=== PATIENT | female | born 1985 | race Caucasian/White ===

== ENCOUNTER 2024-07-15 09:08 | Outpatient (OUT) | payer OTHER, SELFPAY ==
[2024-07-15 09:41] LABS: Basophils Percent Auto 0.4 % (0.2-2.0); Eosinophils Absolute Auto 0.4 10^3/uL (0.0-0.7); Eosinophils Percent Auto 4.5 % (0.9-7.0); Hemoglobin 13.3 g/dL (12.0-16.0); Immature Granulocytes Abs Auto 0.02 10^3/uL (0.00-0.03); Immature Granulocytes Pct Auto 0.2 % (0.0-0.5); Lymphocytes Absolute Auto 2.2 10^3/uL (1.2-3.8); Lymphocytes Percent Auto 24.1 % (20.5-60.0); Mean Corpuscular HGB Conc 33.3 g/dL (29.9-35.2); Mean Corpuscular Volume 90.3 fL (81.0-99.0); Mean Platelet Volume 9.6 fL (9.5-13.5); Monocytes Absolute Auto 0.9 10^3/uL (0.3-0.8); Monocytes Percent Auto 9.8 % (1.7-12.0); Neutrophils Absolute Auto 5.5 10^3/uL (1.4-6.5); Platelet Count 329 10^3/uL (150-450); Red Blood Count 4.43 10^6/uL (4.20-5.40); Red Cell Distribution Width 12.1 % (11.0-15.0)
--- NOTE | 2024-07-15 09:44 | MR_ITS ---
The [address] [address] Patient Name: MARIOLA FERREIRA MRN: [id number] date: 1985 Sex: F Assigned Patient Location: MRI Current Patient Location: MRI Accession/Order Number: [id number] Exam Date: 07/15/2024 09:58 Report Date: 07/15/2024 10:53 At the request of: DISHA CASTILLO Procedure: MR head/brain wo con MR head/brain wo con, 07/15/2024 9:58 AM EDT INDICATION: MULTIPLE FALLS R29.6 COMPARISON: Prior CT of the head dated 10/26/2022 TECHNIQUE: Multiplanar, multisequential MRI images of brain were obtained without injection of contrast. FINDINGS: The cerebral sulci as well as ventricular system are appropriate for age. There is no restricted diffusion. There is no intracranial mass, mass effect, midline shift, intra or extra-axial fluid collection or large hemorrhage. Normal flow-void in the intracranial vessels is noted. Mild mucosal thickening within the maxillary sinuses is noted. The visualized portions of orbits, mastoid air cells as well as remainder of paranasal sinuses are unremarkable. MR/MR head/brain wo con IMPRESSION: No acute intracranial process is noted. No definite radiological finding to explain patient's symptoms. Electronically authenticated by: ROSA BURDEN Date: 07/15/2024 10:53
[2024-07-15 10:21] LABS: Anion Gap 9.8; BUN Creatinine Ratio 13.2; Calcium 8.7 mg/dL (8.5-10.1); Carbon Dioxide 28.2 mmol/L (21.0-32.0); Chloride 104 mmol/L (98-107); Estimated GFR (African America >60 (>=60); Estimated GFR (Non-African Ame >60 (>=60); Glucose 90 mg/dL (74-106); Sodium 138 mmol/L (136-145); Thyroid Stimulating Hormone 1.164 uIU/mL (0.358-3.740)
== END 2024-07-15 09:09 | disposition home or self-care (01) ==
LOC: MRI 09:13
PROVIDERS: PCP Family Medicine; Visit Provider Family Medicine
DX: R29.6 Repeated falls (principal); N92.0 Excessive and frequent menstruation with regular cycle; R42 Dizziness and giddiness; R53.83 Other fatigue
CPT/HCPCS: 36415; 70551; 80048; 82728; 84443; 85025

== ENCOUNTER 2025-02-24 09:02 | Outpatient (OUT) | payer OTHER, SELFPAY ==
--- NOTE | 2025-02-24 09:15 | ECG_ITS ---
The [facility] Test Date: 2025-02-24 Pat Name: MARIOLA FERREIRA Department: Room: - Gender: Female [employer]: : 1985 Requested By: DISHA CASTILLO Order Number: [id number] Reading MD: NARAYAN OVIEDO M.D. Measurements Intervals [place] Rate: 72 P: 34 MD: 138 QRS: 21 QRSD: 91 T: 42 QT: 380 QTc: 416 Interpretive Statements SINUS RHYTHM LOW QRS VOLTAGE IN PRECORDIAL LEADS [QRS DEFLECTION < 1.0 mV IN CHEST LEADS] Abnormal ECG No previous ECG available for comparison Electronically Signed On 02-24-2025 17:57:03 EDT by NARAYAN OVIEDO M.D.
--- NOTE | 2025-02-24 09:41 | US_ITS ---
[place] [address] Patient Name: MARIOLA FERREIRA MRN: [id number] date: 1985 Sex: F Assigned Patient Location: CARD Current Patient Location: CARD Accession/Order Number: [id number] Exam Date: 02/24/2025 12:04 Report Date: 02/24/2025 12:05 At the request of: DISHA CASTILLO MD Procedure: US right upper quadrant LIMITED ABDOMINAL ULTRASOUND: CLINICAL HISTORY: Right Upper Quadrant Abdominal Pain COMPARISON: None TECHNIQUE: Grayscale and color Doppler images of the right upper quadrant organs were obtained. FINDINGS: Pancreas: Visualized portions appear unremarkable. Liver: Unremarkable. Gallbladder: Unremarkable. CBD: 2.5 mm RT KIDNEY: No Hydronephrosis US/US right upper quadrant IMPRESSION: NO ACUTE PROCESS. . Impression dictated by: Leonard Orona Jr., D.O. 02/24/2025 12:05 PM Dictation Location: [place] [address] Electronically authenticated by: [id number] Y Date: 02/24/2025 12:05
== END 2025-02-24 09:03 | disposition home or self-care (01) ==
LOC: CARD 09:02
PROVIDERS: PCP Family Medicine; Visit Provider Family Medicine
DX: R10.11 Right upper quadrant pain (principal); R07.9 Chest pain, unspecified
CPT/HCPCS: 76705; 93005

== ENCOUNTER 2025-07-24 21:17 | Emergency (ER) | payer OTHER, SELFPAY ==
[2025-07-24] VITALS (10 sets, daily range): BP systolic 107–147; BP diastolic 62–86; PULSE 69–79; TEMP 37.1; O2SAT 96–100; BMI 33.8
--- NOTE | 2025-07-24 21:35 | CT_ITS ---
The [address] [address] Patient Name: MARIOLA FERREIRA MRN: [id number] date: 1985 Sex: F Assigned Patient Location: ER Current Patient Location: ED.MAIN Accession/Order Number: [id number] Exam Date: 07/24/2025 21:43 Report Date: 07/24/2025 22:00 At the request of: PING CLEARY MD Procedure: CT head/brain wo con Unenhanced head CT TECHNIQUE: Contiguous axial imaging of the head. The CT exam was performed using one or more the following dose reduction techniques: Automated exposure control, adjustment of the MA and/or Kv according to patient size, or use of the iterative reconstruction technique. COMPARISON: MRI the brain 07/15/2024 HISTORY: Nausea. Dizziness VENTRICLES: Within normal limits ATROPHY: None BRAIN PARENCHYMA: Adequate sweeney-white matter differentiation identified. HEMORRHAGE: None HERNIATION: No mass effect or herniation INFARCTION: No recent vascular distribution infarction is seen. EXTRA-AXIAL FLUID COLLECTIONS None MIDBRAIN: Unremarkable SHELLY: Unremarkable MEDULLA: Unremarkable SINUSES: Unremarkable ORBITS: Grossly unremarkable MASTOIDS: Unremarkable BONY STRUCTURES Intact ADDITIONAL FINDINGS: CT/CT head/brain wo con IMPRESSION: No acute findings. Impression dictated by: Guillermo Ruiz M.D. 07/24/2025 10:00 PM Dictation Location: [place] [address] Electronically authenticated by: [id number] Y Date: 07/24/2025 22:00
--- NOTE | 2025-07-24 21:35 | ED_ITS ---
HPI HPI - General Adult General Chief complaint: Dizziness Stated complaint: DIZZINESS, NAUSEA Time Seen by Provider: 07/24/25 21:19 Source: patient Mode of arrival: walk-in Limitations: no limitations History of Present Illness HPI narrative: 39-year-old female presented for an abrupt onset episode of vertigo and lightheadedness. This happened while she was standing in her kitchen talking to her friend. She felt like she was spinning. She has been slowly weaning off Pristiq over period of many months and has no concern that the medicine is the cause of this symptom. She had an episode like this several months ago but it was not as bad and she did not seek medical care at that time. Related Data Home Medications ?Medication ?Instructions ?Recorded ?Confirmed albuterol sulfate 90 mcg/actuation 2 inh inhalation Q6 H PRN shortness 07/24/25 07/24/25 aerosol inhaler of breath or wheezing cetirizine 10 mg tablet (24Hour 10 mg PO DAILY 5 07/24/25 Allergy) clonazepam 0.5 mg tablet 0.5 mg PO QDAY PRN anxiety 1 07/24/25 desvenlafaxine succinate 25 mg 25 mg PO .COMPLEX 07/2407/24/25 tablet,extended release 24 hr (Pristiq) fluoxetine 20 mg capsule 20 mg PO QDAY 07/24/2507/24 Previous Rx's ?Medication ?Instructions ?Recorded meclizine 25 mg tablet 25 mg PO TID PRN dizziness # 20 tabs 07/24/25 Allergies Allergy/AdvReac Type Severity Reaction Status Date / Time Sulfa (Sulfonamide Allergy Rash Verified 07/24/25 21:24 Antibiotics) levofloxacin (From Levaquin) AdvReac Muscle Pain Verified 07/24/25 21:24 Review of Systems ROS Narrative A ten point review of systems is negative except as noted above. PFSH PFSH Social History Little interest or pleasure in doing things: not at all Feeling down, depressed, or hopeless: not at all Exam Narrative Exam Narrative: Nurses note and vital signs reviewed and patient is not hypoxic. General:The patient appears in no apparent distress.Patient is resting comfortably on cart. Skin:Warm, dry, no pallor noted.There is no rash noted. Head:Normocephalic, atraumatic Eye: Normal conjunctiva, no drainage, EOMI. PERRL Ears, Nose, Mouth, and Throat: oral mucosa is moist. Nares patent. Cardiovascular:Regular Rate and Rhythm Respiratory:Patient is in no distress, no accessory muscle use, lungs are clear to auscultation, no wheezing, rales or rhonchi Back:non-tender GI: Soft and nontender Musculoskeletal: The patient has no evidence of calf tenderness, no pitting ed erasmo, symmetrical pulses noted bilaterally Neurological:A&O x4, normal speech; upper lower extremity strength 5 out of 5 and symmetric. Psychiatric:Cooperative Constitutional Vital Signs, click to edit/add: Last Vital Signs Temp 98.7 F 07/24/25 21:30 Pulse 79 07/24/25 22:30 Resp 25 H 07/24/25 22:30 BP 147/86 H 07/24/25 21:30 Pulse Ox 96 07/24/25 22:30 O2 Del Method Room Air 07/24/25 21:30 Course Vital Signs Vital signs: Vital Signs Pulse Oximetry 98 07/24/25 21:22 Temperature 98.7 F 07/24/25 21:30 Pulse Rate 79 07/24/25 22:30 Respiratory Rate 25 H 07/24/25 22:30 Blood Pressure 147/86 H 07/24/25 21:30 Pulse Oximetry 96 07/24/25 22:30 Oxygen Delivery Method Room Air 07/24/25 21:30 Medical Decision Making [facility] Narrative Medical decision making narrative: Her workup including CT brain is negative. She was given Antivert and seems to be feeling improved. She is discharged home with a prescription for Antivert and follow-up with her doctor if needed. Treatment diagnosis and follow-up were discussed with the patient. Differential Diagnosis Differential Diagnosis: Vertigo, dehydration, anemia, cardiac dysrhythmia Lab Data Lab results reviewed: Yes I reviewed the patient's lab results Labs: Lab Results 07/24/25 Range/Units 21:40 WBC 10.1 (4.0-11.0) 10^3/uL RBC 4.25 (4.20-5.40) 10^6/uL Hgb 13.2 (12.0-16.0) g/dL Hct 37.4 (36.0-48.0) % MCV 88.0 (81.0-99.0) fL MCH 31.1 (26.7-34.0) pg MCHC 35.3 H (29.9-35.2) g/dL RDW 12.0 (11.0-15.0) % Plt Count 245 (150-450) 10^3/uL MPV 9.7 (9.5-13.5) fL Neut % (Auto) 62.1 (43.0-75.0) % Lymph % (Auto) 24.7 (20.5-60.0) % [place] % (Auto) 9.4 (1.7-12.0) % Eos % (Auto) 3.2 (0.9-7.0) % Baso % (Auto) 0.3 (0.2-2.0) % Neut # (Auto) 6.3 (1.4-6.5) 10^3/uL Lymph # (Auto) 2.5 (1.2-3.8) 10^3/uL [place] # (Auto) 1.0 H (0.3-0.8) 10^3/uL Eos # (Auto) 0.3 (0.0-0.7) 10^3/uL Baso # (Auto) 0.0 (0.0-0.1) 10^3/uL Abs Immat Gran (auto) 0.03 (0.00-0.03) 10^3/uL Imm/Tot Granulo (auto) 0.3 (0.0-0.5) % Sodium 137 (136-145) mmol/L Potassium 3.3 L (3.5-5.1) mmol/L Chloride 102 (98-107) mmol/L Carbon Dioxide 23.3 (21.0-32.0) mmol/L Anion Gap 15.0 BUN 14.0 (7.0-18.0) mg/dL Creatinine 0.98 (0.55-1.02) mg/dL Est GFR ( Amer) >60 (>=60 mL/min/1.73m^2) Est GFR (Non-Af Amer) >60 (>=60 mL/min/1.73m^2) BUN/Creatinine Ratio 14.3 Glucose 108 H (74-106) mg/dL Calcium 8.6 (8.5-10.1) mg/dL Serum HCG, Qual Negative (NEGATIVE) Imaging Data CT scan - head: Radiologist's impression: ITS Impressions Head CT 07/24/25 21:35 IMPRESSION: No acute findings. Impression dictated by: Guillermo Ruiz M.D. 07/24/2025 10:00 PM Dictation Location: [place] [address] Electronically authenticated by: [id number] Y Date: 07/24/2025 22:00 ECG Data Attestation: I personally reviewed and interpreted this ECG as follows: (EKG on my interpretation shows sinus rhythm with rate of 61 and no acute change) Discharge Plan Discharge Chief Complaint: Dizziness Clinical Impression: Vertigo Patient Disposition: Home, Self-Care Time of Disposition Decision: 22:48 Condition: Good Mode of Transportation: Private Vehicle Prescriptions / Home Meds: New meclizine 25 mg tablet 25 mg PO TID PRN (Reason: dizziness) Qty: 20 0RF No Action albuterol sulfate 90 mcg/actuation HFA aerosol inhaler 2 inh INHALATION Q6H PRN (Reason: shortness of breath or wheezing) clonazepam 0.5 mg tablet 0.5 mg PO QDAY PRN (Reason: anxiety) cetirizine [24Hour Allergy] 10 mg tablet 10 mg PO DAILY fluoxetine 20 mg capsule 20 mg PO QDAY desvenlafaxine succinate [Pristiq] 25 mg tablet extended release 24 hr 25 mg PO .COMPLEX Rx Instructions: 25 mg orally every 3 days; Print Language: Iraqi Referrals: Teresa Lagos MD [Primary Care Provider, Family Practice] - 1 week
--- NOTE | 2025-07-24 21:35 | ECG_ITS ---
The [facility] Test Date: 2025-07-24 Pat Name: MARIOLA FERREIRA Department: Room: - Gender: Female [employer]: : 1985 Requested By: [id number] Order Number: [id number] Reading MD: NARAYAN OVIEDO M.D. Measurements Intervals [place] Rate: 61 P: 38 NV: 140 QRS: 20 QRSD: 92 T: 12 QT: 428 QTc: 432 Interpretive Statements 1100 Sinus rhythm 8102 Low QRS voltage in chest leads Abnormal ECG Compared to ECG 02/24/2025 09:18:25 No significant changes Electronically Signed On 07-25-2025 18:39:18 EDT by NARAYAN OVIEDO M.D.
[2025-07-24 21:50] LABS: Hematocrit 37.4 % (36.0-48.0); Hemoglobin 13.2 g/dL (12.0-16.0); Immature Granulocytes Abs Auto 0.03 10^3/uL (0.00-0.03); Immature Granulocytes Pct Auto 0.3 % (0.0-0.5); Lymphocytes Absolute Auto 2.5 10^3/uL (1.2-3.8); Mean Corpuscular HGB Conc 35.3 g/dL (29.9-35.2); Mean Corpuscular Hemoglobin 31.1 pg (26.7-34.0); Mean Corpuscular Volume 88.0 fL (81.0-99.0); Platelet Count 245 10^3/uL (150-450); Red Blood Count 4.25 10^6/uL (4.20-5.40); White Blood Count 10.1 10^3/uL (4.0-11.0)
--- OUTSIDE RECORDS SUMMARY | 2025-07-24 21:56 | XMS_ITS | Clinical Summary ---
Author Organization [facility] 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 1 Bottle 3 5 Active albuterol sulfate HFA (VENTOLIN HFA) 108 (90 Base) MCG/ACT inhaler Inhale 2 puffs into the lungs every 4 hours as needed for Wheezing or Shortness of Breath 1 Inhaler 1 9 Active fluticasone-kyrie meterol (ADVAIR HFA) 115-21 MCG/ACT inhaler Acti ve desvenlafaxine succinate (PRISTIQ) 100 MG TB24 extended release tablet Take 1 tablet by mouth daily 3 Active clonazePAM (KLONOPIN) 0.5 MG tablet take 1 tablet by mouth once daily if needed for anxiety 3 Active cyclobenzaprine (FLEXERIL) 5 MG tablet 1 Active Fremanezumab-vf rm 225 MG/1.5ML SOSY Inject into the skin Active dicyclomine (BENTYL) 10 MG capsule Take 1 capsule by mouth 3 times daily as needed (abdominal pain) 15 capsule 5 Active lisdexamfetamin e (VYVANSE) 10 MG capsule TAKE 1 CAPSULE BY MOUTH EVERY MORNING WITH FOOD 5 Active metroNIDAZOLE (METROGEL) 0.75 % gel APPLY TO FACE EVERY DAY AT BEDTIME 5 Active Active Problems Problem Noted Date Diagnosed Date Anxiety Asthma Overview (02/08/2019): allergy induced Allergic rhinitis Immunizations Immunization Administration Dates Next Due DTP 07/04/1986,04/04/1986,01/31/1986 DTaP vaccine 06/14/1991,07/17/1989 Hepatitis A 07/28/2014,06/17/2014 Hepatitis A Vaccine 05/23/2015 Hepatitis B vaccine 05/23/2015 Hib vaccine 02/05/1988 MMR, PRIORIX, M-M-R II, (age 12m+), SC, 0.5mL 05/23/2015,06/17/2014,06/12/1987 Pneumococcal, PPSV23, PNEUMO VAX 23, (age 2y+), SC/IM, 0.5mL 07/15/2019 Polio OPV 06/14/1991, 7,04/04/1986,1985 TDaP, ADACEL (age 10y-64y), BOOSTRIX (age 10y+), IM, 0.5mL 01/21/2014,01/22/2013 Family History Medical History Relation Name Comments Arthritis Father chronic back is sues Arthritis Maternal Grandmother High Blood Pressure Maternal Grandmother Depression Mother Other Mother interstitial cy stitis Arthritis Paternal Grandfather Cancer Paternal Grandfather melanom a High Blood Pressure Paternal Grandfather Diabetes Paternal Grandmother High Blood Pressure Paternal Grandmother Other Sister POTS Relation Name Status Comments Father Alive Maternal Grandfather Alive Maternal Grandmother Alive Mother Alive Paternal Grandfather Alive Paternal Grandmother Alive Sister Alive Social History Tobacco Use Types Packs/Day Years Used Date Smoking Tobacco: Never Smokeless Tobacco: Never Tobacco Cessation:Counseling Given: Yes Alcohol Use Standard Drinks/Week Comments Yes 0 (1 standard drink = 0.6 oz pur e alcohol) rarely AUDIT-C Answer Date Recorded Q1: How often do you have a drink containing alc ohol? Monthly or less 03/01/2025 Q2: How many drinks containi ng alcohol do you have on a typical day when you are drinking? 1 or 2 03/01/2025 Q3: How often do you have si x or more drinks on one occasion? Less than monthly 03/01/2025 Overall Financial Resource Strain (CARDIA) Answe r Date Recorded How hard is it for you to pa y for the very basics like food, housing, medical care, and heating? Somewhat hard 01/14/2024 PHQ-2 Answer Date Recorded PHQ-9 Total Score 2 01/14/2024 Hunger Vital Sign Answer Date Recorded Within the past 12 months, y ou worried that your food would run out before you got the money to buy more. Never true 01/14/20 Within the past 12 months, t he food you bought just didn't last and you didn't have money to get more. Never true 01/14/2024 PRAPARE - Transportation Answer Date Re corded Lack of Transportation (Medical) Not on file 01/14/2024 In the past 12 months, has l ack of transportation kept you from meetings, work, or from getting things needed for daily living? No 01/14/2024 Housing Stability Vital Sign Answer Andrews e Recorded Unable to Pay for Housing in the Last Year Not o n file 01/14/2024 Number of Places Lived in the Last Year Not on f ile 01/14/2024 In the last 12 months, was t here a time when you did not have a steady place to sleep or slept in a jail (including now)? No 01/14/2024 Food Insecurity Answer Date Recorded Within the past 12 months, y ou worried that your food would run out before you got the money to buy more. 1 01/14/2024 Within the past 12 months, t he food you bought just didn't last and you didn't have money to get more. 1 01/14/2024 Interpersonal Safety Domain Source: IP Abuse Scr eening Answer Date Recorded Physical abuse Denies 03/01/2025 Verbal abuse Denies 03/01/2025 Emotional abuse Denies 03/01/2025 Financial abuse Denies 03/01/2025 Sexual abuse Denies 03/01/2025 Comments No Sex and Gender Information Value Date Recorded Sex Assigned at Not on file Legal Sex Female 1:24 PM EST Gender Identity Not on file Sexual Orientation Not on file Last Filed Vital Signs Vital Sign Reading Time Taken Comments Blood Pressure 100/70 03/03/2025 11:33 AM EDT Pulse 86 03/03/2025 11:33 AM EDT Temperature 36.8 C (98.2 F) 03/03/2025 11:33 AM EDT Respiratory Rate 16 03/01/2025 2:57 PM EDT Oxygen Saturation 97% 03/03/2025 11: 33 AM EDT Inhaled Oxygen Concentration - - Weight 88.8 kg (195 lb 12.8 oz) 025 11:33 AM EDT Height 165.1 cm (5' 5 ) 10/13/2024 2:11 PM EST Body Mass Index 32.58 10/13/2024 2:11 PM EST Plan of Treatment Health Maintenance Due Date Last Done Comments HIV screen 2000 Hepatitis C screen 2003 Pap smear 2006 Cervical cancer screen 2015 HPV (without or with Pap) 2015 Pneumococcal 0-49 years Vaccine (2 of 2 - PCV) 07/15/2020 07/15/2019 Depression Screen 01/13/2025 01/14/2024 Flu vaccine (#1) 05/23/2025 COVID-19 Vaccine ( - season) 2025 DTaP/Tdap/Td vaccine (9 - Td or Tdap) 11/16/2032 11/16/2022, 01/21/2014, 01/22/2013, Additional history exists Hib vaccine Completed 02/05/1988 Polio vaccine Completed 06/14/1991, 06/24, 04/04/1986, Additional history exists Hepatitis A vaccine Completed 05/23/2015, 07/28/2014, 07/28/2014, Additional history exists Hepatitis B vaccine Completed 05/23/2015, 07/28/2014, 06/17/2014 HPV vaccine (No Doses Required) Completed Meningococcal (ACWY) vaccine Aged Out No longer eligible based on patient's age to complete this topic Meningococcal B vaccine Aged Out No l onger eligible based on patient's age to complete this topic Varicella vaccine Discontinued Insurance Octane Lending Octane Lending Octane Lending Care Teams Landscape Architecture Professor Relationship Specialty Start Date End Date Kayy Ayala DO [address] [place] [address], [place] [id number] PCP - General 10/10/15
--- OUTSIDE RECORDS SUMMARY | 2025-07-24 21:57 | XMS_ITS | CCD ---
Author Organization [facility] CliniSyoh Care Team Providers Care Cost Estimator Name Role Phone Jacy Younger Unavailable EKATERINA BINGHAM Primary Care Physician Ana Ayala Primary Care Provider [phone] Ana Ayala DO Primary Care Provider Ekaterina Bingham DO. Primary Care Provider JULITO KOEHLER Attending Unavailab EKATERINA Colon Primary Care Unavailable Ekaterina Bingham DO Primary Care Provider [phone] Jacy Younger CNP Primary Care Provide r Carisa MOLINA, Jacy Woodall Primary Care Provide r Disha Castillo Unavailable Ana Ayala DO Primary Care Provider ANNA, DR DISHA Avilez Admitting Unavailable ANNA, DR DISHA Avilez Attending Unavailable ANNA, DR DISHA Avilez Primary Care Unavailable ANNA, DR DISHA Avilez Primary Care Unavailable DAVIS ., DR TRACY Admitting Unavailable DAVIS Aguilar, DR TRACY Attending Unavailable DAKOTAH, DR WARNER Carney Consulting Unavailable YEE ., VICKI AMBROSIO Consulting Unavailabl e ANNA, DR DISHA Avilez Admitting Unavailable ANNA, DR DISHA Avilez Attending Unavailable ANNA, DR DISHA Avilez Primary Care Unavailable ANNA, DR DISHA Avilez Admitting Unavailable ANNA, DR DISHA Avilez Attending Unavailable ANNA, DR DISHA Avilez Primary Care Unavailable EDIE, DR CLEVELAND Gan Consulting Unavailable ANNA, DR DISHA Avilez Consulting Unavailable ANNA, DR DISHA Avilez Primary Care Unavailable ANNA, DR DISHA Avilez Admitting Unavailable ANNA, DR DISHA Avilez Attending Unavailable EDIE, DR CLEVELAND Gan Consulting Unavailable CASTILLO, DR DISHA Avilez Consulting Unavailable CASTILLO, DR DISHA Avilez Admitting Unavailable CASTILLO, DR DISHA Avilez Attending Unavailable CASTILLO, DR DISHA Avilez Primary Care Unavailable WEST, DR CLEVELAND Gan Consulting Unavailable CASTILLO, DR DISHA Avilez Consulting Unavailable CASTILLO, DR DISHA Avilez Admitting Unavailable CASTILLO, DR DISHA Avilez Attending Unavailable CASTILLO, DR DISHA Avilez Primary Care Unavailable CASTILLO, DR DISHA Avilez Consulting Unavailable Magalis Hutton Unavailable Disha Castillo MD Primary Care Provider [phone] Attending Unavailable LYNNE NOGUEIRA Attending Unavailable LYNNE NOGUEIRA Attending Unavailable Disha Castillo MD Primary Care Provider Disha Castillo MD Attending Provider Disha Castillo Attending Unavailable Anna, Disha Avilez Primary Care Unavailable Disha Castillo Admitting Unavailable Ana Ayala DO Primary Care Provider [phone] MT BAEZ Attending Unavailable ANA AYALA Primary Care Unavailable Disha Castillo MD Primary Care Provider Disha Castillo MD Attending Provider Griselda Mcrae APRN Attending Provider [phone] Disha Castillo MD Primary Care Provider Magalis Hutton APRN Attending Provider Unavailable Unavailable Unavailable Allergies Allergy Classification Reported Allergen(s) Allergy Type Date of Onset Reaction(s) Facility Cat Hair Extract (2 sources) Cat Hair Extract Drug Allergy 016 [facility] Quinolones (antibiotic) (9 sources) levoFLOXacin; Translations: [LEVOFLOXACIN] Drug Allergy Other (See Comments) [facility] Sulfamethoxazole / Trimethoprim (6 sources) Sulfamethoxazole / Trimethoprim Drug Allergy [facility] Sulfonamides (antibiotic) (4 sources) Sulfonamides (Antibiotic); Translations: [SULFA (SULFONAMIDE ANTIBIOTICS)] Drug Allergy 014 Rash [facility] (20 sources) levoFLOXacin Drug Allergy 018 [facility] (11 sources) Sulfonamides (Antibiotic) Propensity to adverse reactions to drug Rash [facility] (6 sources) Cat Hair Extract Drug Allergy [place] (3 sources) levoFLOXacin Drug Allergy Other (See Comments) [place] (1 source) Sulfonamides (Antibiotic) Propensity to adverse reactions to drug Rash [place] (14 sources) Sulfamethoxazole / Trimethoprim Drug Allergy [facility] (7 sources) levoFLOXacin Drug Allergy Unknown [facility] Other (7 sources) Sulfonamides (Antibiotic) Propensity to adverse reactions Unknown LIVELENZ Other (10 sources) Sulfonamides (Antibiotic) Propensity to adverse reactions to drug Rash [facility] (1 source) Sulfonamides (Antibiotic) Drug allergy (disorder) [facility] (3 sources) Sulf-10 Drug allergy Unknown LIVELENZ Other (3 sources) Allergies Reconciled Propensity to adverse reactions Unknown [facility]EL[facility] Other (8 sources) Cat Hair Extract Propensity to adverse reactions [facility] (1 source) levoFLOXacin Drug Allergy 024 [facility] (1 source) Sulfonamides (Antibiotic) Drug allergy (disorder) 024 [facility] Medications Current Medications Medication Drug Class(es) Dates Sig (Normalized) Sig (Original) albuterol 0.833 mg/ml / ipratropium bromide 0.167 mg/ml inhalation solution (12 sources) Anticholinergic, beta2-Adrenergic Agonist Start: 07-02-2021 ipratropium-albute roL (Duo-Neb) 0.5-2.5 mg/3 mL nebulizer solution 3 mL Start: 12-23-2020 End: 12-23-2021 ipratropium-albuteroL (Duo-N eb) 0.5-2.5 mg/3 mL nebulizer solution Indications: Moderate persistent asthma, unspecified whether complicated Take 3 mL by nebulization 4 (four) times a day if needed for wheezing or shortness of breath. 360 mL 4 12/23/2020 12/23/2021 Active alpha-tocopherol acetate 30 unt / ascorbic acid 100 mg / beta carotene 1000 unt / calcium carbonate 200 mg / calcium pantothenate 7 mg / cholecalciferol 400 unt / docusate sodium 25 mg / ferrous fumarate 29 mg / folic acid 1 mg / niacinamide 15 mg / pyridoxine hydrochloride 20 mg / riboflavin 3 mg / thiamine 3 mg / vitamin b12 0.012 mg / zinc oxide 20 mg oral tablet (8 sources) Vitamin B12, Vitamin D, Vitamin C Start: 06-29-2022 Vit-DSS-Fe Fum-FA ( 19) 29-1 MG tablet 1 (one) time each day at the same time 06/29/2022 Active amoxicillin 875 mg / clavulanate 125 mg oral tablet (3 sources) Penicillin-class Antibacterial Start: 02-21-2023 take 1 tablet by mouth every twelve hours Amoxicillin-Pot Clavulanate 875-125 MG 1 tablet Orally every 12 hrs for 10 day(s) February, Active Start: 01-23-2023 End: 02-02-2023 take 1 tablet by mouth twice daily amoxicillin-clavulanate (AUGMENTIN) 875-125 MG per tablet Indications: Acute non-recurrent maxillary sinusitis , RUQ pain Take 1 tablet by mouth 2 times daily for 10 days 20 tablet 0 01/23/2023 02/02/2023 Active Start: 03-15-2021 End: 03-22-2021 take 1 tablet by mouth twice daily amoxicillin-pot clavulanate (Augmentin) 875-125 mg tablet Indications: Acute non-recurrent pansinusitis Take 1 tablet by mouth 2 (two) times a day for 7 days. 14 tablet 0 03/15/2021 03/22/2021 Active benzonatate 200 mg oral capsule (3 sources) Non-narcotic Antitussive Start: 03-08-2023 take 1 capsule by mouth every eight hours Benzonatate 200 MG 1 capsule Orally Three times a day for 10 day(s) February, Active Start: 12-14-2022 take 1 capsule by [facility] every eight hours Benzonatate 200 MG 1 capsule Orally Three times a day for 10 days Nov, Active brexpiprazole 0.5 mg oral tablet (4 sources) Atypical Antipsychotic Start: 06-08-2023 End: 12-04-2023 take 1 tablet by mouth at bedtime Rexulti 0.5 MG tablet Take 1 tablet by mouth at bedtime 0 06/08/2023 12/04/2023 Discontinued (Therapy completed) Start: 11-18-2022 take 1 tablet by korina th once daily at bedtime REXULTI 0.5 MG TABS tablet Take 1 tablet by mouth nightly at bedtime. 0 11/18/2022 Active brompheniramine maleate 0.4 mg/ml / dextromethorphan hydrobromide 2 mg/ml / pseudoephedrine hydrochloride 6 mg/ml oral solution (2 sources) alpha-Adrenergic Agonist, Uncompetitive H-zbfgpl-P-aspartate Receptor Antagonist, Sigma-1 Agonist Start: 02-17-2023 take 10 mL by mouth every six hours Rnthurqtd-Xyhyvmbt-OG 30-2-10 MG/5ML 10 mL Orally every 6 hours for 5 days Jan, Active busPIRone hydrochloride 10 mg oral tablet (2 sources) Start: 02-11-2020 End: 02-05-2021 take 1 tablet by mouth three times daily busPIRone (BUSPAR) 10 MG tablet Take 1 tablet by mouth 3 times daily 90 tablet 11 02/11/2020 02/05/2021 Active Start: 12-26-2019 End: 12-23-2020 take 1 tablet by mouth every twelve hours busPIRone (Buspar) 10 mg tablet Take 1 tablet by mouth every 12 (twelve) hours. 0 12/26/2019 12/23/2020 Discontinued cefuroxime 250 mg oral tablet (2 sources) Cephalosporin Antibacterial Start: 07-02-2021 End: 07-09-2021 take 1 tablet by mouth twice daily cefuroxime (Ceftin) 250 mg tablet Take 1 tablet (250 mg total) by mouth 2 (two) times a day for 7 days. 14 tablet 0 07/02/2021 07/09/2021 Active cetirizine hydrochloride 10 mg oral tablet (20 sources) Histamine-1 Receptor Antagonist Start: 06-13-2019 take 1 tablet by mouth once daily Cetirizine (Zyrtec) 10 mg tablet Active 1 TAB PO Daily April 15, 2024 12:00am FreeTextSi tablet Orally Once a day; Note: Source Status: Taking; Provider: Anna Moore ( ) Complies with drug therapy clonazePAM 0.5 mg oral tablet (20 sources) Benzodiazepine Start: 10-19-2020 take 1 tablet by mouth once daily at bedtime Clonazepam 0.5 mg tablet Active 1 TAB PO Daily at bedtime April 15, 2024 12:00am FreeTextSi tablet at bedtime Orally Once a day; Note: Source Status: Taking; Provider: Anna Moore ( ) Complies with drug therapy 24 hr desvenlafaxine succinate 25 mg extended release oral tablet (20 sources) Serotonin and Norepinephrine Reuptake Inhibitor Start: 02-21-2025 take 1 tablet by mouth once daily Desvenlafaxine Succinate 25 mg tablet extended release 24 hr Active 25 MG PO Daily February 21, 2025 12:00am Complies with drug therapy Start: 10-31-2022 End: 02-21-2025 take 1 tablet by mouth once daily Desvenlafaxine Succinate 100 mg tablet extended release 24 hr Discontinued 50 MG PO Daily June 13, 2024 9:51am February 21, 2025 9:49am FreeTextSi tablet Orally Once a day; Note: Source Status: Taking; Provider: Anna Moore ( ) Start: 10-31-2022 take 1 tablet by korina th once daily desvenlafaxine succinate (PRISTIQ) 100 MG TB24 extended release tablet Take 1 tablet by mouth daily 0 10/31/2022 Active Start: 08-02-2021 desvenlafaxine (Pristiq) 100 mg 24 hr tablet Start: 12-14-2020 take 1 tablet by korina th once daily desvenlafaxine (Pristiq) 50 mg 24 hr tablet Take 1 tablet by mouth every night. 0 12/14/2020 Active Start: 12-03-2020 End: 12-23-2020 take 1 tablet by mouth once daily desvenlafaxine (Pristiq) 25 mg 24 hr tablet Take 1 tablet by mouth every night. 0 12/03/2020 12/23/2020 Discontinued dexamethasone 1 mg/ml / neomycin 3.5 mg/ml / polymyxin b [id number] unt/ml ophthalmic suspension (1 source) Aminoglycoside Antibacterial, Polymyxin-class Antibacterial, Corticosteroid Start: 07-07-2025 take 1 drop(s) into the eye(s) every eight hours Neomycin-Polymyxin B-Dexameth (Maxitrol) 3.5mg/mL-10,000 unit/mL-0.1 % drops,suspension Active 1 DROPS OPHTHALMIC Q8H 5 5 July 07, 2025 12:00am Complies with drug therapy dextromethorphan hydrobromide 1.5 mg/ml / pyrilamine maleate 1.5 mg/ml oral solution (5 sources) Uncompetitive V-fyoata-V-aspartat e Receptor Antagonist, Sigma-1 Agonist Start: 12-14-2022 End: 12-04-2023 take 5 mL by mouth three times daily Fortuna DM 7.5-7.5 MG/5ML liquid TAKE 5 MLS BY MOUTH THREE TIMES A DAY IF NEEDED FOR 7 DAYS 0 12/14/2022 12/04/2023 Discontinued (Ineffective) diazePAM 2 mg oral tablet (4 sources) Benzodiazepine Start: 10-03-2020 diazePAM (Valium) 2 mg tablet Take 1 tablet by mouth if needed. 0 10/03/2020 Active dicyclomine hydrochloride 10 mg oral capsule (2 sources) Anticholinergic Start: 03-01-2025 End: 03-01-2025 take 1 capsule by mouth three times daily as needed for pain dicyclomine (BENTYL) 10 MG capsule Take 1 capsule by mouth 3 times daily as needed (abdominal pain) 15 capsule 03/01/2025 Active docosahexaenoic acid 120 mg / eicosapentaenoic acid 180 mg oral capsule (8 sources) take 1 capsule by mouth in the morning omega-3 1000 MG capsule capsule Take 1,000 mg by mouth in the morning. Active Ethinyl Estradiol / Ferrous fumarate / Norethindrone (4 sources) Estrogen Start: 04-21-2021 Juany Fe 11/11, 28, 1 mg-20 mcg (21)/75 mg (7) tablet Fish Oils (3 sources) take 1 capsule by mouth once daily omega-3 (Fish Oil) 1000 mg capsule Take 1,000 mg by mouth 1 (one) time each day. 0 Active FLUoxetine 20 mg oral capsule (1 source) Serotonin Reuptake Inhibitor Start: 07-07-2025 take 1 capsule by mouth once daily Fluoxetine 20 mg capsule Active 20 MG PO Daily July 07, 2025 12:00am Complies with drug therapy fluticasone propionate 0.05 mg/actuat metered dose nasal spray (20 sources) Corticosteroid Start: 04-15-2024 take 1 spray(s) nasal route once daily Fluticasone Propionate (Flonase Allergy Relief) 50 mcg/actuation spray,suspension Active 1 SPRAY INTRANASAL Daily April 15, 2024 12:00am FreeTextSi spray in each nostril Nasally Once a day; Note: Source Status: Taking; Provider: Anna Moore ( ) Complies with drug therapy Start: 06-13-2019 End: 07-02-2021 take 2 spray(s) nasal route once daily fluticasone (Flonase Allergy Relief) 50 mcg/actuation nasal spray Administer 2 sprays into each nostril 1 (one) time each day. 0 06/13/2019 07/02/2021 Discontinued (Stop Taking at Discharge) Start: 01-06-2015 fluticasone (F LONASE) 50 MCG/ACT nasal spray 2 sprays by Nasal route daily. 1 Bottle 3 01/06/2015 Active take 2 spray(s) nasa l route in the morning fluticasone (Flonase Sensimist) 27.5 MCG/SPRAY nasal spray Administer 2 sprays into each nostril in the morning. Active take 1 spray(s) nasa l route once daily Flonase Allergy Relief 50 MCG/ACT 1 spray in each nostril Nasally Once a day Active take 1 spray(s) nasa l route once daily Flonase Allergy Relief 50 MCG/ACT 1 spray in each nostril Nasally Once a day Active 1.5 ml fremanezumab-vfrm 150 mg/ml prefilled syringe (5 sources) End: 12-04-2023 Fremanezumab-vfrm 225 MG/1.5ML SOSY Inject into the skin Active 12 hr guaiFENesin 600 mg extended release oral tablet (7 sources) Start: 04-14-2021 End: 04-14-2022 take 2 tablets by mouth twice daily guaiFENesin (Mucinex) 600 mg 12 hr tablet Indications: Moderate persistent chronic asthma without complication , Upper respiratory tract infection, unspecified type Take 2 tablets (1,200 mg total) by mouth 2 (two) times a day. Do not crush, chew, or split. 120 tablet 11 04/14/2021 04/14/2022 Active Levonorgest-Eth Estrad 91-Day (SEASONIQUE PO) (2 sources) Levonorgest-Eth Estrad 91-Day (SEASONIQUE PO) Take by mouth. 0 Active lisdexamfetamine dimesylate 10 mg oral capsule (9 sources) Central Nervous System Stimulant Start: 02-21-2025 take 1 capsule by mouth once daily as needed Lisdexamfetamine 10 mg capsule Active 10 MG PO Daily as needed February 21, 2025 12:00am Complies with drug therapy End: 08-20-2024 lisdexamfetamine (Vyvanse) 3 0 MG capsule Not Available Oral for 30 Days 08/20/2024 Discontinued (Therapy completed) methylPREDNISolone 4 mg oral tablet (3 sources) Corticosteroid Start: 07-21-2023 methylPREDNISo lone 4 MG as directed Orally for 6 days Jun, Active Start: 02-17-2023 methylPREDNISo lone 4 MG as directed Orally for daily dose take half with breakfast, half with dinner for 6 days Jan, Active metroNIDAZOLE 7.5 mg/ml topical cream (6 sources) Nitroimidazole Antimicrobial Start: 06-13-2024 Metronidazole 0.75 % cream Active 1 APPLIC TOPICAL Daily 45 June 13, 2024 12:00am Complies with drug therapy montelukast 10 mg oral tablet (2 sources) Leukotriene Receptor Antagonist Start: 08-20-2017 take 1 tablet by mouth once daily montelukast (SINGULAIR) 10 MG tablet Indications: Uncomplicated asthma, unspecified asthma severity, unspecified whether persistent Take 1 tablet by mouth nightly 30 tablet 0 08/20/2017 Active Multiple Vitamin (Multi-Vitamin) tablet (8 sources) take 1 tablet by mouth in the morning Multiple Vitamin (Multi-Vitamin) tablet Take 1 tablet by mouth in the morning. Active take 1 tablet by mouth in the mo rning Multiple Vitamin (Multi-Vitamin) tablet Take 1 tablet by mouth in the morning. 0 Active multivitamin tablet (3 sources) take 1 tablet by mouth once daily multivitamin tablet Take 1 tablet by mouth 1 (one) time each day. 0 Active nitrofurantoin, macrocrystals 25 mg / nitrofurantoin, monohydrate 75 mg oral capsule (1 source) Nitrofuran Antibacterial Start: End: take 1 capsule by mouth twice daily nitrofurantoin, macrocrystal-monohydra te, (MACROBID) 100 MG capsule Take 1 (one) capsule (100 mg total) by mouth 2 (two) times a day for 7 days . 14 capsule 0 02/14/2021 02/21/2021 Active oxyCODONE hydrochloride 5 mg oral tablet (2 sources) Opioid Agonist Start: End: take 1 tablet by mouth every six hours for pain oxyCODONE (Roxicodone) 5 mg immediate release tablet Indications: Postoperative pain Take 1 tablet (5 mg total) by mouth every 6 (six) hours if needed for severe pain for up to 5 days. 15 tablet 0 07/02/2021 07/07/2021 Active phenazopyridine hydrochloride 200 mg delayed release oral tablet (1 source) Start: End: take 1 tablet by mouth three times daily as needed for pain phenazopyridine (PYRIDIUM) 200 MG tablet Take 1 tablet by mouth 3 times daily as needed for Pain 6 tablet 0 02/07/2021 02/09/2021 Active Probiotic Product (PROBIOTIC ADVANCED PO) (2 sources) Probiotic Produc t (PROBIOTIC ADVANCED PO) Take by mouth 2 times daily 0 Active Completed/Discontinued Medications Medication Drug Class(es) Dates Sig (Normalized) Sig (Original) 100 ml acetaminophen 10 mg/ml injection (1 source) Start: 07-02-2021 End: 07-02-2021 acetaminophen (Ofirmev) injection 1,000 mg [id number] 200 actuat albuterol 0.09 mg/actuat metered dose inhaler (20 sources) beta2-Adrenergic Agonist Start: 06-04-2024 End: 07-04-2024 take 1 puff(s) by inhalation every four hours as needed Albuterol Sulfate Discontinued 1 PUFF INHALATION Every 4 hours 6.7 June 04, 2024 9:48am July 04, 2024 8:04am FreeTextSi puff as needed Inhalation every 4 hrs; Note: Source Status: Taking; Refills: 1; Provider: Anna Avilez Start: 06-04-2024 take 1 puff(s) by in halation every four hours as needed Albuterol Sulfate Active 1 PUFF INHALATION Every 4 hours 6.7 June 04, 2024 9:48am FreeTextSi puff as needed Inhalation every 4 hrs; Note: Source Status: Taking; Refills: 1; Provider: Anna Avilez Start: 04-15-2024 End: 02-21-2025 take 1 puff(s) by inhalation every four hours as needed Albuterol Sulfate 90 mcg/actuation HFA aerosol inhaler Discontinued 1 PUFF INHALATION Every 4 hours 6.7 July 04, 2024 8:04am February 21, 2025 10:11am FreeTextSi puff as needed Inhalation every 4 hrs; Note: Source Status: Taking; Refills: 1; Provider: Anna Avilez Start: 07-21-2023 take 1 puff(s) by in halation every four hours albuterol HFA 90 mcg/act inhaler inhale 1 puff every 4 hours if needed 07/21/2023 Active Start: 01-13-2021 take 2 puff(s) by in halation every four hours albuterol (Ventolin HFA) 90 mcg/actuation inhaler Inhale 2 puffs every 4 (four) hours if needed for shortness of breath. 54 g 3 01/13/2021 Active Start: 02-08-2019 End: 01-13-2021 take 2 puff(s) by inhalation every four hours as needed for wheezing albuterol sulfate HFA (VENTOLIN HFA) 108 (90 Base) MCG/ACT inhaler Inhale 2 puffs into the lungs every 4 hours as needed for Wheezing or Shortness of Breath 1 Inhaler 1 02/08/2019 Active Start: 02-08-2019 take 2 puff(s) by in halation every four hours as needed for wheezing albuterol sulfate HFA (VENTOLIN HFA) 108 (90 Base) MCG/ACT inhaler Inhale 2 puffs into the lungs every 4 hours as needed for Wheezing or Shortness of Breath 1 Inhaler 1 02/08/2019 Active take 1 puff(s) by in halation every four hours as needed Albuterol Sulfate HFA 108 (90 Base) MCG/ACT 1 puff as needed Inhalation every 4 hrs for 30 days Active take 1 puff(s) by in halation every four hours as needed Albuterol Sulfate HFA 108 (90 Base) MCG/ACT 1 puff as needed Inhalation every 4 hrs for 30 days Active take 1 puff(s) by in halation every four hours as needed Albuterol Sulfate HFA 108 (90 Base) MCG/ACT 1 puff as needed Inhalation every 4 hrs Active Albuterol Sulfate 90 mcg/actuation HFA aerosol inhaler (2 sources) Start: 06-04-2024 End: 07-04-2024 take 1 puff(s) by inhalation every four hours as needed Albuterol Sulfate 90 mcg/actuation HFA aerosol inhaler Discontinued 1 PUFF INHALATION Every 4 hours 6.7 June 04, 2024 9:48am July 04, 2024 8:04am FreeTextSi puff as needed Inhalation every 4 hrs; Note: Source Status: Taking; Refills: 1; Provider: Anna Avilez azelastine hydrochloride 0.137 mg/actuat metered dose nasal spray (9 sources) Histamine-1 Receptor Antagonist Start: 06-26-2020 End: 07-02-2021 azelastine (Astelin) 137 mcg (0.1 %) nasal spray 1-2 SPRAYS IN EACH NASAL PASSAGE TWO TIMES PER DAY 0 06/26/2020 07/02/2021 Discontinued (Stop Taking at Discharge) azithromycin 250 mg oral tablet (3 sources) Macrolide Antimicrobial Start: 04-28-2025 End: 07-07-2025 Azithromycin 250 mg tablet Discontinued 0 PO daily 6 April 28, 2025 12:00am July 07, 2025 9:09am Take 2 on day 1 and then take 1 for the next 4 days (days 2-5) Start: 03-08-2023 Azithromycin 2 50 MG as directed Orally 2 tabs po today, then 1 tab daily x 4 more days for 5 February, Active Budesonide / formoterol (8 sources) Corticosteroid, beta2-Adrenergic Agonist Start: 01-13-2021 End: 07-02-2021 take 2 puff(s) by mouth twice daily budesonide-formoteroL (Symbicort) 80-4.5 mcg/actuation inhaler Inhale 2 puffs 2 (two) times a day. Rinse mouth with water after use to reduce aftertaste and incidence of candidiasis. Do not swallow. 1 Inhaler 11 01/13/2021 07/02/2021 Discontinued (Discontinued by another clinician) Start: 01-13-2021 take 2 puff(s) by [facility] twice daily budesonide-formoteroL (Symbicort) 80-4.5 mcg/actuation inhaler Inhale 2 puffs 2 (two) times a day. Rinse mouth with water after use to reduce aftertaste and incidence of candidiasis. Do not swallow. 1 Inhaler 11 01/13/2021 Active calcium chloride 0.0014 meq/ml / potassium chloride 0.004 meq/ml / sodium chloride 0.103 meq/ml / sodium lactate 0.028 meq/ml injectable solution (1 source) Start: 07-02-2021 End: 07-02-2021 lactated Ringer's infusion cyclobenzaprine hydrochloride 5 mg oral tablet (20 sources) Muscle Relaxant Start: 07-30-2021 End: 07-09-2024 take 1 tablet by mouth once daily at bedtime as needed Cyclobenzaprine 5 mg tablet Discontinued 5 MG PO Daily April 15, 2024 12:00am June 13, 2024 10:18am FreeTextSi tablet at bedtime as needed Orally Once a day prn; Note: Source Status: Refill; Refills: 1; Qty: 30 Tablet; Provider: Anna Avilez Start: 02-07-2021 End: 02-17-2021 take 1 tablet by mouth three times daily as needed for muscle spasms cyclobenzaprine (FLEXERIL) 5 MG tablet Take 1 tablet by mouth 3 times daily as needed for Muscle spasms 30 tablet 0 02/07/2021 02/17/2021 Active Start: 12-26-2019 cyclobenzaprin e (Flexeril) 10 mg tablet As needed 0 12/26/2019 Active 1 ml dexamethasone phosphate 4 mg/ml injection (2 sources) Corticosteroid Start: 03-30-2021 End: 03-30-2021 dexamethasone (Decadron) 4 mg/mL oral liquid 10 mg Start: 03-30-2021 End: 03-30-2021 dexamethasone (Decadron) 4 m g/mL oral liquid 10 mg Ethinyl Estradiol / Levonorgestrel (14 sources) Progestin, Estrogen, Progestin-containing Intrauterine Device Start: 06-13-2019 End: 07-02-2021 take 1 tablet by mouth once daily levonorgestreL-ethinyl estrad (Jolessa) 0.15 mg-30 mcg (91) tablet Take 1 tablet by mouth 1 (one) time each day at the same time. 0 06/13/2019 07/02/2021 Discontinued (Discontinued by another clinician) Start: 06-13-2019 take 1 tablet by korina th once daily levonorgestreL-ethinyl estrad (Jolessa) 0.15 mg-30 mcg (91) tablet Take 1 tablet by mouth 1 (one) time each day at the same time. 0 06/13/2019 Active End: 12-04-2023 L norgest/e.estradiol-e.estr ad (Ashlyna) 0.15-0.03 &0.01 MG tablet tablet Not Available Oral for 91 Days 0 12/04/2023 Discontinued (Therapy completed) L norgest/e.estr adiol-e.estrad (Ashlyna) 0.15-0.03 &0.01 MG tablet tablet Not Available Oral for 91 Days 0 Active take 1 tablet by korina th every twenty-four hours Ashlyna 0.15-0.03 &0.01 MG 1 tablet Orally Once a day Active Fluticasone Propion-Salmeterol (20 sources) Corticosteroid, beta2-Adrenergic Agonist Start: 02-21-2025 End: 07-07-2025 take 1 puff(s) by inhalation twice daily Fluticasone Propion-Salmeterol (Advair Hfa) 45-21 mcg/actuation HFA aerosol inhaler Discontinued 2 PUFF INHALATION Twice daily February 21, 2025 12:00am July 07, 2025 9:09am Start: 02-21-2025 take 1 puff(s) by in halation twice daily Fluticasone Propion-Salmeterol (Advair Hfa) 45-21 mcg/actuation HFA aerosol inhaler Active 2 PUFF INHALATION Twice daily February 21, 2025 12:00am Complies with drug therapy Start: 02-21-2025 take 1 puff(s) by in halation twice daily Fluticasone Propion-Salmeterol (Advair Hfa) 45-21 mcg/actuation HFA aerosol inhaler Active 2 PUFF INHALATION Twice daily February 21, 2025 12:00am Start: 04-15-2024 End: 02-21-2025 take 2 puff(s) by inhalation twice daily Fluticasone Propion-Salmeterol (Advair Hfa) 115-21 mcg/actuation HFA aerosol inhaler Discontinued 2 PUFF INHALATION Twice daily April 15, 2024 12:00am February 21, 2025 10:06am [employer] puffs Inhalation Twice a day; Note: Source Status: Start; Refills: 2; Provider: Anna Avilez Start: 04-15-2024 take 2 puff(s) by in halation twice daily Fluticasone Propion-Salmeterol (Advair Hfa) 115-21 mcg/actuation HFA aerosol inhaler Active 2 PUFF INHALATION Twice daily April 15, 2024 12:00am [employer] puffs Inhalation Twice a day; Note: Source Status: Start; Refills: 2; Provider: Anna Avilez Start: 10-25-2023 End: 12-04-2023 take 2 puff(s) by inhalation in the morning Advair HFA 115-21 MCG/ACT inhaler Inhale 2 puffs in the morning and 2 puffs before bedtime. 0 10/25/2023 12/04/2023 Discontinued (Ineffective) Start: 01-13-2021 End: 01-13-2022 take 2 puff(s) by mouth twice daily fluticasone propion-salmeteroL (Advair HFA) 115-21 mcg/actuation inhaler Inhale 2 puffs 2 (two) times a day. Rinse mouth with water after use to reduce aftertaste and incidence of candidiasis. Do not swallow. 36 g 3 01/13/2021 01/13/2022 Active Start: 06-13-2019 End: 07-02-2021 take 2 puff(s) by inhalation twice daily fluticasone propion-salmeteroL (Advair HFA) 45-21 mcg/actuation inhaler Inhale 2 puffs 2 (two) times a day. Use with spacer 0 06/13/2019 07/02/2021 Discontinued (Duplicate order) take 2 puff(s) by in halation twice daily Advair HFA 115-21 MCG/ACT 2 puffs Inhalation Twice a day for 30 days Active HYDROmorphone (1 source) Opioid Agonist Start: 07-02-2021 End: 07-02-2021 HYDROmorphone (Dilaudid) injection 0.5 mg 1 ml ketorolac tromethamine 30 mg/ml injection (1 source) Nonsteroidal Anti-inflammatory Drug, Cyclooxygenase Inhibitor Start: 06-06-2018 End: 06-06-2018 ketorolac (TORADOL) injection 15 mg nebulizer and compressor device (19 sources) Start: 12-31-2020 End: 07-02-2021 nebulizer and compressor device Indications: Moderate persistent asthma, unspecified whether complicated 1 Device every 4 (four) hours if needed (Use as directed by physician). DX: J45.909 Asthma With kit and supplies for lifetime 1 each 0 12/31/2020 07/02/2021 Discontinued (Duplicate order) Start: 12-31-2020 nebulizer and compressor device Indications: Moderate persistent asthma, unspecified whether complicated 1 Device every 4 (four) hours if needed (Use as directed by physician). DX: J45.909 Asthma With kit and supplies for lifetime 1 each 0 12/31/2020 Active Start: 12-23-2020 nebulizer and compressor device Indications: Moderate persistent asthma, unspecified whether complicated Take 1 Device by nebulization every 4 (four) hours. With Kit and Supplies for lifetime. To use with nebulizer medication every 4 hours as directed. DX: J45.50 Asthma 1 each 0 12/23/2020 Active 2 ml ondansetron 2 mg/ml injection (1 source) Serotonin-3 Receptor Antagonist Start: 06-06-2018 End: 06-06-2018 ondansetron (ZOFRAN) injection 4 mg oxymetazoline hydrochloride 0.5 mg/ml nasal spray (1 source) Start: 07-02-2021 End: 07-02-2021 oxymetazoline (Afrin) 0.05 % nasal spray 3 spray predniSONE 10 mg oral tablet (7 sources) Start: 04-15-2024 End: 06-13-2024 take 1 tablet by mouth once daily Prednisone 10 mg tablet Discontinued 10 MG PO Daily April 15, 2024 12:00am June 13, 2024 9:53am sodium chloride (2 sources) Start: 02-14-2021 End: 02-14-2021 sodium chloride (PF) (NS) flush 5 mL Start: 06-06-2018 End: 06-06-2018 sodium chloride (PF) (NS) fl ush 5 mL triamcinolone acetonide 1 mg/ml topical cream (9 sources) Corticosteroid Start: 12-26-2019 End: 07-02-2021 triamcinolone (Kenalog) 0.1 % cream Apply a thin layer to the affected areas by topical route 2 times per day as needed 0 12/26/2019 07/02/2021 Discontinued (Discontinued by another clinician) Problems Active Problems Problem Classification Problem Date Documented Date Episodic/Chronic Abdominal pain (20 sources) Right flank pain; Translations: [Flank pain] Onset: 06-02-2022 Episodic Allergic reactions (19 sources) Urticaria; Translations: [Urticaria, unspecified] Onset: 06-27-2019 12-15-2020 Episodic Anxiety disorders (20 sources) Anxiety; Translations: [Anxiety disorder, unspecified] Onset: 07-02-2021 10-12-2014 Chronic Asthma (20 sources) Asthma; Translations: [Unspecified asthma, uncomplicated] Onset: 06-13-2019 02-08-2019 Chronic Attention-deficit, conduct, and disruptive behavior disorders (4 sources) Attention deficit hyperactivity disorder; Translations: [Attention-deficit hyperactivity disorder, unspecified type] Onset: 07-02-2021 Chronic Chronic obstructive pulmonary disease and bronchiectasis (1 source) Bronchitis, not specified as acute or chronic Episodic Conditions associated with dizziness or vertigo (6 sources) Vertigo; Translations: [Dizziness and giddiness] 07-09-2024 Episodic Esophageal disorders (12 sources) Gastroesophageal reflux disease; Translations: [Gastro-esophageal reflux disease without esophagitis] Onset: 06-13-2019 12-15-2020 Chronic Genitourinary symptoms and ill-defined conditions (5 sources) Dysuria; Translations: [Dysuria] Onset: 12-31-2024 12-31-2024 Episodic Headache; including migraine (3 sources) Headache; Translations: [Headache, unspecified] Episodic Headache; including migraine (3 sources) Headache; including migraine; Translations: [HEADACHE UNSPECIFIED] Onset: 10-26-2022 Immunizations and screening for infectious disease (1 source) Encounter for immunization Episodic Lymphadenitis (1 source) Cervical lymphadenopathy; Translations: [Localized enlarged lymph nodes] Episodic Malaise and fatigue (7 sources) Other fatigue; Translations: [Fatigue] Onset: 04-14-2022 07-09-2024 Episodic Menstrual disorders (19 sources) Polymenorrhea; Translations: [Excessive and frequent menstruation with regular cycle] Chronic Mood disorders (4 sources) Depressive disorder; Translations: [Major depressive disorder, single episode, unspecified] Onset: 07-02-2021 Chronic Noninfectious gastroenteritis (3 sources) Gastroenteritis; Translations: [Noninfective gastroenteritis and colitis, unspecified] 03-11-2025 Episodic Nonmalignant breast conditions (14 sources) Lump in right breast; Translations: [Unspecified lump in the right breast, unspecified quadrant] Onset: 08-19-2022 Episodic Nonspecific chest pain (6 sources) Other chest pain; Translations: [Chest pain] Episodic Nutritional deficiencies (20 sources) Vitamin deficiency; Translations: [Vitamin deficiency, unspecified] Onset: 04-12-2022 Episodic Other circulatory disease (3 sources) Elevated blood-pressure reading without diagnosis of hypertension; Translations: [Elevated blood-pressure reading, without diagnosis of hypertension] Episodic Other connective tissue disease (8 sources) Recurrent falls ; Translations: [Repeated falls] 04-24-2024 Episodic Other connective tissue disease (5 sources) Repeated falls; Translations: [History of fall] Episodic Other female genital disorders (4 sources) History of endometriosis; Translations: [Personal history of other diseases of the female genital tract] 08-20-2024 Episodic Other inflammatory condition of skin (6 sources) Perioral dermatitis; Translations: [Perioral dermatitis] 06-13-2024 Chronic Other inflammatory condition of skin (2 sources) Perioral dermatitis; Translations: [Rosacea] 06-13-2024 Chronic Other nervous system disorders (4 sources) Chronic pain; Translations: [Other chronic pain] Onset: 07-02-2021 Chronic Other nervous system disorders (10 sources) Carpal tunnel syndrome; Translations: [Carpal tunnel syndrome, bilateral upper limbs] Chronic Other nervous system disorders (5 sources) Carpal tunnel syndrome, bilateral upper limbs; Translations: [CARPAL TUNNEL SYND DILIP UPPER LIMBS] Onset: 04-29-2022 Chronic Other nervous system disorders (1 source) Postoperative pain ; Translations: [Other acute postprocedural pain] Episodic Other nutritional; endocrine; and metabolic disorders (6 sources) Obese class I; Translations: [Body mass index (BMI) 33.0-33.9, adult] Chronic Other screening for suspected conditions (not mental disorders or infectious disease) (14 sources) Patient encounter status; Translations: [Encounter for screening for malignant neoplasm of skin] 06-13-2024 Episodic Other skin disorders (8 sources) Eruption; Translations: [Rash and other nonspecific skin eruption] Episodic Other skin disorders (3 sources) Rash and other nonspecific skin eruption; Translations: [Facial rash] Onset: 04-14-2022 Episodic Other upper respiratory disease (20 sources) Allergic rhinitis; Translations: [Allergic rhinitis, unspecified] Onset: 07-15-2019 02-08-2019 Chronic Other upper respiratory disease (2 sources) Allergic rhinitis, unspecified; Translations: [Allergic rhinitis, cause unspecified] 04-15-2024 Chronic Other upper respiratory disease (8 sources) Deviated nasal septum; Translations: [Deviated nasal septum] Onset: 05-31-2021 Resolved: 07-07-2021 Episodic Other upper respiratory disease (6 sources) Hypertrophy of nasal turbinates; Translations: [Hypertrophy of nasal turbinates] Onset: 05-31-2021 Resolved: 07-07-2021 Episodic Other upper respiratory disease (4 sources) 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; Translations: [Other specified disorders of nose and nasal sinuses] Onset: 06-16-2021 Episodic Other upper respiratory infections (12 sources) Chronic maxillary sinusitis; Translations: [Chronic maxillary sinusitis] Onset: 04-28-2021 Resolved: 09-04-2021 Chronic Other upper respiratory infections (16 sources) Viral upper respiratory tract infection; Translations: [Acute pansinusitis] Episodic Otitis media and related conditions (1 source) Acute serous otitis media, bilateral Episodic Spondylosis; intervertebral disc disorders; other back problems (6 sources) Acute low back pain; Translations: [Low back pain] Episodic Thyroid disorders (10 sources) Thyroid dysfunction; Translations: [Disorder of thyroid, unspecified] Episodic Unclassified (7 sources) Chronic daily headache; Translations: [Chronic daily headache] Unclassified (4 sources) LOW BACK PAIN, UNSPECIFIED; Translations: [LOW BACK PAIN, UNSPECIFIED] Onset: 04-14-2022 Urinary tract infections (1 source) Acute urinary tract infection; Translations: [Urinary tract infection, site not specified] Episodic Past or Other Problems Problem Classification Problem Date Documented Da te Episodic/Chronic Acute and unspecified renal failure (1 source) Acute kidney failure, unspecified; Translations: [ACUTE KIDNEY FAILURE UNSPECIFIED] Onset: 04-14-2022 Episodic E Codes: Fall (1 source) Fall on same level from slipping, tripping and stumbling with subsequent striking against unspecified object, initial encounter; Translations: [FALL SAME LVL SLIP STRK UNS OBJ INT] Onset: 10-27-2022 Episodic Other connective tissue disease (1 source) Pain in right leg; Translations: [PAIN IN RIGHT LEG] Onset: 05-02-2022 Episodic Other connective tissue disease (1 source) Pain in left leg; Translations: [PAIN IN LEFT LEG] Onset: 05-02-2022 Episodic Other injuries and conditions due to external causes (1 source) Other specified injuries of head, initial encounter; Translations: [OTH SPEC INJURIES HEAD INITIAL ENC] Onset: 10-27-2022 Episodic Other upper respiratory disease (11 sources) Chronic hoarseness; Translations: [Dysphonia] Onset: 01-09-2020 12-15-2020 Episodic Sprains and strains (1 source) Unspecified sprain of right wrist, initial encounter; Translations: [UNSPECIFIED SPRAIN RT WRIST INITIAL] Onset: 10-27-2022 Episodic Unclassified (1 source) LOW BACK PAIN, UNSPECIFIED; Translations: [LOW BACK PAIN, UNSPECIFIED] Onset: 04-29-2022 Viral infection (1 source) Disease caused by 2019-nCoV; Translations: [COVID-19] Episodic Results Test Name Value Interpretation Reference Range Facility No Panel InformationOrdered By: Griselda Mcrae on 04-28-2025 Quick Strep (POC) [facility] CBC with Auto Differentialon 03-01-2025 Basophils (Bld) [#/Vol] [facility] Basophils/100 WBC (Bld) 0 % 0 - 2 % [facility] Eosinophils (Bld) [#/Vol] [facility] Eosinophils/100 WBC (Bld) 0 % Low 1 - 4 % [facility] Erythrocyte distribution width (RBC) [Ratio] 12.3 % 11.8 - 14.4 % [facility] Hematocrit (Bld) [Volume fraction] 38.8 % 36.3 - 47.1 % [facility] Hemoglobin (Bld) [Mass/Vol] 13.4 g/dL 11.9 - 15.1 g/dL [facility] Immature granulocytes (Bld) [#/Vol] 0.03 10*3/uL [facility] Immature granulocytes/100 WBC (Bld) 0 % 0 [facility] Interpretation and review of laboratory results Abnormal [facility] Lymphocytes/100 WBC (Bld) 7 % Low 24 - 43 % [facility] Lymphocytes/100 WBC (Bld) 0.52 % Low [facility] MCH (RBC) [Entitic mass] 30.4 pg 25.2 - 33.5 pg [facility] MCHC (RBC) [Mass/Vol] 34.5 g/dL High 25.2 - 33.5 g/dL [facility] MCV (RBC) [Entitic vol] 88 fL 82.6 - 102.9 fL [facility] Monocytes/100 WBC (Bld) 13 % High 3 - 12 % [facility] Monocytes/100 WBC (Bld) 0.9 % [facility] Neutrophils/100 WBC (Bld) 80 % High 36 - 65 % [facility] Nucleated RBC/100 WBC (Bld) [Ratio] 0 % 0.0 per 100 WBC [facility] Platelet mean volume (Bld) [Entitic vol] 9.5 fL 8.1 - 13.5 fL [facility] Platelets (Bld) [#/Vol] 243 10*3/uL [facility] RBC (Bld) [#/Vol] 4.41 10*6/uL 3.95 - 5.1 1 m/uL [facility] Segmented neutrophils/100 WBC (Bld) 5.71 % [facility] WBC other (Bld) [#/Vol] 7.2 [facility] CBC with Diffon 03-01-2025 Abs. Basophil <0.03 Normal 0.00-0.20 [facility] Comment on above: Performed By: #### C DP, HCG, LIP, CP #### [facility] [address] [place] [address] Nurse Receptionist: Mark Vera MD Abs. Eosinophil <0.03 Normal 0.00-0.44 [facility] Comment on above: Performed By: #### C DP, HCG, LIP, CP #### [facility] [address] [place] [address] Nurse Receptionist: Mark Vera MD Abs.Imm.Granulocyte 0.03 k/uL Normal 0.00-0.30 [facility] Comment on above: Performed By: #### C DP, HCG, LIP, CP #### [facility] [address] [place] [address] Nurse Receptionist: Mark Vera MD Abs.Neutrophil (Seg) 5.71 k/uL Normal 1.50-8.10 [facility] Comment on above: Performed By: #### C DP, HCG, LIP, CP #### [facility] [address] [place] [address] Nurse Receptionist: Mark Vera MD Basophils/100 WBC (Bld) 0 % Normal 0-2 [facility] Comment on above: Performed By: #### C DP, HCG, LIP, CP #### [facility] [address] [place] [address] Nurse Receptionist: Mark Vera MD Eosinophils/100 WBC (Bld) 0 % Low 1-4 [facility] Comment on above: Performed By: #### C DP, HCG, LIP, CP #### [facility] [address] [place] [address] Nurse Receptionist: Mark Vera MD Erythrocyte distribution width (RBC) [Ratio] 12.3 % Normal 11.8-14.4 [facility] Comment on above: Performed By: #### C DP, HCG, LIP, CP #### [facility] [address] [place] [address] Nurse Receptionist: Mark Vera MD Hematocrit (Bld) [Volume fraction] 38.8 % Normal 36.3-47.1 [facility] Comment on above: Performed By: #### C DP, HCG, LIP, CP #### [facility] [address] [place] [address] Nurse Receptionist: Mark Vera MD Hemoglobin (Bld) [Mass/Vol] 13.4 g/dL Normal 11.9-15.1 [facility] Comment on above: Performed By: #### C DP, HCG, LIP, CP #### [facility] [address] [place] [address] Nurse Receptionist: Mark Vera MD Immature granulocytes/100 WBC (Bld) 0 % Normal 0 [facility] Comment on above: Performed By: #### C DP, HCG, LIP, CP #### [facility] [address] [place] [address] Nurse Receptionist: Mark Vera MD Lymphocytes (Bld) [#/Vol] 0.52 10*3/uL Low 1.10-3.70 [facility] Comment on above: Performed By: #### C DP, HCG, LIP, CP #### [facility] [address] [place] [address] Nurse Receptionist: Mark Vera MD Lymphocytes/100 WBC (Bld) 7 % Low 24-43 [facility] Comment on above: Performed By: #### C DP, HCG, LIP, CP #### [facility] [address] [place] [address] Nurse Receptionist: Mark Vera MD MCH (RBC) [Entitic mass] 30.4 pg Normal 25.2-33.5 [facility] Comment on above: Performed By: #### C DP, HCG, LIP, CP #### [facility] [address] [place] [address] Nurse Receptionist: Mark Vera MD MCHC (RBC) [Mass/Vol] 34.5 g/dL High 25.2-33.5 [facility] Comment on above: Performed By: #### C DP, HCG, LIP, CP #### [facility] [address] [place] [address] Nurse Receptionist: Mark Vera MD MCV (RBC) [Entitic vol] 88.0 fL Normal 82.6-102.9 [facility] Comment on above: Performed By: #### C DP, HCG, LIP, CP #### [facility] [address] [place] [address] Nurse Receptionist: Mark Vera MD Monocytes (Bld) [#/Vol] 0.90 10*3/uL Normal 0.10-1.20 [facility] Comment on above: Performed By: #### C DP, HCG, LIP, CP #### [facility] [address] [place] [address] Nurse Receptionist: Mark Vera MD Monocytes/100 WBC (Bld) 13 % High 3-12 [facility] Comment on above: Performed By: #### C DP, HCG, LIP, CP #### [facility] [address] [place] [address] Nurse Receptionist: Mark Vera MD Neutrophil (Seg) 80 % High 36-65 [facility] Comment on above: Performed By: #### C DP, HCG, LIP, CP #### [facility] [address] [place] [address] Nurse Receptionist: Mark Vera MD NRBC Automated 0.0 per 100 WBC Normal 0.0 [facility] Comment on above: Performed By: #### C DP, HCG, LIP, CP #### [facility] [address] [place] [address] Nurse Receptionist: Mark Vera MD Platelet mean volume (Bld) [Entitic vol] 9.5 fL Normal 8.1-13.5 [facility] Comment on above: Performed By: #### C DP, HCG, LIP, CP #### [facility] [address] [place] [address] Nurse Receptionist: Mark Vera MD Platelets (Bld) [#/Vol] 243 10*3/uL Normal 138-453 [facility] Comment on above: Performed By: #### C DP, HCG, LIP, CP #### [facility] [address] [place] [address] Nurse Receptionist: Mark Vera MD RBC (Bld) [#/Vol] 4.41 10*6/uL Normal 3.95-5.11 [facility] Comment on above: Performed By: #### C DP, HCG, LIP, CP #### [facility] [address] [place] [address] Nurse Receptionist: Mark Vera MD WBC (Bld) [#/Vol] 7.2 10*3/uL Normal 3.5-11.3 [facility] Comment on above: Performed By: #### C DP, HCG, LIP, CP #### [facility] [address] [place] [address] Nurse Receptionist: Mark Vera MD [facility] 03-01-2025 Albumin [Mass/Vol] 4.1 g/dL 3.5 - 5.2 g/dL [facility] Albumin/Globulin [Mass ratio] 1.7 {ratio} 1.0 - 2.5 [facility] ALP [Catalytic activity/Vol] 81 U/L 35 - 104 U/L [facility] ALT [Catalytic activity/Vol] 17 U/L 10 - 35 U/L [facility] Anion gap [Moles/Vol] 11 mmol/L 9 - 16 mmol/L [facility] AST [Catalytic activity/Vol] 23 U/L 10 - 35 U/L [facility] Bilirubin [Mass/Vol] 0.3 mg/dL 0.0 - 1 .2 mg/dL [facility] Calcium [Mass/Vol] 8.8 mg/dL 8.6 - 10. 4 mg/dL [facility] Chloride [Moles/Vol] 102 mmol/L 98 - 10 7 mmol/L [facility] CO2 [Moles/Vol] 24 mmol/L 20 - 31 mmol/L [facility] Creatinine [Mass/Vol] 0.8 mg/dL 0.6 - 0.9 mg/dL [facility] Est, Glomary Filt Rate - PINF [facility] Comment on above: These results are not intended for use in patients <18 years of age. eGFR results are calculated without a race factor using the 2020 CKD-EPI equation. Careful clinical correlation is recommended, particularly when comparing to results calculated using previous equations. The CKD-EPI equation is less accurate in patients with extremes of muscle mass, extra-renal metabolism of creatine, excessive creatine ingestion, or following therapy that affects renal tubular secretion. Glucose [Mass/Vol] 84 mg/dL 74 - 99 mg/dL [facility] Interpretation and review of laboratory results Abnormal [facility] Potassium [Moles/Vol] 3.5 mmol/L Low 3.7 - 5.3 mmol/L [facility] Protein [Mass/Vol] 6.5 g/dL Low 6.6 - 8.7 g/dL [facility] Sodium [Moles/Vol] 137 mmol/L 136 - 145 mmol/L [facility] Urea nitrogen [Mass/Vol] 12 mg/dL 6 - 20 mg/dL [facility] Urea nitrogen/Creatinine [Mass ratio] 15 mg/mg 9 - 20 [facility] CT ABDOMEN PELVIS WO CONTRAS Ton 05-10-2025 CT ABDOMEN PELVIS WO CONTRAST EXAMINATION: CT OF THE ABDOMEN AND PELVIS WITHOUT CONTRAST 03/01/2025 3:03 pm TECHNIQUE: CT of the abdomen and pelvis was performed without the administration of intravenous contrast. Multiplanar reformatted images are provided for review. Automated exposure control, iterative reconstruction, and/or weight based adjustment of the mA/kV was utilized to reduce the radiation dose to as low as reasonably achievable. COMPARISON: None. HISTORY: ORDERING SYSTEM PROVIDED HISTORY: right flank pain TECHNOLOGIST PROVIDED HISTORY: right flank pain Decision Support Exception - unselect if not a suspected or confirmed emergency medical condition->Emergenc y Medical Condition (MA) Reason for Exam: right flank pain FINDINGS: Lower Chest: There is mild dependent atelectasis in the lower lobes. There is no pleural effusion. Organs: The liver and gallbladder appear normal. There is no biliary dilatation. The spleen, adrenal glands and pancreas appear normal. The kidneys are normal in size and location. There is no ureteral stone or hydronephrosis. GI/Bowel: There is no bowel dilatation or bowel wall thickening. The appendix appears normal and is coiled upon itself posterior to the cecum. The stomach appears normal. Pelvis: The bladder is nondistended and otherwise unremarkable the uterus appears normal. There is no free fluid. Peritoneum/Retroper itoneum: No evidence of lymphadenopathy. Aorta is normal in caliber. No fat stranding, free fluid, free air or focal fluid collection is identified. Bones/Soft Tissues: No fracture or suspicious bone lesion is identified. IMPRESSION: No ureteral stone or other acute finding in the abdomen or pelvis. Interpreted by: James Dejesus MD Signed by: James Dejesus MD 03/01/25 Final result Normal [facility] CT Abdomen and Pelvis WO con traston 03-01-2025 No ureteral stone or other acute finding in the abdomen or pelvis. [facility] RIS CONSOLIDATED EXAMINATION: CT OF THE ABDOMEN AND PELVIS WITHOUT CONTRAST 03/01/2025 3:03 pm TECHNIQUE: CT of the abdomen and pelvis was performed without the administration of intravenous contrast. Multiplanar reformatted images are provided for review. Automated exposure control, iterative reconstruction, and/or weight based adjustment of the mA/kV was utilized to reduce the radiation dose to as low as reasonably achievable. COMPARISON: None. HISTORY: ORDERING SYSTEM PROVIDED HISTORY: right flank pain TECHNOLOGIST PROVIDED HISTORY: right flank pain Decision Support Exception - unselect if not a suspected or confirmed emergency medical condition->Emergenc y Medical Condition (MA) Reason for Exam: right flank pain FINDINGS: Lower Chest: There is mild dependent atelectasis in the lower lobes. There is no pleural effusion. Organs: The liver and gallbladder appear normal. There is no biliary dilatation. The spleen, adrenal glands and pancreas appear normal. The kidneys are normal in size and location. There is no ureteral stone or hydronephrosis. GI/Bowel: There is no bowel dilatation or bowel wall thickening. The appendix appears normal and is coiled upon itself posterior to the cecum. The stomach appears normal. Pelvis: The bladder is nondistended and otherwise unremarkable the uterus appears normal. There is no free fluid. Peritoneum/Retroper itoneum: No evidence of lymphadenopathy. Aorta is normal in caliber. No fat stranding, free fluid, free air or focal fluid collection is identified. Bones/Soft Tissues: No fracture or suspicious bone lesion is identified. PN RIS CONSOLIDATED James Dejesus MD - 03/01/2025 EXAMINATION: CT OF THE ABDOMEN AND PELVIS WITHOUT CONTRAST 03/01/2025 3:03 pm TECHNIQUE: CT of the abdomen and pelvis was performed without the administration of intravenous contrast. Multiplanar reformatted images are provided for review. Automated exposure control, iterative reconstruction, and/or weight based adjustment of the mA/kV was utilized to reduce the radiation dose to as low as reasonably achievable. COMPARISON: None. HISTORY: ORDERING SYSTEM PROVIDED HISTORY: right flank pain TECHNOLOGIST PROVIDED HISTORY: right flank pain Decision Support Exception - unselect if not a suspected or confirmed emergency medical condition->Emergenc y Medical Condition (MA) Reason for Exam: right flank pain FINDINGS: Lower Chest: There is mild dependent atelectasis in the lower lobes. There is no pleural effusion. Organs: The liver and gallbladder appear normal. There is no biliary dilatation. The spleen, adrenal glands and pancreas appear normal. The kidneys are normal in size and location. There is no ureteral stone or hydronephrosis. GI/Bowel: There is no bowel dilatation or bowel wall thickening. The appendix appears normal and is coiled upon itself posterior to the cecum. The stomach appears normal. Pelvis: The bladder is nondistended and otherwise unremarkable the uterus appears normal. There is no free fluid. Peritoneum/Retroper itoneum: No evidence of lymphadenopathy. Aorta is normal in caliber. No fat stranding, free fluid, free air or focal fluid collection is identified. Bones/Soft Tissues: No fracture or suspicious bone lesion is identified. IMPRESSION: No ureteral stone or other acute finding in the abdomen or pelvis. [facility] Radiology Study observation (narrative) [facility] CT Abdomen and Pelvis WO con trastOrdered By: James Dejesus on 03-01-2025 [facility] Work Phone: Comp Metabolic Profon 2024 Albumin [Mass/Vol] 4.1 g/dL Normal 3.5-5.2 [facility] Comment on above: Performed By: #### C DP, HCG, LIP, CP #### [facility] [address] [place] [id number] Nurse Receptionist: Mark Vera MD Albumin/Glob Ratio 1.7 Normal 1.0-2.5 [facility] Comment on above: Performed By: #### C DP, HCG, LIP, CP #### [facility] [address] [place] [address] Nurse Receptionist: Mark Vera MD Alkaline Phos 81 U/L Normal 35-104 [facility] Comment on above: Performed By: #### C DP, HCG, LIP, CP #### [facility] [address] [place] [phone] Nurse Receptionist: Mark Vera MD ALT [Catalytic activity/Vol] 17 U/L Normal 10-35 [facility] Comment on above: Performed By: #### C DP, HCG, LIP, CP #### [facility] [address] [place] [phone] Nurse Receptionist: Mark Vera MD Anion gap [Moles/Vol] 11 mmol/L Normal 9-16 [facility] Comment on above: Performed By: #### C DP, HCG, LIP, CP #### [facility] [address] [place] [phone] Nurse Receptionist: Mark Vera MD AST [Catalytic activity/Vol] 23 U/L Normal 10-35 [facility] Comment on above: Performed By: #### C DP, HCG, LIP, CP #### [facility] [address] [place] [address] Nurse Receptionist: Mark Vera MD Bilirubin [Mass/Vol] 0.3 mg/dL Normal 0.0-1.2 [facility] Comment on above: Performed By: #### C DP, HCG, LIP, CP #### [facility] [address] [place] [phone] Nurse Receptionist: Mark Vera MD BUN/CRE Ratio 15 Normal 9-20 [facility] Comment on above: Performed By: #### C DP, HCG, LIP, CP #### [facility] [address] [place] [phone] Nurse Receptionist: Mark Vera MD Calcium [Mass/Vol] 8.8 mg/dL Normal 8.6-10.4 [facility] Comment on above: Performed By: #### C DP, HCG, LIP, CP #### [facility] [address] [place] [phone] Nurse Receptionist: Mark Vera MD Chloride [Moles/Vol] 102 mmol/L Normal 98-107 [facility] Comment on above: Performed By: #### C DP, HCG, LIP, CP #### [facility] [address] [place] [phone] Nurse Receptionist: Mark Vera MD CO2 [Moles/Vol] 24 mmol/L Normal 20-31 [facility] Comment on above: Performed By: #### C DP, HCG, LIP, CP #### [facility] [address] [place] [phone] Nurse Receptionist: Mark Vera MD Creatinine [Mass/Vol] 0.8 mg/dL Normal 0.6-0.9 [facility] Comment on above: Performed By: #### C DP, HCG, LIP, CP #### [facility] [address] [place] [address] Nurse Receptionist: Mark Vera MD GFR/1.73 sq M.predicted among non-blacks MDRD (S/P/Bld) [Vol rate/Area] mL/min/{1.73_m2} Normal >60 [facility] Comment on above: Result Comment: These results are not intended for use in patients <18 years of age. eGFR results are calculated without a race factor using the 2020 CKD-EPI equation. Careful clinical correlation is recommended, particularly when comparing to results calculated using previous equations. The CKD-EPI equation is less accurate in patients with extremes of muscle mass, extra-renal metabolism of creatine, excessive creatine ingestion, or following therapy that affects renal tubular secretion. Performed By: #### C DP, HCG, LIP, CP #### [facility] [address] [place] [address] Nurse Receptionist: Mark Vera MD Glucose [Mass/Vol] 84 mg/dL Normal 74-99 [facility] Comment on above: Performed By: #### C DP, HCG, LIP, CP #### [facility] [address] [place] [address] Nurse Receptionist: Mark Vera MD Potassium [Moles/Vol] 3.5 mmol/L Low 3.7-5.3 [facility] Comment on above: Performed By: #### C DP, HCG, LIP, CP #### [facility] [address] [place] [address] Nurse Receptionist: Mark Vera MD Protein [Mass/Vol] 6.5 g/dL Low 6.6-8.7 [facility] Comment on above: Performed By: #### C DP, HCG, LIP, CP #### [facility] [address] [place] [address] Nurse Receptionist: Mark Vera MD Sodium [Moles/Vol] 137 mmol/L Normal 136-145 [facility] Comment on above: Performed By: #### C DP, HCG, LIP, CP #### [facility] [address] [place] [address] Nurse Receptionist: Mark Vera MD Urea nitrogen [Mass/Vol] 12 mg/dL Normal 6-20 [facility] Comment on above: Performed By: #### C DP, HCG, LIP, CP #### [facility] [address] [place] [id number] Nurse Receptionist: Mark Vera MD HCG Qualitative, Serumon HCG ( test) Ql Negative NEGATIVE [facility] Comment on above: Specimens with hCG l evels near the threshold of the test (25 mIU/mL) may give a negative or indeterminate result. In such cases, another test should be performed with a new specimen in 48-72 hours. If early is suspected clinically in this setting, correlation with quantitative serum b-hCG level is suggested. [facility] HCG Screen, Bloodon 03-01-20 25 HCG Screen, Blood Negative Normal NEG [facility] Comment on above: Result Comment: Spec imens with hCG levels near the threshold of the test (25 mIU/mL) may give a negative or indeterminate result. In such cases, another test should be performed with a new specimen in 48-72 hours. If early is suspected clinically in this setting, correlation with quantitative serum b-hCG level is suggested. Performed By: #### C DP, HCG, LIP, CP #### [facility] [address] [place] [phone] Nurse Receptionist: Mark Vera MD Lipaseon 03-01-2025 Lipase [Catalytic activity/Vol] 21 U/L 13 - 60 U/L [facility] Lipase [Catalytic activity/Vol] 21 U/L Normal 13-60 [facility] Comment on above: Performed By: #### C DP, HCG, LIP, CP #### [facility] [address] [place] [address] Nurse Receptionist: Mark Vera MD Microscopic Urinalysison Bacteria LM Ql (Urine sed) FEW Abnormal None [facility] Character (U) Utilizing a urinalysis as the only screening method to exclude a potential uropathogen can be unreliable in many patient populations. Rapid screening tests are less sensitive than culture and if UTI is a clinical possibility, culture should be considered despite a negative urinalysis. Abnormal NOT REQ. [facility] Epithelial cells LM.HPF (Urine sed) [#/Area] 0 TO 2 [facility] Interpretation and review of laboratory results Abnormal [facility] RBC LM.HPF (Urine sed) [#/Area] 2 TO 5 [facility] WBC LM.HPF (Urine sed) [#/Area] 0 TO 2 [facility] No Panel Informationon 03-01 [facility] Urinalysison 03-01-2025 Bilirubin Ql (U) Negative NEGATIVE [facility] Clarity (U) Clear Clear [facility] Color (U) Yellow Yellow [facility] Glucose Test strip (U) [Mass/Vol] Negative NEGATIVE mg/dL [facility] Hemoglobin Auto test strip Ql (U) 2+ Abnormal NEGATIVE [facility] Interpretation and review of laboratory results Abnormal [facility] Ketones (U) [Mass/Vol] Negative NEGAT MARGARET mg/dL [facility] Leukocyte esterase Test strip Ql (U) 1+ Abnormal NEGATIVE [facility] Nitrite Ql (U) Negative NEGATIVE [facility] pH (U) 6.5 [pH] High 5.0 - 6.0 [facility] Protein (U) [Mass/Vol] Negative NEGAT MARGARET mg/dL [facility] Specific gravity (U) [Rel density] 1.02 1.010 - 1.025 [facility] Urobilinogen Qn (U) Normal 0.0 - 1. 0 EU/dL [facility] Urinalysis, Routineon 2024 Bilirubin, SemiQt,Ur Negative Normal NEG [facility] Comment on above: Performed By: #### U RAAD UA #### [facility] [address] [place] [address], [place] [address] Nurse Receptionist: Mark Vera MD Blood, Urine 2+ Abnormal NEG [facility] Comment on above: Performed By: #### U RAAD UA #### [facility] [address] [place] [address], [place] [address] Nurse Receptionist: Mark Vera MD Clarity (U) Clear Normal CLEAR [facility] Comment on above: Performed By: #### U RAAD UA #### [facility] [address] [place] [address], [place] [address] Nurse Receptionist: Mark Vera MD Color (U) Yellow Normal YEL [facility] Comment on above: Performed By: #### U RAAD UA #### [facility] [address] [place] [address], [place] [address] Nurse Receptionist: Mark Vera MD Glucose Ql (U) Negative Normal [facility] Comment on above: Performed By: #### U RAAD, UA #### [facility] [address] [place] [address], [place] [address] Nurse Receptionist: Mark Vera MD Ketones Ql (U) Negative Normal NEG [facility] Comment on above: Performed By: #### U RAAD, UA #### [facility] [address] [place] [address], [place] [address] Nurse Receptionist: Mark Vera MD Leukocyte esterase Test strip Ql (U) 1+ Abnormal NEG [facility] Comment on above: Performed By: #### U RAAD, UA #### [facility] [address] [place] [address], [place] [address] Nurse Receptionist: Mark Vera MD Nitrite,Ur Negative Normal [facility] Comment on above: Performed By: #### U RAAD UA #### [facility] [address] [place] [address], [place] [address] Nurse Receptionist: Mark Vera MD PH,Ur 6.5 High 5.0-6.0 [facility] Comment on above: Performed By: #### U RAAD UA #### [facility] [address] [place] [address], [place] [address] Nurse Receptionist: Mark Vera MD Protein Ql (U) Negative Normal NEG [facility] Comment on above: Performed By: #### U RAAD UA #### [facility] [address] [place] [address], [place] [address] Nurse Receptionist: Mark Vera MD Spec. [place],Ur 1.020 Normal 1.010-1.025 [facility] Comment on above: Performed By: #### U RAAD UA #### [facility] [address] [place] [address], [place] [address] Nurse Receptionist: Mark Vera MD Urobilinogen,Ur Normal Normal 0.0-1.0 [facility] Comment on above: Performed By: #### U RAAD UA #### [facility] [address] [place] [address], [place] [address] Nurse Receptionist: Mark Vera MD Urinalysis,Microon 5 Bacteria FEW Abnormal NONE [facility] Comment on above: Performed By: #### U RAAD UA #### [facility] [address] [place] [address], [place] [address] Nurse Receptionist: Mark Vera MD Epithelial cells LM Ql (Urine sed) 0 TO 2 Normal 0-5 [facility] Comment on above: Performed By: #### U RAAD UA #### [facility] [address] [place] [address], [place] [address] Nurse Receptionist: Mark Vera MD Other Observations Utilizing a urinalysis as the only screening method to exclude a potential Abnormal NREQ [facility] Comment on above: Result Comment: urop athogen can be unreliable in many patient populations. Rapid screening tests are less sensitive than culture and if UTI is a clinical possibility, culture should be considered despite a negative urinalysis. Performed By: #### U MICAO, UA #### [facility] [address] [place] [phone] Nurse Receptionist: Mark Vera MD Urine RBC's 2 TO 5 Normal 0-4 [facility] Comment on above: Performed By: #### U MICAO, UA #### [facility] [address] [place] [phone] Nurse Receptionist: Mark Vera MD Urine WBC's 0 TO 2 Normal 0-4 [facility] Comment on above: Performed By: #### U MICAO, UA #### [facility] [address] [place] [id number] Nurse Receptionist: Mark Vera MD Urine Cultureon 12-31-2024 Bacteria identified Cx Nom (U) 50,000 colonies/ml mixed bacterial skin contaminants 2 Days PERFORMED BY: [place] [id number] PATHOLOGIST LABORER [employer] YAEL RECIO M.D. Normal [facility] Comment on above: Performed By: #### C UU #### [address] Urine cultureOrdered By: Juliane Castillo on 12-31-2024 Bacteria identified Cx Nom (U) Urine culture [facility] COVID/FLU/RSV RT-PCRon 02-17 SARS-CoV-2 (COVID-19) RNA VIRAL+probe Ql (Unsp spec) Negative [facility] [employer] Other COVID/FLU/RSV RT-PCR Negative [facility] [employer] Other Quick Strepon 02-17-2023 S. pyogenes Org specific cx Ql (Throat) Negative [employer] Other Quick Strep [employer] Other CBC with Auto Differentialon 01-23-2023 Absolute Eos # 0.17 [facility] Absolute Immature Granulocyte 0.04 [facility] Absolute Lymph # 1.18 [facility] Absolute [place] # 1.25 High [facility] Basophils Absolute [facility] Basophils/100 WBC (Bld) 0 % 0 - 2 % [facility] Eosinophils/100 WBC (Bld) 2 % 1 - 4 % [facility] Hematocrit (Bld) [Volume fraction] 42.4 % 36.3 - 47.1 % [facility] Hemoglobin (Bld) [Mass/Vol] 14.0 g/dL 11.9 - 15.1 g/dL [facility] Immature granulocytes/100 WBC (Bld) 1 % High 0 [facility] Interpretation and review of laboratory results Abnormal [facility] Lymphocytes/100 WBC (Bld) 17 % Low 24 - 43 % [facility] MCH (RBC) [Entitic mass] 30.3 pg 25.2 - 33.5 pg [facility] MCHC (RBC) [Mass/Vol] 33.0 g/dL 25.2 - 33.5 g/dL [facility] MCV (RBC) [Entitic vol] 91.8 fL 82.6 - 102.9 fL [facility] Monocytes/100 WBC (Bld) 18 % High 3 - 12 % [facility] NRBC Automated 0.0 0.0 per 100 WBC [facility] Platelet distribution width (Bld) [Ratio] 12.4 % 11.8 - 14.4 % [facility] Platelet mean volume (Bld) [Entitic vol] 9.3 fL 8.1 - 13.5 fL [facility] Platelets (Bld) [#/Vol] 262 10*3/uL [facility] RBC (Bld) [#/Vol] 4.62 10*6/uL 3.95 - 5.1 1 m/uL [facility] Segmented neutrophils/100 WBC (Bld) 62 % 36 - 65 % [facility] Segs Absolute 4.40 [facility] WBC (Bld) [#/Vol] 7.1 10*3/uL [facility] Comprehensive Metabolic Pane arlen 01-23-2023 Albumin [Mass/Vol] 4.1 g/dL 3.5 - 5.2 g/dL [facility] Albumin/Globulin [Mass ratio] 1.2 {ratio} 1.0 - 2.5 [facility] ALP [Catalytic activity/Vol] 120 U/L High 35 - 104 U/L [facility] ALT [Catalytic activity/Vol] 25 U/L 5 - 33 U/L [facility] Anion gap [Moles/Vol] 9 mmol/L 9 - 17 mmol/L [facility] AST [Catalytic activity/Vol] 25 U/L NINF - 32 U/L [facility] Bilirubin [Mass/Vol] 0.2 mg/dL Low 0.3 - 1 .2 mg/dL [facility] Calcium [Mass/Vol] 8.9 mg/dL 8.6 - 10. 4 mg/dL [facility] Chloride [Moles/Vol] 102 mmol/L 98 - 10 7 mmol/L [facility] CO2 [Moles/Vol] 27 mmol/L 20 - 31 mmol/L [facility] Creatinine [Mass/Vol] 0.96 mg/dL High 0.50 - 0.90 mg/dL [facility] GFR/1.73 sq M.predicted MDRD (S/P/Bld) [Vol rate/Area] - PINF [facility] Comment on above: These results are not intended for use in patients <18 years of age. eGFR results are calculated without a race factor using the 2020 CKD-EPI equation. Careful clinical correlation is recommended, particularly when comparing to results calculated using previous equations. The CKD-EPI equation is less accurate in patients with extremes of muscle mass, extra-renal metabolism of creatine, excessive creatine ingestion, or following therapy that affects renal tubular secretion. Glucose [Mass/Vol] 89 mg/dL 70 - 99 mg/dL [facility] Interpretation and review of laboratory results Abnormal [facility] Potassium [Moles/Vol] 4.4 mmol/L 3.7 - 5.3 mmol/L [facility] Protein [Mass/Vol] 7.4 g/dL 6.4 - 8.3 g/dL [facility] Sodium [Moles/Vol] 138 mmol/L 135 - 144 mmol/L [facility] Urea nitrogen [Mass/Vol] 9 mg/dL 6 - 20 mg/dL [facility] Urea nitrogen/Creatinine (Bld) [Mass ratio] 9 9 - 20 [facility] Lipaseon 01-23-2023 Lipase [Catalytic activity/Vol] 22 U/L 13 - 60 U/L [facility] Microscopic Urinalysison Bacteria, UA FEW Abnormal None [facility] Epithelial Cells UA 0 TO 2 [facility] Interpretation and review of laboratory results Abnormal [facility] Other Observations UA Utilizing a urinalysis as the only screening method to exclude a potential uropathogen can be unreliable in many patient populations. Rapid screening tests are less sensitive than culture and if UTI is a clinical possibility, culture should be considered despite a negative urinalysis. Abnormal NOT REQ. [facility] RBC clumps Auto (Urine sed) [#/Area] 0 TO 2 [facility] WBC, UA 0 TO 2 [facility] No Panel Informationon 01-23 [facility] Urinalysis with Reflex to Cu ltureon 01-23-2023 Bilirubin Urine Negative NEGATIVE [facility] Color, UA Yellow Yellow [facility] Glucose Auto test strip (U) [Mass/Vol] Negative NEGATIVE [facility] Interpretation and review of laboratory results Abnormal [facility] Ketones (U) [Mass/Vol] Negative NEGATIVE [facility] Leukocyte esterase Auto test strip Ql (U) Negative NEGATIVE [facility] Nitrite Auto test strip Ql (U) Negative NEGATIVE [facility] Protein (U) [Mass/Vol] 7.0 mg/dL High 5.0 - 6.0 [facility] Protein (U) [Mass/Vol] Negative NEGATIVE [facility] Specific [place], UA 1.015 1.010 - 1.025 [facility] Turbidity UA Clear Clear [facility] Urine Hgb TRACE Abnormal NEGATIVE [facility] Urobilinogen, Urine Normal Normal [facility] CSPINE WO CONon 3 CT CSPINE WO CON EXAMINATION: CT CSPINE WO CON HISTORY: UNSPECIFIED INJURY OF HEAD, INITIAL ENCOUNTER ; fell striking right side of head COMPARISON: No relevant comparison available. TECHNIQUE: Axial, Coronal, and Sagittal images were created without IV contrast. Dose reduction techniques were achieved by using automated exposure control and/or adjustment of mA and/or kV according to patient size and/or use of iterative reconstruction technique. FINDINGS: VERTEBRAL BODIES: Slight reversal of normal lordotic curvature. No fracture, spondylolisthesis, bone lesion. FACET JOINTS: No disruption or abnormal widening. CERVICAL DISCS: No significant disc/facet abnormality, spinal stenosis, or foraminal stenosis. CENTRAL CANAL: No spinal stenosis or evidence of hemorrhage. PARASPINAL AREA: No visible mass. IMPRESSION: 1. No acute bone abnormality. 2. Slight reversal of the normal lordotic curvature; positioning versus muscle spasm. 3. Minimal degenerative changes. Electronically authenticated by: WARNER CLAIRE Date: 2022-10-26 16:31 Normal [facility] CT HEAD WO CONon 10-26-2022 CT HEAD WO CON EXAMINATION: CT HEAD WO CON HISTORY: Unspecified fall ; fell striking right side of head; headache, nausea COMPARISON: No relevant comparison available. TECHNIQUE: Axial CT images were obtained without IV contrast. Dose reduction techniques were achieved by using automated exposure control and/or adjustment of mA and/or kV according to patient size and/or use of iterative reconstruction technique. FINDINGS: BRAIN: No edema, hemorrhage, mass, acute infarction, or inappropriate atrophy. CSF SPACES: No hydrocephalus, subarachnoid hemorrhage, or mass. Appropriate for age. SKULL: No fracture, mass, or other significant visible lesion. SINUSES: No significant mucosal thickening or fluid on the limited views. ORBITS: No appreciable abnormality on the limited views. OTHER: Negative IMPRESSION: 1. Normal CT appearance of the brain. 2. No fracture of the calvarium or scalp hematoma. Electronically authenticated by: WARNER CLAIRE Date: 2022-10-26 16:23 Normal [facility] CBC AUTO DIFFon 10-10-2022 BASO # 0.0 103/ul Normal 0.0-0.1 [facility] Comment on above: Performed By: #### C BC #### [facility] [address] [place] [address] Dr. Enid Knight Basophils/100 WBC (Bld) 0.3 % Normal 0.2-2.0 [facility] Comment on above: Performed By: #### C BC #### [facility] [address] [place] [address] Dr. Enid Knight EO # 0.1 103/ul Normal 0.0-0.7 [facility] Comment on above: Performed By: #### C BC #### [facility] [address] [place] [address] Dr. Enid Knight Eosinophils/100 WBC (Bld) 2.1 % Normal 0.9-7.0 [facility] Comment on above: Performed By: #### C BC #### [facility] [address] [place] [address] Dr. Enid Knight Erythrocyte distribution width (RBC) [Ratio] 12.4 % Normal 11.0-15.0 [facility] Comment on above: Performed By: #### C BC #### [facility] [address] [place] [address] Dr. Enid Knight Hematocrit (Bld) [Volume fraction] 40.7 % Normal 36.0-48.0 [facility] Comment on above: Performed By: #### C BC #### [facility] [address] [place] [address] Dr. Enid Knight Hemoglobin (Bld) [Mass/Vol] 13.8 g/dL Normal 12.0-16.0 [facility] Comment on above: Performed By: #### C BC #### [facility] [address] [place] [address] Dr. Enid Knight IG # 0.02 10e3/ul Normal 0.00-0.03 [facility] Comment on above: Performed By: #### C BC #### [facility] [address] [place] [address] Dr. Enid Knight IG % 0.3 % Normal 0.0-0.5 [facility] Comment on above: Performed By: #### C BC #### [facility] [address] [place] [address] Dr. Enid Knight LYMPH # 1.8 103/ul Normal 1.2-3.8 [facility] Comment on above: Performed By: #### C BC #### [facility] [address] [place] [address] Dr. Enid Knight Lymphocytes/100 WBC (Bld) 26.0 % Normal 20.5-60.0 [facility] Comment on above: Performed By: #### C BC #### [facility] [address] [place] [address] Dr. Enid Knight MANUAL DIFF REQ NO Normal [facility] Comment on above: Performed By: #### C BC #### [facility] [address] [place] [address] Dr. Enid Knight MCH (RBC) [Entitic mass] 30.5 pg Normal 26.7-34.0 [facility] Comment on above: Performed By: #### C BC #### [facility] [address] [place] [address] Dr. Enid Knight MCHC (RBC) [Mass/Vol] 33.9 g/dL Normal 29.9-35.2 [facility] Comment on above: Performed By: #### C BC #### [facility] [address] [place] [address] Dr. Enid Knight MCV (RBC) [Entitic vol] 89.8 fL Normal 81.0-99.0 [facility] Comment on above: Performed By: #### C BC #### [facility] [address] [place] [address] Dr. Enid Knight MONO # 0.9 103/ul Critically high 0.3-0.8 [facility] Comment on above: Performed By: #### C BC #### [facility] [address] [place] [address] Dr. Enid Knight Monocytes/100 WBC (Bld) 13.2 % Critically high 1.7-12.0 [facility] Comment on above: Performed By: #### C BC #### [facility] [address] [place] [address] Dr. Enid Knight NEUT # 3.9 103/ul Normal 1.4-6.5 [facility] Comment on above: Performed By: #### C BC #### [facility] [address] [place] [address] Dr. Enid Knight Neutrophils/100 WBC (Bld) 58.1 % Normal 43.0-75.0 [facility] Comment on above: Performed By: #### C BC #### [facility] [address] [place] [address] Dr. Enid Knight Platelet mean volume (Bld) [Entitic vol] 9.4 fL Critically low 9.5-13.5 [facility] Comment on above: Performed By: #### C BC #### [facility] [address] [place] [address] Dr. Enid Knight PLT 292 103/ul Normal 150-450 [facility] Comment on above: Performed By: #### C BC #### [facility] [address] [place] [address] Dr. Enid Knight RBC 4.53 106/ul Normal 4.20-5.40 [facility] Comment on above: Performed By: #### C BC #### [facility] [address] [place] [address] Dr. Enid Knight WBC 6.7 103/ul Normal 4.0-11.0 [facility] Comment on above: Performed By: #### C BC #### [facility] [address] [place] [address] Dr. Enid Knight VIT B12 AND FOLATEon 022 Cobalamin (Vitamin B12) [Mass/Vol] 991.0 pg/mL Critically high 193.0-986.0 [facility] Comment on above: Performed By: #### B 12FOL #### [facility] [address] [place], [place] [address] Dr. Enid Knight FOLATE 23.30 ng/mL Normal 8.60-58.90 [facility] Comment on above: Performed By: #### B 12FOL #### [facility] [address] [place], [place] [address] Dr. Enid Knight MG MAMM DIAGNOSTIC 3D DILIP CA Don 08-19-2022 MG MAMM DIAGNOSTIC 3D DILIP CAD Patient: GRISELDA WRIGHT. Exam Date: 08/19/2022 : 1985 Gender:F Ordering : DR DISHA CASTILLO M.D. Admission #: [id number] Family : Order #: [id number] CLICK HERE TO VIEW EXAM RADIOLOGY REPORT PROCEDURE: MAMMOGRAM DIAGNOSTIC 3D BILATERAL CAD, 08/19/2022, 13:53 ULTRASOUND BREAST RIGHT LIMITED, 08/19/2022, 14:32 COMPARISON: None. INDICATIONS: Lump in right breast Calculator Name NCI Breast Cancer Risk Assessment Tool 5 Year Breast Cancer Risk 0.40% Lifetime Breast Cancer Risk 11.30% Personal Breast Cancer No Personal Ovarian Cancer No Treatments None Family Cancers Grandmother-materna l with breast cancer at age 76. LOCATION: [facility] BREAST COMPOSITION: Heterogeneously dense,which may obscure small masses. FINDINGS: DIAGNOSTIC CATEGORY 2--BENIGN FINDING: The breasts are medium in size. Scattered benign-appearing lymph nodes are present. RIGHT BREAST: No significant suspicious finding. No mammographic or ultrasound abnormality to correspond to the patient's palpable abnormality demarcated with a triangle marker lower inner quadrant. Further evaluation should be based on clinical exam LEFT BREAST: No significant suspicious finding. RECOMMENDATIONS: CLINICAL EVALUATION. PLEASE NOTE: A NORMAL MAMMOGRAM DOES NOT EXCLUDE THE POSSIBILITY OF BREAST CANCER. A CLINICALLY SUSPICIOUS PALPABLE LUMP SHOULD BE BIOPSIED. Dictated by: Cleveland Sagastume MD on 08/19/2022 at 14:45 Approved by: Cleveland Sagastume MD on 08/19/2022 at 14:47 Normal [facility] US BREAST RIGHT LIMITEDon US BREAST RIGHT LIMITED Patient: GRISELDA WRIGHT Exam Date: 08/19/2022 : 1985 Gender:F Ordering : DR DISHA CASTILLO M.D. Admission #: [id number] Family : Order #: [id number] CLICK HERE TO VIEW EXAM RADIOLOGY REPORT PROCEDURE: MAMMOGRAM DIAGNOSTIC 3D BILATERAL CAD, 08/19/2022, 13:53 ULTRASOUND BREAST RIGHT LIMITED, 08/19/2022, 14:32 COMPARISON: None. INDICATIONS: Lump in right breast Calculator Name NCI Breast Cancer Risk Assessment Tool 5 Year Breast Cancer Risk 0.40% Lifetime Breast Cancer Risk 11.30% Personal Breast Cancer No Personal Ovarian Cancer No Treatments None Family Cancers Grandmother-materna l with breast cancer at age 76. LOCATION: [facility] BREAST COMPOSITION: Heterogeneously dense,which may obscure small masses. FINDINGS: DIAGNOSTIC CATEGORY 2--BENIGN FINDING: The breasts are medium in size. Scattered benign-appearing lymph nodes are present. RIGHT BREAST: No significant suspicious finding. No mammographic or ultrasound abnormality to correspond to the patient's palpable abnormality demarcated with a triangle marker lower inner quadrant. Further evaluation should be based on clinical exam LEFT BREAST: No significant suspicious finding. RECOMMENDATIONS: CLINICAL EVALUATION. PLEASE NOTE: A NORMAL MAMMOGRAM DOES NOT EXCLUDE THE POSSIBILITY OF BREAST CANCER. A CLINICALLY SUSPICIOUS PALPABLE LUMP SHOULD BE BIOPSIED. Dictated by: Cleveland Sagastume MD on 08/19/2022 at 14:45 Approved by: Cleveland Sagastume MD on 08/19/2022 at 14:47 Normal [facility] CBC AUTO DIFFon 06-02-2022 BASO # 0.0 103/ul Normal 0.0-0.1 [facility] Comment on above: Performed By: #### C BC #### [facility] [address] [place] [address] [address] Enid Knight Basophils/100 WBC (Bld) 0.5 % Normal 0.2-2.0 [facility] Comment on above: Performed By: #### C BC #### [facility] [address] [address] [address] Enid Knight EO # 0.1 103/ul Normal 0.0-0.7 [facility] Comment on above: Performed By: #### C BC #### [facility] [address] [address] [address] Enid Knight Eosinophils/100 WBC (Bld) 1.6 % Normal 0.9-7.0 [facility] Comment on above: Performed By: #### C BC #### [facility] [address] [place] [address] Dr. Enid Knight Erythrocyte distribution width (RBC) [Ratio] 12.3 % Normal 11.0-15.0 [facility] Comment on above: Performed By: #### C BC #### [facility] [address] [place] [address] Dr. Enid Knight Hematocrit (Bld) [Volume fraction] 42.7 % Normal 36.0-48.0 [facility] Comment on above: Performed By: #### C BC #### [facility] [address] [place] [address] Dr. Enid Knight Hemoglobin (Bld) [Mass/Vol] 14.3 g/dL Normal 12.0-16.0 [facility] Comment on above: Performed By: #### C BC #### [facility] [address] [place] [address] Dr. Enid Knight IG # 0.04 10e3/ul Critically high 0.00-0.03 [facility] Comment on above: Performed By: #### C BC #### [facility] [address] [place] [address] Dr. Enid Knight IG % 0.5 % Normal 0.0-0.5 [facility] Comment on above: Performed By: #### C BC #### [facility] [address] [place] [address] Dr. Enid Knight LYMPH # 2.0 103/ul Normal 1.2-3.8 [facility] Comment on above: Performed By: #### C BC #### [facility] [address] [place] [address] Dr. Enid Knight Lymphocytes/100 WBC (Bld) 23.4 % Normal 20.5-60.0 [facility] Comment on above: Performed By: #### C BC #### [facility] [address] [place] [address] Dr. Enid Knight MANUAL DIFF REQ NO Normal [facility] Comment on above: Performed By: #### C BC #### [facility] [address] [address] [address] Enid Knight MCH (RBC) [Entitic mass] 30.5 pg Normal 26.7-34.0 [facility] Comment on above: Performed By: #### C BC #### [facility] [address] [address] [address] Enid Knight MCHC (RBC) [Mass/Vol] 33.5 g/dL Normal 29.9-35.2 [facility] Comment on above: Performed By: #### C BC #### [facility] [address] [address] [address] Enid Knight MCV (RBC) [Entitic vol] 91.0 fL Normal 81.0-99.0 [facility] Comment on above: Performed By: #### C BC #### [facility] [address] [place] [address] Dr. Enid Knight MONO # 1.0 103/ul Critically high 0.3-0.8 [facility] Comment on above: Performed By: #### C BC #### [facility] [address] [address] [address] Enid Knight Monocytes/100 WBC (Bld) 11.8 % Normal 1.7-12.0 [facility] Comment on above: Performed By: #### C BC #### [facility] [address] [place] [address] Dr. Enid Knight NEUT # 5.4 103/ul Normal 1.4-6.5 [facility] Comment on above: Performed By: #### C BC #### [facility] [address] [place] [address] Dr. Enid Knight Neutrophils/100 WBC (Bld) 62.2 % Normal 43.0-75.0 [facility] Comment on above: Performed By: #### C BC #### [facility] [address] [place] [address] Dr. Enid nKight Platelet mean volume (Bld) [Entitic vol] 9.5 fL Normal 9.5-13.5 [facility] Comment on above: Performed By: #### C BC #### [facility] [address] [address] [address] Enid Knight PLT 337 103/ul Normal 150-450 [facility] Comment on above: Performed By: #### C BC #### [facility] [id number] Enid Knight RBC 4.69 106/ul Normal 4.20-5.40 [facility] Comment on above: Performed By: #### C BC #### [facility] [address] [address] [address] Enid Knight WBC 8.6 103/ul Normal 4.0-11.0 [facility] Comment on above: Performed By: #### C BC #### [facility] [address] [address] [address] Enid Knight CULTURE URINEon 06-02-2022 CULTURE URINE Culture Observations: LIGHT GROWTH OF MIXED GENITAL ROSALIE. NO POTENTIAL PATHOGENS SEEN. Normal [facility] Comment on above: Performed By: #### U RCX ####[facility] [id number] [address]Dr. Enid Knight PROF 14(COMP METB)on 022 Albumin [Mass/Vol] 3.5 g/dL Normal 3.4-5.0 [facility] Comment on above: Performed By: #### C MP #### [facility] [address] [place] [address] Dr. Enid Knight Albumin/Globulin [Mass ratio] 0.9 {ratio} Normal [facility] Comment on above: Performed By: #### C MP #### [facility] [address] [address] [address] Enid Knight ALP [Catalytic activity/Vol] 68 U/L Normal 46-116 [facility] Comment on above: Performed By: #### C MP #### [facility] [address] [address] [address] Enid Knight ALT [Catalytic activity/Vol] 23 U/L Normal 14-59 [facility] Comment on above: Performed By: #### C MP #### [facility] [address] [address] [address] Enid Knight Anion gap [Moles/Vol] 11.6 mmol/L Normal [facility] Comment on above: Performed By: #### C MP #### [facility] [address] [address] [address] Enid Kinght AST [Catalytic activity/Vol] 16 U/L Normal 15-37 [facility] Comment on above: Performed By: #### C MP #### [facility] [address] [address] [address] Enid Knight Bilirubin [Mass/Vol] 0.2 mg/dL Normal 0.2-1.0 [facility] Comment on above: Performed By: #### C MP #### [facility] [address] [place] [address] Dr. Enid Knight Calcium [Mass/Vol] 8.5 mg/dL Normal 8.5-10.1 [facility] Comment on above: Performed By: #### C MP #### [facility] [address] [address] [address] Enid Knight Chloride [Moles/Vol] 103 mmol/L Normal 98-107 [facility] Comment on above: Performed By: #### C MP #### [facility] [address] [place] [address] Dr. Enid Knight CO2 [Moles/Vol] 27.0 mmol/L Normal 21.0-32.0 [facility] Comment on above: Performed By: #### C MP #### [facility] [address] [address] [address] Enid Knight Creatinine [Mass/Vol] 0.98 mg/dL Normal 0.55-1.02 [facility] Comment on above: Performed By: #### C MP #### [facility] [address] [place] [address] Dr. Enid Knight EGFR-AF [place]IZ[place] >60 Normal >=60 [facility] Comment on above: Performed By: #### C MP #### [facility] [address] [address] [address] Enid Knight EGFR-NON AF [place]IZ[place] >60 Normal >=60 [facility] Comment on above: Performed By: #### C MP #### [facility] [address] [address] [address] Enid Knight Globulin (S) [Mass/Vol] 3.9 g/dL Normal [facility] Comment on above: Performed By: #### C MP #### [facility] [address] [address] [address] Enid Knight Glucose [Mass/Vol] 91 mg/dL Normal 74-106 [facility] Comment on above: Performed By: #### C MP #### [facility] [address] [place] [address] Dr. Enid Knight Potassium [Moles/Vol] 3.6 mmol/L Normal 3.5-5.1 [facility] Comment on above: Performed By: #### C MP #### [facility] [address] [place] [address] Dr. Enid Knight Protein [Mass/Vol] 7.4 g/dL Normal 6.4-8.2 [facility] Comment on above: Performed By: #### C MP #### [facility] [address] [place] [address] Dr. Enid Knight Sodium [Moles/Vol] 138 mmol/L Normal 136-145 [facility] Comment on above: Performed By: #### C MP #### [facility] [address] [place] [address] Dr. Enid Knight Urea nitrogen [Mass/Vol] 11.0 mg/dL Normal 7.0-18.0 [facility] Comment on above: Performed By: #### C MP #### [facility] [address] [place] [address] Dr. Enid Knight Urea nitrogen/Creatinine [Mass ratio] 11.2 mg/mg Normal [facility] Comment on above: Performed By: #### C MP #### [facility] [address] [place] [address] Dr. Enid Knight UA RANDOM W/MICROSCOPICon BACTERIA TRACE Abnormal NONE SEEN [facility] Comment on above: Performed By: #### U AMIC #### [facility] [address] [place] [address] Dr. Enid Knight Bilirubin Ql (U) Negative Normal NEGATIVE [facility] Comment on above: Performed By: #### U AMIC #### [facility] [address] [address] [address] Enid Knight CAST NONE SEEN Normal NONE SEEN [facility] Comment on above: Performed By: #### U AMIC #### [facility] [address] [address] [address] Enid Knight Clarity (U) CLEAR Normal CLEAR [facility] Comment on above: Performed By: #### U AMIC #### [facility] [address] [place] [address] Dr. Enid Knight Color (U) YELLOW Normal YELLOW [facility] Comment on above: Performed By: #### U AMIC #### [facility] [address] [place] [address] Dr. Enid Knight Crystals LM Nom (Urine sed) NONE SEEN Normal NONE SEEN [facility] Comment on above: Performed By: #### U AMIC #### [facility] [address] [place] [address] Dr. Enid Knight Epithelial cells LM Ql (Urine sed) MANY Abnormal NONE SEEN /RARE [facility] Comment on above: Performed By: #### U AMIC #### [facility] [address] [address] [address] Enid Knight Glucose Ql (U) Negative Normal NEGATIVE [facility] Comment on above: Performed By: #### U AMIC #### [facility] [address] [address] [address] Enid Knight Hemoglobin Ql (U) Negative Normal NEGATIVE [facility] Comment on above: Performed By: #### U AMIC #### [facility] [address] [place] [address] Dr. Enid Knight Ketones Ql (U) Negative Normal NEGATIVE [facility] Comment on above: Performed By: #### U AMIC #### [facility] [address] [place] [address] Dr. Enid Knight LEUKOCYTES TRACE Abnormal NEGATIVE [facility] Comment on above: Performed By: #### U AMIC #### [facility] [address] [place] [address] Dr. Enid Knight MUCOUS NONE SEEN Normal NONE SEEN [facility] Comment on above: Performed By: #### U AMIC #### [facility] [address] [address] [address] Enid Knight Nitrite Ql (U) Negative Normal NEGATIVE [facility] Comment on above: Performed By: #### U AMIC #### [facility] [address] [place] [address] Dr. Enid Knight pH (U) 7.5 [pH] Normal 5-9 [facility] Comment on above: Performed By: #### U AMIC #### [facility] [address] [place] [address] Dr. Enid Knight RBC NONE SEEN Abnormal 0-2 [facility] Comment on above: Performed By: #### U AMIC #### [facility] [address] [place] [address] Dr. Enid Knight SPEC GRAVITY 1.015 Normal 1.005-<=1.02 5 [facility] Comment on above: Performed By: #### U AMIC #### [facility] [address] [place] [address] Dr. Enid Knight UA PROTEIN Negative Normal NEGATIVE/ TRACE [facility] Comment on above: Performed By: #### U AMIC #### [facility] [address] [place] [address] Dr. Enid Knight Urobilinogen Qn (U) 0.2 {Raghu'U}/dL Normal 0.2 - 1. 0 [facility] Comment on above: Performed By: #### U AMIC #### [facility] [address] [place] [address] Dr. Enid Knight WBC 2-5 Abnormal NONE SEEN [facility] Comment on above: Performed By: #### U AMIC #### [facility] [address] [address] [address] Enid Knight XR KUB 1 VIEWon 06-02-2022 XR KUB 1 VIEW EXAMINATION: XR KUB 1 VIEW HISTORY: Abdominal pain COMPARISON: No relevant comparison available. FINDINGS: BOWEL GAS PATTERN: No abnormal dilation or deviation. CALCIFICATIONS: None significant. OTHER: Negative. No abnormal gaseous collections. IMPRESSION: Nonobstructive bowel gas pattern Electronically authenticated by: [place] SAGASTUME Date: 2022-06-02 18:34 Normal [facility] CBC AUTO DIFFon 04-12-2022 BASO # 0.0 103/ul Normal 0.0-0.1 [facility] Comment on above: Performed By: #### C BC ####[facility] [address] [place], [place] [address]DrJeff Knight Basophils/100 WBC (Bld) 0.2 % Normal 0.2-2.0 [facility] Comment on above: Performed By: #### C BC ####[facility] Ufmsdddxaw[address] [place], [place] [address]DrJeff Knight EO # 0.1 103/ul Normal 0.0-0.7 [facility] Comment on above: Performed By: #### C BC ####[facility] Mpufkypexb[address] [place], [place] [address]DrJeff Knight Eosinophils/100 WBC (Bld) 1.2 % Normal 0.9-7.0 [facility] Comment on above: Performed By: #### C BC ####[facility] [address] [place] [address]DrJeff Knight Erythrocyte distribution width (RBC) [Ratio] 11.9 % Normal 11.0-15.0 [facility] Comment on above: Performed By: #### C BC ####[facility] Mgobmucdil119[address] [place], [place] [address]DrJeff Knight Hematocrit (Bld) [Volume fraction] 41.0 % Normal 36.0-48.0 [facility] Comment on above: Performed By: #### C BC ####[facility] Udxhrieeqr[address] [place], [place] [address]Dr. Enid Knight Hemoglobin (Bld) [Mass/Vol] 13.9 g/dL Normal 12.0-16.0 [facility] Comment on above: Performed By: #### C BC ####[facility] [address] [place] [address]Dr. Enid Kinght IG # 0.02 10e3/ul Normal 0.00-0.03 [facility] Comment on above: Performed By: #### C BC ####[facility] Tqlpnhdekr[address] [place], [place] [address]Dr. Enid Knight IG % 0.2 % Normal 0.0-0.5 [facility] Comment on above: Performed By: #### C BC ####[facility] Szpsieqlpr[address] [place], [place] [address]Dr. Enid Knight LYMPH # 1.8 103/ul Normal 1.2-3.8 [facility] Comment on above: Performed By: #### C BC ####[facility] Bhuialvjnp319[address] [place], [place] [address]Dr. Enid Knight Lymphocytes/100 WBC (Bld) 18.9 % Critically low 20.5-60.0 [facility] Comment on above: Performed By: #### C BC ####[facility] Kltcuqxral336[address] [place], [place] [address]Dr. Enid Knight MANUAL DIFF REQ NO Normal [facility] Comment on above: Performed By: #### C BC ####[facility] Scnwonyclt[address] [place], [place] [address]Dr. Enid Knight MCH (RBC) [Entitic mass] 30.8 pg Normal 26.7-34.0 [facility] Comment on above: Performed By: #### C BC ####[facility] Tidqbpvlsu[address] [place], [place] [address]Dr. Enid Knight MCHC (RBC) [Mass/Vol] 33.9 g/dL Normal 29.9-35.2 [facility] Comment on above: Performed By: #### C BC ####[facility] Zstcieqzfz08[address] [place], [place] [address]Dr. Enid Knight MCV (RBC) [Entitic vol] 90.9 fL Normal 81.0-99.0 [facility] Comment on above: Performed By: #### C BC ####[facility] Ldyxzldejf[address] [place], [place] [address]DrJeff Enid Knight MONO # 0.7 103/ul Normal 0.3-0.8 [facility] Comment on above: Performed By: #### C BC ####[facility] Ijiiosggym188[address] [place], [place] [address]Dr. Enid Knight Monocytes/100 WBC (Bld) 7.2 % Normal 1.7-12.0 [facility] Comment on above: Performed By: #### C BC ####[facility] Yqjguanjpq[address] [place], [place] [address]DrJeff Enid Knight NEUT # 6.8 103/ul Critically high 1.4-6.5 [facility] Comment on above: Performed By: #### C BC ####[facility] Gwgawnucxc8720[address] [place], [place] [address]Dr. Enid Knight Neutrophils/100 WBC (Bld) 72.3 % Normal 43.0-75.0 [facility] Comment on above: Performed By: #### C BC ####[facility] Pcgwuxtkvd[address] [place], [place] [address]DrJeff Enid Eugene Platelet mean volume (Bld) [Entitic vol] 9.5 fL Normal 9.5-13.5 [facility] Comment on above: Performed By: #### C BC ####[facility] Djppxptmyf7938[address] [place], [place] [address]Dr. Enid Eugene PLT 324 103/ul Normal 150-450 [facility] Comment on above: Performed By: #### C BC ####[facility] Enqceulipq408[address] [place], [place] [address]DrJeff Wrightasher Eugene RBC 4.51 106/ul Normal 4.20-5.40 [facility] Comment on above: Performed By: #### C BC ####[facility] Nromtddkrq209[address] [place], [place] [address]Dr. Enid Knight WBC 9.4 103/ul Normal 4.0-11.0 [facility] Comment on above: Performed By: #### C BC ####[facility] [address] [place] [address]DrJeff Knight FREE T4on 04-12-2022 Free T4 [Mass/Vol] 0.79 ng/dL Normal 0.76-1.46 [facility] Comment on above: Performed By: #### V ITAD, FT4 #### [facility] [id number] Enid Knight LAB TESTINGon 04-12-2022 RECV HEADER SEE SCANNED REPORT IN [facility] Comment on above: Performed By: #### M ISC ####[facility] Orrxanlztu[address] [place], [place] [address]DrJeff Knight REV FROM REF LAB 04/13/22 [facility] Comment on above: Performed By: #### M ISC ####[facility] Osqopbajtu7[address] [place], [place] [address]DrJeff Knight SENT TO REF LAB 04/12/[address] [facility] Comment on above: Performed By: #### M ISC ####[facility] Bsoxgsofgr9[address] [place], [place] [address]Dr. Enid Knight PROF CHEM 8 (BAS METB)on Anion gap [Moles/Vol] 16.6 mmol/L Normal [facility] Comment on above: Performed By: #### T HORACE, BMP ####[facility] [address]ubs[address] [place] [address]DrJeff Knight Calcium [Mass/Vol] 8.8 mg/dL Normal 8.5-10.1 [facility] Comment on above: Performed By: #### T SH, BMP ####[facility] Fochwcksza190[address] [place], [place] [address]DrJeff Knight Chloride [Moles/Vol] 104 mmol/L Normal 98-107 [facility] Comment on above: Performed By: #### T HORACE, BMP ####[facility] [address]tra[address] [place] [address]Dr. Enid Knight CO2 [Moles/Vol] 24.7 mmol/L Normal 21.0-32.0 [facility] Comment on above: Performed By: #### T HORACE, BMP ####[facility] Hlevisajuc5725[address] [place], [place] [address]Dr. Enid Knight Creatinine [Mass/Vol] 1.21 mg/dL Critically high 0.55-1.02 [facility] Comment on above: Performed By: #### T HORACE, BMP ####[facility] Pyjtubvnkj[address] [place], [place] [address]Dr. Enid Knight EGFR-AF [place]IZ[place] >60 Normal >=60 [facility] Comment on above: Performed By: #### T HORACE, BMP ####[facility] Dcrnbdybtp13[address] [place], [place] [address]Dr. Enid Knight EGFR-NON AF [place] 50 mL/min/1.73m2 Critically low >=60 [facility] Comment on above: Performed By: #### T HORACE, BMP ####[facility] Tmjsneumbr[address] [place], [place] [address]Dr. Enid Knight Glucose [Mass/Vol] 103 mg/dL Normal 74-106 [facility] Comment on above: Performed By: #### T HORACE, BMP ####[facility] Zbhgtfibdp24[address] [place], [place] [address]Dr. Enid Knight Potassium [Moles/Vol] 3.3 mmol/L Critically low 3.5-5.1 [facility] Comment on above: Performed By: #### T HORACE, BMP ####[facility] Bzulkkfndi[address] [place], [place] [address]Dr. Enid Knight Sodium [Moles/Vol] 142 mmol/L Normal 136-145 [facility] Comment on above: Performed By: #### T HORACE, BMP ####[facility] Kmmtgppstm[address] [place], [place] [address]Dr. Enid Knight Urea nitrogen [Mass/Vol] 10.0 mg/dL Normal 7.0-18.0 [facility] Comment on above: Performed By: #### T HORACE, BMP ####[facility] [address] [place] [address]DrJeff Knight Urea nitrogen/Creatinine [Mass ratio] 8.3 mg/mg Normal [facility] Comment on above: Performed By: #### T SH, BMP ####[facility] [address] [place], [place] [address]OtJeff Knight SED RATE WESTERGRENon 2021 SED RATE 17 mm/hr Normal <=20 [facility] Comment on above: Performed By: #### S EDR #### [facility] [address] [address] [address] Enid Knight TSHon 04-12-2022 TSH 0.929 uIU/mL Normal 0.358-3.740 [facility] Comment on above: Performed By: #### T HORACE, BMP ####[facility] [address] [place] [address]DrJeff Knight VITAMIN D 25 OHon 04-12-2022 VIT D 25-OH 81.1 ng/mL Normal [facility] Comment on above: Performed By: #### V CECI, FT4 #### [facility] [address] [place] [address] Dr. Enid Knight VIT D RANGES SEE BELOW Normal [facility] Comment on above: Result Comment: <20 ng/mL Vit D deficient 20 - <30 ng/mL Vit D insufficient 30 - 100 ng/mL Vit D sufficient >100 ng/mL Potential Toxicity Performed By: #### V CECI, FT4 #### [facility] [address] [place] [address] Dr. Enid Knight XR LSPINE MIN 4 VIEWSon 03-24 XR LSPINE MIN 4 VIEWS EXAMINATION: XR LSPINE MIN 4 VIEWS HISTORY: Low back pain COMPARISON: No relevant comparison available. FINDINGS: BONES: Mild widespread spondylosis and facet osteoarthritis. No visible acute bony abnormality. DISC SPACES: Normal. No significant disc height narrowing, subluxation, or endplate abnormality. PARASPINOUS: Negative. No paraspinous abnormality is seen. OTHER: Negative. IMPRESSION: Mild degenerative changes Electronically authenticated by: CLEVELAND SAGASTUME Date: 2022-04-12 21:54 Normal [facility] HCG ( test) Ql (U)O rdered By: Watson Adams on 07-02-2021 INTER[address] Acceptable [facility] Preg Test, Ur Negative Negative [facility] CT SINUS W NAVIGATIONOrdered By: Drake Otoole on 05-07-2021 There is mucoperiosteal thickening seen right maxillary sinus and to a lesser extent left maxillary sinus from chronic maxillary sinus disease. There is narrowing of the ostiomeatal complex bilaterally. Narrowing of the left nasal passageway from enlarged turbinates. [facility] CLINICAL INDICATION: 35-year-old female history of chronic maxillary sinusitis. Recalcitrant to medical therapy. CT Scan of the Paranasal Sinuses: TECHNIQUE: CT scan was obtained with axial and coronal views through the paranasal sinuses. All CT scans at this facility use dose modulation, iterative reconstruction , and weight based dosing when appropriate to reduce radiation dose to as low as reasonably achievable. COMPARISON: No previous study available for comparison in the PACS system. FINDINGS: The study reveals the frontal, ethmoid sinuses appear normal. There is mucoperiosteal thickening seen in the right maxillary sinus. There is narrowing seen in both ostiomeatal complex seen. Some mild mucoperiosteal thickening left maxillary sinus. There is narrowing seen of the left nasal passage noted. Swollen left nasal turbinates seen along the inferior and middle turbinates. Sphenoid sinus within normal limits. Frontal sinus within normal limits. Mastoid air cells are normal. [facility] Interface, Ris Results In - 05/07/2021 9:23 AM EDT CLINICAL INDICATION: 35-year-old female history of chronic maxillary sinusitis. Recalcitrant to medical therapy. CT Scan of the Paranasal Sinuses: TECHNIQUE: CT scan was obtained with axial and coronal views through the paranasal sinuses. All CT scans at this facility use dose modulation, iterative reconstruction , and weight based dosing when appropriate to reduce radiation dose to as low as reasonably achievable. COMPARISON: No previous study available for comparison in the PACS system. FINDINGS: The study reveals the frontal, ethmoid sinuses appear normal. There is mucoperiosteal thickening seen in the right maxillary sinus. There is narrowing seen in both ostiomeatal complex seen. Some mild mucoperiosteal thickening left maxillary sinus. There is narrowing seen of the left nasal passage noted. Swollen left nasal turbinates seen along the inferior and middle turbinates. Sphenoid sinus within normal limits. Frontal sinus within normal limits. Mastoid air cells are normal. IMPRESSION: There is mucoperiosteal thickening seen right maxillary sinus and to a lesser extent left maxillary sinus from chronic maxillary sinus disease. There is narrowing of the ostiomeatal complex bilaterally. Narrowing of the left nasal passageway from enlarged turbinates. [facility] CBC W Auto Differential pane l (Bld)on 04-02-2021 Basophils (Bld) [#/Vol] 0.00 thou/mcL Normal 0.00-0.20 [facility] Comment on above: Performed By: #### 5 7021-8, 10171-9 ####[facility] [address] [place] [address] Basophils/100 WBC (Bld) 0.4 % Normal 0.0-2.0 [facility] Comment on above: Performed By: #### 5 7021-8, 84862-1 ####[facility] [address] [place] [address] Eosinophils (Bld) [#/Vol] 0.20 thou/mcL Normal 0.00-0.70 [facility] Comment on above: Performed By: #### 5 7021-8, 34264-4 ####[facility] [address] [place] [address] Eosinophils/100 WBC (Bld) 1.7 % Normal 0.0-7.0 [facility] Comment on above: Performed By: #### 5 7021-8, 48137-6 ####[facility] [address] [place] [address] Erythrocyte distribution width (RBC) [Entitic vol] 12.3 % Normal 11.0-14.8 [facility] Comment on above: Performed By: #### 5 7021-8, 82921-5 ####[facility] [address] [place] [address] Hematocrit (Bld) [Volume fraction] 41.0 % Normal 35.0-45.0 [facility] Comment on above: Performed By: #### 5 7021-8, 04292-1 ####[facility] [address] [place] [address] Hemoglobin (Bld) [Mass/Vol] 13.8 g/dL Normal 12.0-16.0 [facility] Comment on above: Performed By: #### 70-, 08605-6 ####[facility] [address] [place] [address] Lymphocytes (Bld) [#/Vol] 2.10 thou/mcL Normal 1.00-4.80 [facility] Comment on above: Performed By: #### Danilo 70-, 14471-3 ####[address] [address] Lymphocytes/100 WBC (Bld) 21.0 % Low 22.0-44.0 [facility] Comment on above: Performed By: #### Danilo 70-, 50572-0 ####[address] [address] MCH (RBC) [Entitic mass] 30.9 Picograms Normal 27.0-34.0 [facility] Comment on above: Performed By: #### Danilo 7021-, 34740-9 ####[address] [address] MCHC (RBC) [Mass/Vol] 33.8 g/dL Normal 32.0-36.[address] [facility] Comment on above: Performed By: #### Danilo 7021-, 21164-5 ####[address] [address] MCV (RBC) [Entitic vol] 91.3 fL Normal 80.0-97.0 [facility] Comment on above: Performed By: #### Danilo 7021-, 75174-6 ####[address] [address] Monocytes (Bld) [#/Vol] 0.90 thou/mcL Normal 0.00-0.90 [facility] Comment on above: Performed By: #### Danilo 70-, 63662-7 ####[facility] [address] [place] [address] Monocytes/100 WBC (Bld) 9.0 % Normal 0.0-12.0 [facility] Comment on above: Performed By: #### 70-, 09655-2 ####[facility] [address] [place] [address] Neutrophils (Bld) [#/Vol] 6.80 thou/mcL Normal 1.80-7.70 [facility] Comment on above: Performed By: #### 70, 18561-4 ####[facility] [address] [place] [address] Neutrophils/100 WBC (Bld) 67.9 % Normal 40.0-70.0 [facility] Comment on above: Performed By: #### 70, 28238-4 #### [facility] [address] [place] [address] Platelet mean volume (Bld) [Entitic vol] 8.9 fL Normal 6.2-12.1 [facility] Comment on above: Performed By: #### 7021-, 63994-6 ####MARLYSJeff [address] [address] Platelets (Bld) [#/Vol] 287 thou/mcL Normal 142-424 [facility] Comment on above: Performed By: #### 7021-, 92620-9 #### [facility] [address] [place] [address] RBC (Bld) [#/Vol] 4.49 million/mcL Normal 3.80-5.10 [facility] Comment on above: Performed By: #### 7021-, 16761-3 #### [facility] [address] [place] [address]83 WBC (Bld) [#/Vol] 10.0 thou/mcL Normal 4.6-10.2 [facility] Comment on above: Performed By: #### Danilo 7021-, 82548-5 ####[facility] [address] [place] [address] Comprehensive metabolic 2000 panelon 04-02-2021 Albumin [Mass/Vol] 4.0 g/dL Normal 3.5-4.8 [facility] Comment on above: Performed By: #### 6 9405-9, 33455-8u9, 14311-6, 3016-3, 3024- 7, 3053-6 ####[facility] [address] [place] [address] ALP [Catalytic activity/Vol] 47 Units/L Normal 32-91 [facility] Comment on above: Performed By: #### 6 9405-9, 60272-0i7, 90472-7, 3016-3, 3024- 7, 3053-6 ####[facility] [address] [place] [address]168 ALT [Catalytic activity/Vol] 19 Units/L Normal 7-52 [facility] Comment on above: Result Comment: De coppola note: Change in reference range for ALT occurred on 09/03/[address] [facility], [facility], and [facility]. Performed By: #### 6 9405-9, 99931-8x6, 73186-1, 3016-3, 3024-7, 3053-6 ####[facility] [address] [place] [address] Anion gap [Moles/Vol] 9.0 mmol/L Normal 6.0-18.[address] [facility] Comment on above: Performed By: #### 6 9405-9, 14731-4s2, 57269-8, 3016-3, 3024- 7, 3053-6 ####[facility] [address] [place] [address] AST [Catalytic activity/Vol] 18 Units/L Normal 15-41 [facility] Comment on above: Performed By: #### 6 9405-9, 00296-0d4, 85004-1, 3016-3, 3024- 7, 3053-6 ####[facility] [address] [place] [address] Bilirubin [Mass/Vol] 0.3 mg/dL Normal 0.3-1.2 [facility] Comment on above: Performed By: #### 6 9405-9, 15378-7r2, 06881-7, 3016-3, 3024- 7, 3053-6 ####[facility] [address] [place] [address] Calcium [Mass/Vol] 9.5 mg/dL Normal 8.9-10.3 [facility] Comment on above: Performed By: #### 6 9405-9, 35206-6r2, 12092-6, 3016-3, 3024- 7, 3053-6 ####[facility] [address] [place] [address] Chloride [Moles/Vol] 101 mmol/L Normal 98-107 [facility] Comment on above: Performed By: #### 6 9405-9, 50052-7n7, 51361-4, 3016-3, 3024- 7, 3053-6 ####[facility] [address] [place] [address] CO2 [Moles/Vol] 29 mmol/L Normal 22-32 [facility] Comment on above: Performed By: #### 6 9405-9, 25638-4k2, 92578-3, 3016-3, 3024- 7, 3053-6 ####[facility] [address] [place] [address] Creatinine [Mass/Vol] 1.07 mg/dL Normal 0.60-1.30 [facility] Comment on above: Performed By: #### 6 9405-9, 27713-9j5, 21992-7, 3016-3, 3024- 7, 3053-6 ####[facility] [address] [place] [address] Glucose [Mass/Vol] 85 mg/dL Normal 70-99 [facility] Comment on above: Result Comment: U pdated ADA Reference Range A normal fasting glucose concentration is less than 100 mg/dL. An impaired fasting glucose concentration is 100-125 mg/dL. A provisional diagnosis of diabetes mellitus can be made when a fasting glucose concentration is greater than 125 mg/dL. Performed By: #### 6 9405-9, 13417-0j6, 52842-9, 3016-3, 3024-7, 3053-6 ####[facility] [address] [place] [address] Potassium [Moles/Vol] 3.9 mmol/L Normal 3.6-5.1 [facility] Comment on above: Performed By: #### 6 9405-9, 03323-3n3, 65973-7, 3016-3, 3024- 7, 3053-6 ####[facility] [address] [place] [address] Protein [Mass/Vol] 6.8 g/dL Normal 6.1-7.9 [facility] Comment on above: Performed By: #### 6 9405-9, 36023-1l3, 95424-1, 3016-3, 3024- 7, 3053-6 ####[facility] [address] [place] [address] Sodium [Moles/Vol] 139 mmol/L Normal 136-145 [facility] Comment on above: Performed By: #### 6 9405-9, 62742-1k7, 81626-8, 3016-3, 3024- 7, 3053-6 ####[facility] [address] [place] [address] Urea nitrogen (BldV) [Mass/Vol] 17 mg/dL Normal 8-20 [facility] Comment on above: Performed By: #### 6 9405-9, 10731-2c9, 34861-3, 3016-3, 3024- 7, 3053-6 ####[facility] [address] [place] [address] GFR/1.73 sq M.predicted (S/P /Bld) [Vol rate/Area]on 04-02-2021 GFR/1.73 sq M.predicted among blacks MDRD (S/P/Bld) [Vol rate/Area] mL/min/{1.73_m2} Normal [facility] Comment on above: Result Comment: The MDRD equation has not been validated for those over 70 years, women, patients with serious co-morbid conditions, or with extremes of body size, muscle mass of nutritional status. Performed By: #### 6 9405-9, 01268-8c1, 68940-3, 3016-3, 3024-7, 3053-6 ####[address] [address] GFRbbon 04-02-2021 GFR/1.73 sq M.predicted among non-blacks MDRD (S/P/Bld) [Vol rate/Area] 58 mL/min/{1.73_m2} Normal [facility] Comment on above: Performed By: #### 6 9405-9, 44809-1x5, 00059-5, 3016-3, 3024- 7, 3053-6 ####[address] [address] Heterophile Ab Qn (S)on 03-23 Heterophile Ab Ql (S) Negative Normal NEGATI VE-NEG ATIVE [facility] Comment on above: Performed By: #### 5 7021-8, 93905-0 ####[address] [address] T3 (Triiodothyronine) Totalo n 04-02-2021 T3 [Mass/Vol] 109 Nanogram/dL Normal 87-178 [facility] Comment on above: Performed By: #### C D:[id number] #### [facility] [address], [place] #### 89027-7, 71331-5, 84377-8, 3016-3, 3024-7, 6-4, 4-8, 1988-3, 9 #### [facility] [facility] [address] [address] #### 4549-2 #### [address] [address] #### CD:[id number], 2597-3 #### [facility], [address] [place], [place] T4 (Thyroxine) Freeon 2020 Free T4 [Mass/Vol] 0.8 Nanogram/dL Normal 0.6-1.6 [facility] Comment on above: Performed By: #### C D:[id number] #### [facility] [address], [place] #### 85282-7, 36066-0, 72721-4, 3016-3, 3024-7, 2276-4, 2284-8, 1988-3, 2132-9 #### [facility] [address] [place] [address] #### 4549-2 #### [facility] [address] [place] [address] #### CD:[id number], 2597-3 #### [facility], [address] [facility], [place] TSH Qnon 04-02-2021 TSH Qn (Bld) 0.82 mcIU/mL Normal 0.45-5.33 [facility] Comment on above: Performed By: #### 6 9405-9, 50535-5h4, 60573-3, 3016-3, 3024- 7, 3053-6 ####[facility] [address] [place] [id number] Basic metabolic 1998 panelOr dered By: Shade Vaz on 02-14-2021 Anion gap [Moles/Vol] 11 mmol/L 10 - 2 0 mmol/L [facility] Chloride [Moles/Vol] 104 mmol/L 98 - 10 8 mmol/L [facility] Creatinine [Mass/Vol] 0.94 mg/dL 0.40 - 1.10 [facility] GFR/1.73 sq M.predicted CKD-EPI (S/P/Bld) [Vol rate/Area] 79 >=60 mL/min/1.73 m2 [facility] Glucose [Mass/Vol] 88 mg/dL 65 - 99 mg/dL [facility] HCO3 [Moles/Vol] 27 mmol/L 21 - 32 mmol/L [facility] Interpretation and review of laboratory results Normal [facility] Potassium [Moles/Vol] 4.3 mmol/L 3.5 - 5.1 mmol/L [facility] Sodium [Moles/Vol] 138 mmol/L 135 - 145 mmol/L [facility] Urea nitrogen [Mass/Vol] 11 mg/dL 8 - 25 mg/dL [facility] Urea nitrogen/Creatinine [Mass ratio] 11.7 mg/mg [facility] The eGFR should be used for monitoring renal function only and not for medication dosing. [facility] Beta HCG ( test) Ql Ordered By: Shade Vaz on 02-14-2021 Interpretation and review of laboratory results Normal [facility] Negative: The result is less than or equal to 5 mIU/mL of HCG. [facility] CBC WITH AUTO DIFFERENTIALOr dered By: Shade Vaz on 02-14-2021 Basophils (Bld) [#/Vol] 0.04 10*3/uL [facility] Basophils/100 WBC (Bld) 0.5 % [facility] Eosinophils (Bld) [#/Vol] 0.19 10*3/uL [facility] Eosinophils/100 WBC (Bld) 2.5 % [facility] Erythrocyte distribution width (RBC) [Entitic vol] 11.8 % 11.6 - 14.8 % [facility] Hematocrit (Bld) [Volume fraction] 43.9 % 36.0 - 46.0 % [facility] Hemoglobin (Bld) [Mass/Vol] 14.8 g/dL 12.0 - 16.0 g/dL [facility] Immature granulocytes (Bld) [#/Vol] 0.02 10*3/uL [facility] Immature granulocytes/100 WBC (Bld) 0.30 % [facility] Comment on above: The IG parameter is the percentage of metamyelocytes, myelocytes and promyelocytes. An immature granulocyte count (IG) of 1% or more suggests the possibility of infection, an IG count of 3% is very likely related to an infection. Lymphocytes (Bld) [#/Vol] 1.66 10*3/uL [facility] Lymphocytes/100 WBC (Bld) 21.8 % [facility] MCH (RBC) [Entitic mass] 30.8 pg 26.0 - 34.0 pg [facility] MCHC (RBC) [Mass/Vol] 33.7 g/dL 31.0 - 37.0 g/dL [facility] MCV (RBC) [Entitic vol] 91.3 fL 80.0 - 100.0 fL [facility] Monocytes (Bld) [#/Vol] 0.71 10*3/uL [facility] Monocytes/100 WBC (Bld) 9.3 % [facility] Neutrophils (Bld) [#/Vol] 4.98 10*3/uL [facility] Neutrophils/100 WBC (Bld) 65.6 % [facility] Nucleated RBC (Bld) [#/Vol] 0.00 10*3/uL [facility] Nucleated RBC/100 WBC (Bld) [Ratio] 0.0 % [facility] Platelet mean volume (Bld) [Entitic vol] 9.8 fL 9.4 - 12.4 fL [facility] Platelets (Bld) [#/Vol] 285 10*3/uL [facility] RBC (Bld) [#/Vol] 4.81 10*6/uL [facility] ealth WBC (Bld) [#/Vol] 7.60 10*3/uL [facility] KIDNEY STONEOrdered By: Bhupendra Vaz on 02-14-2021 No acute process. No ureteral calculus. [facility] Workstation ID: [id number] [facility] EXAMINATION: CT KIDNEY STONE HISTORY: Flank pain. COMPARISON: No relevant prior study available at time of interpretation. TECHNIQUE: Axial CT images of the abdomen and pelvis were obtained without intravenous contrast. Multiplanar 2D reconstructed images were obtained and reviewed. Dose reduction techniques were achieved by using: automated exposure control and/or adjustment of mA and/or kV according to patient size and/or use of iterative reconstruction technique. FINDINGS: Please note that the sensitivity for detection of focal lesions or vascular disease is markedly reduced without intravenous contrast. Imaged lung bases: The imaged lung bases are clear. Liver/Gallbladder: The upper abdomen is not fully imaged. There is no convincing CT evidence for significant bile duct obstruction within constraint of noncontrast exam. No CT evidence for acute cholecystitis. Spleen: Normal-sized. Stomach: Partially distended and suboptimally evaluated. Pancreas: No abnormal/focal ductal dilation. Adrenal glands: Unremarkable bilaterally. Kidneys/ureters: No hydronephrosis, hydroureter, or ureteral calculus. Urinary bladder: The partially decompressed urinary bladder is suboptimally evaluated. Reproductive organs: The uterus is suboptimally evaluated. Please note that the adnexal structures are suboptimally evaluated on noncontrast CT. Bowel/appendix: The decompressed rectum is suboptimally evaluated on this exam. The decompressed portions of the large bowel loops are suboptimally evaluated on this exam. No bowel obstruction noted. No CT evidence of acute appendicitis. Peritoneum/retroper itoneum: There is no abscess or free air. There is no evidence of aortic aneurysm. No pathologically enlarged lymph nodes are visualized per CT size and morphological criteria. Soft tissue: Unremarkable. Bone: Multilevel degenerative disease. In the sagittal view, foraminal stenosis appears worst at the lumbosacral junction with at least moderate spinal canal stenosis. In the coronal view, no additional finding. [facility], Rad In [employer] - 02/14/2021 2:39 PM EDT EXAMINATION: CT KIDNEY STONE HISTORY: Flank pain. COMPARISON: No relevant prior study available at time of interpretation. TECHNIQUE: Axial CT images of the abdomen and pelvis were obtained without intravenous contrast. Multiplanar 2D reconstructed images were obtained and reviewed. Dose reduction techniques were achieved by using: automated exposure control and/or adjustment of mA and/or kV according to patient size and/or use of iterative reconstruction technique. FINDINGS: Please note that the sensitivity for detection of focal lesions or vascular disease is markedly reduced without intravenous contrast. Imaged lung bases: The imaged lung bases are clear. Liver/Gallbladder: The upper abdomen is not fully imaged. There is no convincing CT evidence for significant bile duct obstruction within constraint of noncontrast exam. No CT evidence for acute cholecystitis. Spleen: Normal-sized. Stomach: Partially distended and suboptimally evaluated. Pancreas: No abnormal/focal ductal dilation. Adrenal glands: Unremarkable bilaterally. Kidneys/ureters: No hydronephrosis, hydroureter, or ureteral calculus. Urinary bladder: The partially decompressed urinary bladder is suboptimally evaluated. Reproductive organs: The uterus is suboptimally evaluated. Please note that the adnexal structures are suboptimally evaluated on noncontrast CT. Bowel/appendix: The decompressed rectum is suboptimally evaluated on this exam. The decompressed portions of the large bowel loops are suboptimally evaluated on this exam. No bowel obstruction noted. No CT evidence of acute appendicitis. Peritoneum/retroper itoneum: There is no abscess or free air. There is no evidence of aortic aneurysm. No pathologically enlarged lymph nodes are visualized per CT size and morphological criteria. Soft tissue: Unremarkable. Bone: Multilevel degenerative disease. In the sagittal view, foraminal stenosis appears worst at the lumbosacral junction with at least moderate spinal canal stenosis. In the coronal view, no additional finding. IMPRESSION: No acute process. No ureteral calculus. [employer] Workstation ID: [id number] [facility] CT KIDNEY STONEon 02-14-2021 CT KIDNEY STONE EXAMINATION: CT KIDNEY STONE HISTORY: Flank pain. COMPARISON: No relevant prior study available at time of interpretation. TECHNIQUE: Axial CT images of the abdomen and pelvis were obtained without intravenous contrast. Multiplanar 2D reconstructed images were obtained and reviewed. Dose reduction techniques were achieved by using: automated exposure control and/or adjustment of mA and/or kV according to patient size and/or use of iterative reconstruction technique. FINDINGS: Please note that the sensitivity for detection of focal lesions or vascular disease is markedly reduced without intravenous contrast. Imaged lung bases: The imaged lung bases are clear. Liver/Gallbladder: The upper abdomen is not fully imaged. There is no convincing CT evidence for significant bile duct obstruction within constraint of noncontrast exam. No CT evidence for acute cholecystitis. Spleen: Normal-sized. Stomach: Partially distended and suboptimally evaluated. Pancreas: No abnormal/focal ductal dilation. Adrenal glands: Unremarkable bilaterally. Kidneys/ureters: No hydronephrosis, hydroureter, or ureteral calculus. Urinary bladder: The partially decompressed urinary bladder is suboptimally evaluated. Reproductive organs: The uterus is suboptimally evaluated. Please note that the adnexal structures are suboptimally evaluated on noncontrast CT. Bowel/appendix: The decompressed rectum is suboptimally evaluated on this exam. The decompressed portions of the large bowel loops are suboptimally evaluated on this exam. No bowel obstruction noted. No CT evidence of acute appendicitis. Peritoneum/retroper itoneum: There is no abscess or free air. There is no evidence of aortic aneurysm. No pathologically enlarged lymph nodes are visualized per CT size and morphological criteria. Soft tissue: Unremarkable. Bone: Multilevel degenerative disease. In the sagittal view, foraminal stenosis appears worst at the lumbosacral junction with at least moderate spinal canal stenosis. In the coronal view, no additional finding. IMPRESSION: No acute process. No ureteral calculus. [employer] Workstation ID: [id number] Dictated by: YURI NOLEN on [place] Feb 14, 2021 12:31:10 PM EDT Transcribed by: RICA CRAVEN on [place] Feb 14, 2021 12:33:35 PM EDT Finalized by: YURI NOLEN on MonFeb 14, 2021 2:36:37 PM EDT Normal [facility] Comment on above: Order Comment: Injur y/Trauma or Illness?:Illness/Other How long have you had these symptoms (acute/chronic)?:Acute Reason for exam?:Flank pain, kidney stone suspected Type of Exam?:Initial Additional signs and symptoms?:na HCG (QUALITATIVE)Ordered By: Shade Vaz on 02-14-2021 Beta HCG ( test) Ql Negative Negative [facility] No Panel InformationOrdered By: Julito Koehler on 02-14-2021 Extra Tube Hold for add-ons. [facility] Comment on above: Auto resulted. URINALYSISOrdered By: Shade Vaz on 02-14-2021 Bacteria Auto Ql (U) Rare Abnormal None Se en /hpf [facility] Clarity Refractometry automated (U) Clear Clear [facility] Color (U) Yellow Colorless, Yellow [facility] Glucose Auto test strip (U) [Mass/Vol] Negative Negative mg/dL [facility] Ketones (U) [Mass/Vol] Negative Negat margaret mg/dL [facility] Leukocyte esterase Auto test strip Ql (U) Moderate Abnormal Negative [facility] h pH (U) 7.0 [pH] [facility] Specific gravity (U) [Rel density] 1.021 [facility] UrinalysisOrdered By: Shade Vaz on 02-14-2021 Bilirubin Ql (U) Negative Negative [facility] Epithelial cells.squamous Auto (Urine sed) [#/Area] 12 High [facility] Hemoglobin Auto test strip Ql (U) Negative Negative [facility] Interpretation and review of laboratory results Abnormal [facility] Mucus Auto (Urine sed) [#/Area] Rare None Seen, Rare /lpf [facility] Nitrite Auto test strip Ql (U) Negative Negative [facility] Protein (U) [Mass/Vol] Negative Negat margaret mg/dL [facility] Transitional cells Computer assisted (U) [#/Area] <1 [facility] Urobilinogen (U) [Mass/Vol] mg/dL <2.0 mg/dL [facility] WBC Auto (Urine sed) [#/Area] 30 High [facility] Microscopic examination is performed on all urinalysis samples and only positive findings are reported. The test for blood on the chemical analytic portion of urinalysis may also be positive due to hemoglobinuria and myoglobinuria and if red blood cells are present they are quantified by microscopic examination. [facility] Basic Metabolic PanelOrdered By: Ana Ayala on 02-07-2021 Anion gap [Moles/Vol] 10 mmol/L 9 - 17 mmol/L [employer] Phone: Calcium [Mass/Vol] 9.0 mg/dL 8.6 - 10. 4 mg/dL [employer] Phone: Chloride [Moles/Vol] 105 mmol/L 98 - 10 7 mmol/L [employer] Phone: CO2 [Moles/Vol] 26 mmol/L 20 - 31 mmol/L [employer] Phone: Creatinine [Mass/Vol] 0.98 mg/dL High 0.50 - 0.90 mg/dL [employer] Phone: GFR >60 >60 mL/min [employer] Phone: GFR Non- >60 >60 mL/min [employer] Phone: GFR/1.73 sq M.predicted MDRD (S/P/Bld) [Vol rate/Area] [employer] Phone: Comment on above: Average GFR for 30-3 9 years old: 107 mL/min/1.73sq m Chronic Kidney Disease: <60 mL/min/1.73sq m Kidney failure: <15 mL/min/1.73sq m eGFR calculated using average adult body mass. Additional eGFR calculator available at: http://www.[employer].PureLiFi/multiple_crcl_2012.htm GFR/1.73 sq M.predicted MDRD (S/P/Bld) [Vol rate/Area] NOT REPORTED [employer] Phone: Glucose [Mass/Vol] 84 mg/dL 70 - 99 mg/dL [employer] Phone: Interpretation and review of laboratory results Abnormal [employer] Phone: Potassium [Moles/Vol] 4.0 mmol/L 3.7 - 5.3 mmol/L [facility] Work Phone: Sodium [Moles/Vol] 141 mmol/L 135 - 144 mmol/L [facility] Work Phone: Urea nitrogen (BldV) [Mass/Vol] 13 mg/dL 6 - 20 mg/dL [facility] Work Phone: Urea nitrogen/Creatinine (Bld) [Mass ratio] 13 [facility] Work Phone: Microscopic UrinalysisOrdere d By: Ana Ayala on 02-07-2021 - [facility] Work Phone: Amorphous, UA NOT REPORTED None [facility] Work Phone: Bacteria, UA None None [facility] Work Phone: Casts UA NOT REPORTED [facility] Work Phone: Crystals, UA NOT REPORTED None /HPF [facility] Work Phone: Epithelial Cells UA None [facility] Work Phone: Mucus, UA NOT REPORTED None [facility] Work Phone: Other Observations UA NOT REPORTED NOT REQ. [facility] Work Phone: RBC, UA 10 TO 25 [facility] Work Phone: Renal Epithelial, UA NOT REPORTED 0 /HPF [facility] Work Phone: Trichomonas, UA NOT REPORTED None [facility] Work Phone: WBC, UA 0 TO 4 [facility] Work Phone: Yeast, UA NOT REPORTED None [facility] Work Phone: Urinalysis Reflex to Culture Ordered By: Ana Ayala on 02-07-2021 Bilirubin Urine Negative NEGATIVE [facility] Work Phone: Color, UA NOT REPORTED YELLOW [employer] [facility] Work Phone: Glucose, Ur Negative NEGATIVE [facility] Work Phone: Interpretation and review of laboratory results Abnormal [facility] Work Phone: Ketones Ql (U) Negative NEGATIVE [facility] Work Phone: Leukocyte esterase Test strip Ql (U) Negative NEGATIVE [facility] Work Phone: Nitrite, Urine Negative NEGATIVE [employer] Work Phone: pH, UA 8.0 High [facility] Work Phone: Protein, UA Negative NEGATIVE [facility] Work Phone: Specific [place], UA 1.020 [employer] Work Phone: Turbidity UA NOT REPORTED [employer] Work Phone: Urinalysis Comments NOT REPORTED [facility] Work Phone: Urine Hgb 1+ Abnormal NEGATIVE [facility] Work Phone: Urobilinogen, Urine Normal Normal [facility] Work Phone: Magnesium RBC Levelon 2019 Magnesium (RBC) [Moles/Vol] 4.7 mg/dL Normal 4.0-6.4 [facility] Comment on above: Result Comment: This test was developed and its analytical performance characteristics have been determined by [employer] [facility]. It has not been cleared or approved by the US Food and Drug Administration. This assay has been validated pursuant to the CLIA regulations and is used for clinical purposes. @ Test Performed By: [employer] [facility] Chetan Khanna M.D., Bank Runner [address] [place] [id number] CLIA [id number] Performed By: #### C D:[id number] ####[facility] [address], [place]#### 64022-0, 18821-8, 04745-3, 3016-3, 3024-7, 2275-4, 8, 1988-12, 2132-06 ####[place] [address]#### 4549-2 ####[place] [address]#### CD:[id number], 2596-12 ####[facility], [address] [facility].[place], [place] T3 Reverseon 07-28-2020 T3.reverse [Mass/Vol] 14.1 Nanogram/dL Normal 9.0-27.0 [facility] Comment on above: Result Comment: This test was developed and its performance characteristics determined by [facility] in a manner consistent with CLIA requirements. This test has not been cleared or approved by the U.S. Food and Drug Administration. This test is used for patient testing purposes. It should not be regarded as investigational or for research. Test performed at [facility], [address] [place] [address] Andrzej Terrell MD - Can Dragger Performed By: #### 3 0341-2 ####[place] [address]#### 3051-0, 8098-6, 52848-6, 3052-8 ####[facility], [address], [place] 3 and 6 Fatty Acidson 07-27-2020 Arachidonic Acid 7.0 % Normal 5.2-12.9 [facility] Comment on above: Performed By: #### C D:[id number] ####[facility] [address], [place]#### 42533-4, 20425-6, 05667-0, 3016-3, 3024-7, 2275-4, 2283-8, 1988-12, 2132-06 ####[address] [address]#### 4549-2 ####[place] [address]#### CD:[id number], 2597-3 ####[facility], [address] [place], [place] DHA 1.4 % Normal 1.2-3.9 [facility] Comment on above: Result Comment: This test was developed and its analytical performance characteristics have been determined by [facility] [place]. It has not been cleared or approved by FDA. This assay has been validated pursuant to the CLIA regulations and is used for clinical purposes. The Cardio IQ(R) [place] 3 T 6 test will be discontinued April 15, 2019. Please consider changing any custom panels and custom requisitions now to prepare for the discontinuation. [facility] currently offers the OmegaCheck test (Test Code 05746) and it will be the only [place] test offering after the discontinuation of Cardio IQ [place] 3 T 6. Contact your Cardiovascular specialty territory account representative for assistance. Test Performed By: #### C D:[id number] ####[facility] [address], [place]#### 045[address]-8, 42764-1, 11942-4, 3016-3, 3024-7, 2276-4, 2283-8, 2132-06 ####[facility] [address] [place] [address]#### 4549-2 ####[address] [address]#### CD:[id number], 3 ####[facility], [address] [place], [place] EPA 0.2 % Normal 0.2-1.5 [facility] Comment on above: Performed By: #### C D:[id number] ####[facility] [address], [place]#### 67193-1, 26319-4, 54925-5, 3016-3, 3024-7, 2276-4, 2284-8, 1988-12, 2132-06 ####[facility] [address] [place] [address]#### 4549-2 ####[address] [address]#### CD:[id number], 2596-3 ####[facility], [address], [place] EPA/Arachidonic Acid Ratio <0.1 Normal [facility] Comment on above: Result Comment: Refe rence Range: 0.2 OR LESS Performed By: #### C D:[id number] ####[facility] [address], [place]#### 020[address]-8, 41172-5, 95441-2, 3016-3, 3024-7, 2276-4, 2284-8, 1988-12, 2132-06 ####[place] [address]#### 4549-2 ####[place] [address]#### CD:[id number], 2596-12 ####[facility], [address], [place] 6 fatty acids (w6)/[place] 3 fatty acids (w3) [Molar ratio] 19.1 Normal 5.7-21.3 [facility] Comment on above: Performed By: #### C D:[id number] ####[place] [address], [place]#### 93246-0, 55813-6, 20316-0, 3016-3, 3024-7, 2276-4, 2283-8, 1988-12, 2132-06 ####[address] [address]#### 4549-2 ####[address] [address]#### CD:[id number], 3 ####[facility], [address], [place]-3 (EPA+DHA) Index 1.6 % Normal 1.4-4.9 [facility] Comment on above: Result Comment: Risk : Optimal > 3.2% Moderate 2.2-3.2% High < 2.2% Cardiovascular event risk category cut points for Omega3 index (optimal, moderate, high) are based on quartiles of adult [place] reference population. Association between Omega3 index and cardiovascular events is based on Lauro et al. NEJM. 2002 346:1113. Performed By: #### C D:[id number] ####[facility] [address], [place]#### 32415-4, 62469-7, 65904-8, 3016-3, 3024-7, 2276-4, 2284-8, 1988-12, 2132-06 ####[facility] [address] [place] [address]#### 4549-2 ####[facility] [address] [place] [address]#### CD:[id number], 2596-12 ####[facility], [address], [place]-3 (EPA+DHA) Index Risk High Normal [facility] Comment on above: Result Comment: The [place]-3 index is associated with a high risk of cardiovascular disease because it is in the bottom population quartile. The [place]-3 index categories are based on the top (75th percentile) and bottom (25th percentile) quartiles of the reference population. Consumption of foods high in omega-3 fatty acids (EPA and DHA) or supplements containing omega-3 fatty acids can increase the omega-3 index. Index <2.2: High Index 2.2-3.2: Moderate Index >3.2: Optimal Performed By: #### C D:[id number] ####[facility] [address], [place]#### 10608-3, 81945-8, 70459-8, 3016-3, 3024-7, 2276-4, 2284-8, 1988-12, 2132-06 ####[facility] [address] [place] [address]#### 4549-2 ####[facility] [address] [place] [address]#### CD:[id number], 3 ####[facility], [address], [place] T3 (Triiodothyronine) Freeon 07-24-2020 Free T3 [Mass/Vol] 3.6 Picogram/ml Normal 2.3-4.2 [facility] Comment on above: Result Comment: Test performed at [facility], [address] [place] [address] Andrzej Terrell MD - Can Dragger Performed By: #### 3 0341-2 ####[place] [address]#### 3051-0, 8098-6, 32069-1, 3052-8 ####[facility], [facility] [address], [place] TPO Ab Qlon 07-24-2020 TPO Ab Qn [IU]/mL Normal <9 [facility] Comment on above: Result Comment: Test performed at [facility], [address] [place] [address] Andrzej Terrell MD - Can Dragger Performed By: #### 3 0341-2 ####[address] [address]#### 3051-0, 8098-6, 45694-8, 3052-8 ####[facility], [facility] [address], [place] Thyroglobulin Antibodyon Thyroglobulin Ab Qn [IU]/mL Normal <4 [facility] Comment on above: Result Comment: Acco rding to the reagent professor of art, consumption of biotin supplements, or multivitamins containing biotin, may interfere with the results of this assay. For individuals taking biotin- containing supplements, testing at least three days after cessation of supplement consumption is recommended. Test performed at [facility], [address] [place] [address] Andrzej Terrell MD - Can Dragger Performed By: #### 3 0341-2 ####[place] [address]#### 3051-0, 8098-6, 84314-1, 3052-8 ####[facility], [address], [place] CRP High sensitivity method (Bld) [Mass/Vol]on 07-23-2020 CRP High sensitivity method [Mass/Vol] 0.430 mg/dL Normal <0.748 [facility] Comment on above: Performed By: #### C D:[id number] #### [facility] [address] [place], [place] #### 74821-5, 07005-2, 20098-9, 3016-3, 3024-7, 2276-4, 2284-8, 1988-12, 2132-06 #### [place] [address] #### 4549-2 #### [place] [address] #### CD:[id number], 2596-12 #### [facility], [address], [place] Comprehensive metabolic 2000 panelon 07-23-2020 Albumin [Mass/Vol] 4.0 g/dL Normal 3.5-4.8 [facility] Comment on above: Performed By: #### C D:[id number] #### [facility] [address] [place], [place] #### 68635-8, 93857-7, 62846-2, 3016-3, 3024-7, 2276-4, 2283-8, 1988-12, 2132-06 #### [facility] [address] [place] [address] #### 4549-2 #### [address] [address] #### CD:[id number], 2596-12 #### [facility], [address], [place] ALP [Catalytic activity/Vol] 44 Units/L Normal 32-91 [facility] Comment on above: Performed By: #### C D:[id number] #### [facility] [address], [place] #### 21834-4, 29629-4, 51603-8, 3016-3, 3024-7, 2276-4, 2283-8, 1988-12, 2132-06 #### [facility] [address] [place] [address] #### 4549-2 #### [address] [address] #### CD:[id number], 2596-12 #### [facility], [address], [place] ALT [Catalytic activity/Vol] 16 Units/L Normal 14-63 [facility] Comment on above: Performed By: #### C D:[id number] #### [facility] [address] [place], [place] #### 87448-5, 75986-7, 51445-1, 6-3, 3024-7, 6-4, 2283-8, 1988-12, 2132-06 #### [address] [address] #### 4549-2 #### [address] [address] #### CD:[id number], 2596-12 #### [facility], [address], [place] Anion gap [Moles/Vol] 10.0 mmol/L Normal 6.0-18.0 [facility] Comment on above: Performed By: #### C D:[id number] #### [facility] [address] [place], [place] #### 98117-3, 56929-1, 28022-8, 3016-3, 3024-7, 2276-4, 2283-8, 1988-12, 2132-06 #### [facility] [address] [place] [address] #### 4549-2 #### [address] [address] #### CD:[id number], 2596-12 #### [facility], [address], [place] AST [Catalytic activity/Vol] 22 Units/L Normal 15-41 [facility] Comment on above: Performed By: #### C D:[id number] #### [facility] #### 08144-6, 23121-6, 62284-2, 3016-3, 3024-7, 2276-4, 2284-8, 1988-12, 2132-06 #### [place] [address] #### 4549-2 #### [place] [address] #### CD:[id number], 2596-12 #### [facility], [address], [place] Bilirubin [Mass/Vol] 0.3 mg/dL Normal 0.3-1.2 [facility] Comment on above: Performed By: #### C D:[id number] #### [facility] #### 84515-3, 27973-6, 30037-3, 3016-3, 3024-7, 2276-4, 2284-8, 1988-12, 2132-06 #### [address] [address] #### 4549-2 #### [address] [address] #### CD:[id number], 2596-12 #### [facility], [address], [place] Calcium [Mass/Vol] 9.1 mg/dL Normal 8.9-10.3 [facility] Comment on above: Performed By: #### C D:[id number] #### [facility] #### 69198-5, 30620-1, 81591-8, 3016-3, 3024-7, 2276-4, 2284-8, 1988-12, 2132-06 #### [facility] [place] [address] #### 4549-2 #### [place] [address] #### CD:[id number], 2596-12 #### [facility], [address], [place] Chloride [Moles/Vol] 108 mmol/L High 98-107 [facility] Comment on above: Performed By: #### C D:[id number] #### [facility] [address] [place], [place] #### 39608-2, 15913-7, 18563-4, 3016-3, 3024-7, 2276-4, 2283-8, 1988-12, 2132-06 #### [place] [address] #### 4549-2 #### [place] [address] #### CD:[id number], 2596-12 #### [facility], [address], [place] CO2 [Moles/Vol] 21 mmol/L Low 22-32 [facility] Comment on above: Performed By: #### C D:[id number] #### [facility] [address] [place], [place] #### 36059-4, 73762-0, 11607-7, 3016-3, 3024-7, 2276-4, 2283-8, 1988-12, 2132-06 #### [address] [address] #### 4549-2 #### [address] [address] #### CD:[id number], 2596-12 #### [facility], [address], [place] Creatinine [Mass/Vol] 0.88 mg/dL Normal 0.60-1.[address] [facility] Comment on above: Performed By: #### C D:[id number] #### [facility] [address], [place] #### 71567-1, 22030-0, 99277-2, 3016-3, 3024-7, 2276-4, 2283-8, 1988-12, 2132-06 #### [facility] [address] [place] [address] #### 4549-2 #### [facility] [address] [place] [address] #### CD:[id number], 2596-12 #### [facility], [facility].[place], [place] Glucose [Mass/Vol] 68 mg/dL Low 70-99 [facility] Comment on above: Result Comment: U pdated ADA Reference Range A normal fasting glucose concentration is less than 100 mg/dL. An impaired fasting glucose concentration is 100-125 mg/dL. A provisional diagnosis of diabetes mellitus can be made when a fasting glucose concentration is greater than 125 mg/dL. Performed By: #### C D:[id number] #### [facility] [address], [place] #### 64575-2, 22016-0, 90435-8, 6-3, 4-7, 6-4, 2283-8, 1988-12, 2132-06 #### [facility] [address] [place] [address] #### 4549-2 #### [facility] [address] [place] [address] #### CD:[id number], 2596-12 #### [facility], [facility] [address] .[place], [place] Potassium [Moles/Vol] 4.0 mmol/L Normal 3.6-5.[address] [facility] Comment on above: Performed By: #### C D:[id number] #### [facility] [address], [place] #### 95879-9, 25600-2, 10717-1, 3016-3, 3024-7, 2276-4, 2284-8, 1988-12, 2132-06 #### [facility] [address] [place] [address] #### 4549-2 #### [address] [address] #### CD:[id number], 2596-12 #### [facility], [address], [place] Protein [Mass/Vol] 7.0 g/dL Normal 6.1-7.9 [facility] Comment on above: Performed By: #### C D:[id number] #### [facility] #### 73091-3, 39287-8, 76714-2, 3016-3, 3024-7, 6-4, 2283-8, 1988-12, 2132-06 #### [address] [address] #### 4549-2 #### [address] [address] #### CD:[id number], 2596-12 #### [facility], [address], [place] Sodium [Moles/Vol] 139 mmol/L Normal 136-145 [facility] Comment on above: Performed By: #### C D:[id number] #### [place] [address] [place], [place] #### 76746-6, 38865-5, 52153-3, 3016-3, 3024-7, 2276-4, 2283-8, 1988-12, 2132-06 #### [facility] [address] [place] [address] #### 4549-2 #### [address] [place] [address] #### CD:[id number], 2597-3 #### [facility], [address], [place] Urea nitrogen (BldV) [Mass/Vol] 13 mg/dL Normal 8-20 [facility] Comment on above: Performed By: #### C D:[id number] #### [facility] [address], [place] #### 60066-6, 71254-3, 14133-6, 3016-3, 3024-7, 2276-4, 2284-8, 1988-3, 2132-9 #### [address] [address] #### 4549-2 #### [place] [address] #### CD:[id number], 2596-3 #### [facility], [facility] [address], [place] Culture Urine + Susceptibili tyon 07-23-2020 Bacteria identified Cx Nom (U) [facility] Microbiology PROCEDURE: Culture Urine + Susceptibility SOURCE: Urine BODY SITE: COLLECTED DATE/TIME: 07/22/2020 22:03 EDT RECEIVED DATE/TIME: 07/22/2020 22:03 EDT START DATE/TIME: 07/22/2020 22:03 EDT FREE TEXT SOURCE: URINE INTERFACED REPORTS Final Report [] Verified Date/Time/Personnel : 07/24/2020 04:32 EDT CONTRIBUTOR_SYSTEM, CO_PN ORGANISMS USUALLY ASSOCIATED WITH VAGINAL,URETHRAL, AND/OR SKIN CONTAMINATION PRESENT. Normal [facility] Comment on above: Performed By: #### 5 8077-9, 34246-7 ####[facility] [address] [place] [address]#### 630-4 ####[facility] [address] [place], [place] Ferritin Levelon 07-23-2020 Ferritin [Mass/Vol] 37 ng/mL Normal 11-336 [facility] Comment on above: Performed By: #### C D:[id number] #### [facility] [address], [place] #### 19882-7, 35959-8, 08679-7, 3016-3, 3024-7, 2276-4, 2284-8, 1988-, 2132-06 #### [facility] [address] [place] [address] #### 4549-2 #### [facility] [address] [place] [address] #### CD:[id number], 2596-12 #### [facility], [address], [place] Folic Acid Levelon 0 Folate [Mass/Vol] ng/mL Normal >4.0 [facility] Comment on above: Result Comment: The World Health Organization Technical Consultation on folate and vitamin B12 deficiencies has determined that deficient folate concentrations are considered to be less than 4 ng/ml New Folate reference range = greater than 4 ng/ml Performed By: #### C D:[id number] ####[facility] [address], [place]#### 93944-2, 91015-0, 80986-0, 3016-3, 3024-7, 2276-4, 2284-8, 1988-12, 2132-06 ####[facility] [address] [place] [address]#### 4549-2 ####[facility] [address] [place] [address]#### CD:[id number], 2596-12 ####[facility], [address], [place] HbA1c Elph (Bld) [Mass fract ion]on 07-23-2020 HbA1c (Bld) [Mass fraction] 5.1 % tl hgb Normal <5.6 [facility] Comment on above: Result Comment: U pdated ADA Reference Range HbA1c values of 5.7-6.4 percent indicate an increased risk for developing diabetes mellitus. HbA1c values greater than or equal to 6.5 percent are diagnostic of diabetes mellitus. For diagnosis of diabetes in individuals without unequivocal hyperglycemia, results should be confirmed by repeat testing. Performed By: #### C D:[id number] ####[facility] [address] [place], [place]#### 07403-1, 26435-9, 50546-2, 3016-3, 3024-7, 2276-4, 2284-8, 1988-12, 2132-06 ####[address] [address]#### 4549-2 ####[address] [address]#### CD:[id number], 2596-12 ####[facility], [address], [place] Hemogram and platelets WO di fferential panel (Bld)on 07-23-2020 Erythrocyte distribution width (RBC) [Entitic vol] 12.8 % Normal 11.0-14.8 [facility] Comment on above: Performed By: #### C D:[id number] #### [address] #### 87178-0, 10679-0, 02622-9, 3016-3, 3024-7, 2275-4, 2283-8, 1988-12, 2132-06 #### [address] [address] #### 4549-2 #### [address] [address] #### CD:[id number], 2596-12 #### [facility], [address], [place] Hematocrit (Bld) [Volume fraction] 43.2 % Normal 35.0-45.0 [facility] Comment on above: Performed By: #### C D:[id number] #### [address] #### 62714-4, 78099-4, 25205-3, 3016-3, 3024-7, 2276-4, 2284-8, 1988-12, 2132-06 #### [place] [address] #### 4549-2 #### [place] [address] #### CD:[id number], 2596-12 #### [facility], [address] [place], [place] Hemoglobin (Bld) [Mass/Vol] 14.4 g/dL Normal 12.0-16.0 [facility] Comment on above: Performed By: #### C D:[id number] #### [address] #### 05730-9, 96128-9, 30642-6, 3016-3, 3024-7, 2276-4, 2283-8, 1988-12, 2132-06 #### [place] [address] #### 4549-2 #### [place] [address] #### CD:[id number], 2596-12 #### [facility], [facility] W [place].[place], [place] MCH (RBC) [Entitic mass] 30.7 Picograms Normal 27.0-34.0 [facility] Comment on above: Performed By: #### C D:[id number] #### [place] [address] [place], [place] #### 37763-1, 96600-3, 83364-8, 3016-3, 3024-7, 2276-4, 228-8, 1988-12, 2132-06 #### [place] [address] #### 4549-2 #### [place] [address] #### CD:[id number], 2596-12 #### [facility], [address], [place] MCHC (RBC) [Mass/Vol] 33.2 g/dL Normal 32.0-36.[address] [facility] Comment on above: Performed By: #### C D:[id number] #### [facility] [address] [place], [place] #### 82116-5, 67440-7, 20346-6, 3016-3, 3024-7, 2276-4, 2283-8, 1988-12, 2132-06 #### [place] [address] #### 4549-2 #### [place] [address] #### CD:[id number], 2596-12 #### [facility], [address], [place] MCV (RBC) [Entitic vol] 92.6 fL Normal 80.0-97.0 [facility] Comment on above: Performed By: #### C D:[id number] #### [facility] #### 58187-4, 34009-7, 62323-5, 6-3, 4-7, 2275-4, 2283-8, 1988-12, 2132-06 #### [address] [address] #### 4549-2 #### [address] [address] #### CD:[id number], 2596-12 #### [facility], [address], [place] Platelet mean volume (Bld) [Entitic vol] 10.0 fL Normal 6.2-12.1 [facility] Comment on above: Performed By: #### C D:[id number] #### [address] #### 27524-1, 04039-9, 56217-5, 3016-3, 3024-7, 2276-4, 2284-8, 1988-, 2131-9 #### [facility] [address] [place] [address] #### 4549-2 #### [facility] [address] [place] [address] #### CD:[id number], 259-3 #### [facility], [address], [place] Platelets (Bld) [#/Vol] 272 thou/mcL Normal 142-424 [facility] Comment on above: Performed By: #### C D:[id number] #### [facility] [address] [place], [place] #### 19801-4, 82535-6, 63808-1, 3016-3, 3024-7, 2276-4, 2284-8, 1988-12, 2132-06 #### [facility] [address] [place] [address] #### 4549-2 #### [facility] [address] [place] [address] #### CD:[id number], 2596-12 #### [facility], [address], [place] RBC (Bld) [#/Vol] 4.67 million/mcL Normal 3.80-5.10 [facility] Comment on above: Performed By: #### C D:[id number] #### [facility] [address], [place] #### 63957-9, 92451-3, 35203-0, 3016-3, 3024-7, 2276-4, 2284-8, 1988-12, 2132-06 #### [facility] [address] [place] [address] #### 4549-2 #### [facility] [address] [place] [address] #### CD:[id number], 3 #### [facility], [address], [place] WBC (Bld) [#/Vol] 7.5 thou/mcL Normal 4.6-10.2 [facility] Comment on above: Performed By: #### C D:[id number] #### [place] [address] [place], [place] #### 71854-9, 08675-2, 68054-3, 3016-3, 3024-7, 2276-4, 2284-8, 1988-3, 2132-9 #### [place] [address] #### 4549-2 #### [place] [address] #### CD:[id number], 2597-3 #### [facility], [address] [place], [place] Microscopic method Nom (U)on 07-23-2020 Epithelial cells.squamous LM.HPF (Urine sed) [#/Area] RARE Normal FEW/LPF [facility] Comment on above: Performed By: #### 5 8077-9, 17909-2 ####[address] [address]#### 630-4 ####[address] Mucus Ql (Urine sed) RARE Abnormal NONE/LPF [facility] Comment on above: Performed By: #### 5 8077-9, 74899-0 ####[address] [address]#### 630-4 ####[place] [address] [place], [place] RBC LM.HPF (Urine sed) [#/Area] 1 /[HPF] Normal 0-5 [facility] Comment on above: Performed By: #### 5 8077-9, 43857-3 ####[address] [address]#### 630-4 ####[place] [address] [place], [place] WBC LM.HPF (Urine sed) [#/Area] 2 /[HPF] Normal 0-5 [facility] Comment on above: Performed By: #### 5 8077-9, 32694-7 ####[place] [address]#### 630-4 ####[address] Sedimentation Rate rbcon ESR (Bld) [Velocity] 15 mm/h Normal 0-20 [facility] Comment on above: Performed By: #### 3 0341-2 ####[place] [address]#### 3051-0, 8098-6, 75110-0, 3052-8 ####[facility], [address] [place], [place] T4 (Thyroxine) Freeon 2019 Free T4 [Mass/Vol] 0.8 Nanogram/dL Normal 0.6-1.6 [facility] Comment on above: Performed By: #### C D:[id number] #### [address] #### 17400-5, 87168-8, 43754-9, 3016-3, 3024-7, 2276-4, 2284-8, 1989-3, 2132-9 #### [place] [address] #### 4549-2 #### [place] [address] #### CD:[id number], 2597-3 #### [facility], [address], [place] TSH Qnon 07-23-2020 TSH Qn (Bld) 1.27 mcIU/mL Normal 0.45-5.33 [facility] Comment on above: Performed By: #### C D:[id number] #### [address] #### 68091-5, 34084-1, 88980-6, 3016-3, 3024-7, 2276-4, 2284-8, 1989-3, 2132-9 #### [place] [address] #### 4549-2 #### [place] [address] #### :[id number], 2597-3 #### [facility], [address] [place], [place] Urinalysis complete W Reflex Culture panel (U)on 07-23-2020 Appearance (U) CLEAR Normal CLEAR [facility] Comment on above: Performed By: #### 5 8077-9, 76178-5 ####[place] [address]#### 630-4 ####[place] [address] [place], [place] Bilirubin (U) [Mass/Vol] Negative Normal NEGATIVE-NEG [facility] Comment on above: Performed By: #### 5 8077-9, 25627-0 ####[address] [address]#### 630-4 ####[place] [address] [place], [place] Color (U) YELLOW Normal YELLOW [facility] Comment on above: Performed By: #### 5 8077-9, 64327-8 ####[address] [address]#### 630-4 ####[place] [address] [place], [place] Glucose Test strip (U) [Mass/Vol] NORMAL Normal NORMAL [facility] Comment on above: Performed By: #### 5 8077-9, 01421-2 ####[address] [address]#### 630-4 ####[place] [address] [place], [place] Hemoglobin Ql (U) 10/UL Abnormal NEGATIVE-N EG ATIVE [facility] Comment on above: Performed By: #### 5 8077-9, 80272-5 ####[address] [address]#### 630-4 ####[address] Ketones (U) [Mass/Vol] Negative Normal NEGAT MARGARET-NEG ATIVE [facility] Comment on above: Performed By: #### 5 8077-9, 79259-1 ####[place] [address]#### 630-4 ####[address] Leukocyte esterase Test strip Ql (U) 25/UL Abnormal NEGATIVE-NEG ATIVE [facility] Comment on above: Performed By: #### 5 8077-9, 52960-7 ####[place] [address]#### 630-4 ####[address] Nitrite Test strip (U) [Mass/Vol] Negative Normal NEGATIVE-NEG ATIVE [facility] Comment on above: Performed By: #### 5 8077-9, 26894-7 ####[address] [address]#### 630-4 ####[address] pH (U) 5.0 [pH] Normal 4.5-8.0 [facility] Comment on above: Performed By: #### 5 8077-9, 69859-4 ####[address] [address]#### 630-4 ####[address] Protein (U) [Mass/Vol] 30 mg/dL Abnormal NEGAT MARGARET-NEG ATIVE [facility] Comment on above: Performed By: #### 5 8077-9, 86894-0 ####[address] [place] [address]#### 630-4 ####[facility] [address] [place], [place] Specific gravity (U) [Rel density] 1.025 Normal 1.002-1.030 [facility] Comment on above: Performed By: #### 5 8077-9, 32803-2 ####[address] [address]#### 630-4 ####[facility] [address] [place], [place] Urobilinogen (U) [Mass/Vol] NORMAL Normal NORMAL [facility] Comment on above: Performed By: #### 5 8077-9, 02296-5 ####[address] [address]#### 630-4 ####[place] [address] [place], [place] Vitamin B12 Levelon 07-23-20 20 Cobalamin (Vitamin B12) [Mass/Vol] 314 Picogram/ml Normal 180-914 [facility] Comment on above: Performed By: #### C D:[id number] ####[place] [address] [place], [place]#### 15006-8, 03554-6, 26277-0, 3016-3, 3024-7, 2276-4, 2284-8, 1989-3, 2132-9 ####[address] [address]#### 4549-2 ####[address] [address]#### CD:[id number], 2597-3 ####[facility], [address], [place], [place] Vitamin D 25 Hydroxy Levelon 07-23-2020 25-hydroxyvitamin D3 [Mass/Vol] 62 ng/mL Normal 30-100 [facility] Comment on above: Result Comment: NEW METHOD AND INTERPRETIVE DATA Vitamin D Status Range ------ Deficiency <20 ng/mL(50 nmol/L) Insufficiency 20-30 ng/mL(50-75 nmol/L) Sufficiency 30-100 ng/mL(75-250 nmol/L) Toxicity >100 ng/mL (250 nmol/L) Performed By: #### C D:[id number] ####[facility] [address] [place], [place]#### [address]-7, 09434-0, 19319-7, 3016-3, 3024-7, 2276-4, 2284-8, 1988-12, 2132-06 ####[facility] [address] [place] [address]#### 4549-2 ####[address] [address]#### CD:[id number], 2596-12 ####[facility], [address] Panelon 06-25 Relevant diagnostic tests/laboratory data Narrative COMPLETE Normal [facility] Comment on above: Performed By: #### C D:[id number] #### [facility] [address] [place], [place] #### [address]32[address]-1, 28016-4, 88394-3, 3016-3, 3024-7, 2276-4, 2283-8, 1988-12, 2132-06 #### [facility] [address] [place] [address] #### 4549-2 #### [address] [address] #### CD:[id number], 2596-12 #### [facility], [address] Pelvis Non-OB Completeon 06-26-2020 US Pelvis EXAMINATION TYPE: TRANSABDOMINAL AND TRANSVAGINAL PELVIC ULTRASOUND DATE OF EXAM : 06/26/2020 12:25 PM HISTORY: menorrhagia, COMPARISON: NONE FINDINGS: The uterus is retroverted and measures 8.8 x 3.7 x 3.2 cm. No uterine mass is identified. The endometrial stripe width is 5.4 mm. The right ovary is 2.2 x 1.7 x 1 cm and the left ovary is 2 x 2.1 x 1.3 cm. No adnexal mass identified. No free fluid identified. IMPRESSION: Normal pelvic ultrasound. [facility] thanks you for the opportunity to care for your patient. Workstation ID: [id number] - [id number] FINAL REPORT Dictated By: Jaron Anna MD 06/26/2020 13:09 Assigned Physician: Jaron Anna MD Reviewed and Electronically Signed By: Jaron Anna MD 06/26/2020 13:11 Transcribed by: IVÁN 06/26/2020 13:09 Technologist: NELLY [facility] US Transvaginalon 06-26-2020 US Pelvis transabdominal and transvaginal EXAMINATION TYPE: TRANSABDOMINAL AND TRANSVAGINAL PELVIC ULTRASOUND DATE OF EXAM : 06/26/2020 12:25 PM HISTORY: menorrhagia, COMPARISON: NONE FINDINGS: The uterus is retroverted and measures 8.8 x 3.7 x 3.2 cm. No uterine mass is identified. The endometrial stripe width is 5.4 mm. The right ovary is 2.2 x 1.7 x 1 cm and the left ovary is 2 x 2.1 x 1.3 cm. No adnexal mass identified. No free fluid identified. IMPRESSION: Normal pelvic ultrasound. Wood thanks you for the opportunity to care for your patient. Workstation ID: [id number] - [id number] FINAL REPORT Dictated By: Jaron Anna MD 06/26/2020 13:09 Assigned Physician: Jaron Anna MD Reviewed and Electronically Signed By: Jaron Anna MD 06/26/2020 13:11 Transcribed by: IVÁN 06/26/2020 13:09 Technologist: NELLY [facility] SARS-related CoV+MERS michael virus RNA VIRAL+probe Ql (Resp)on 05-27-2020 SARS-CoV-2 (COVID-19) RNA VIRAL+probe Ql (Resp) Not detected Normal NOTDET [facility] Comment on above: Result Comment: This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 Care - [facility]. (MonFeb 01, 2019 10:23 SFH1) Urgent Care - [facility] to [facility] 05. (MonFeb 01, 2019 10:26 VLR) Urgent Care - [facility] to [facility] 04. (MonFeb 01, 2019 10:26 CSS5) [facility] Care - [facility] to [facility] 05. (MonFeb 01, 2019 10:26 CSS5) Removed from [place] [id number]. (MonFeb 01, 2019 10:51 VLR) NURSING PROCEDURE: DISCHARGE NOTE (MonFeb 01, 2019 10:51 VLR) DISCHARGE: Patient discharged to home, ambulating without assistance, driving self, unaccompanied, Summary of Care printed/ provided, Discharge instructions given to patient, Simple or moderate discharge teaching performed, Prescriptions given and instructions on side effects given, Above person(s) verbalized understanding of discharge instructions and follow-up care, Patient treated and evaluated by physician. TIME: No Barriers to Learning, Explained DCI, Handouts given for DCI, Patient Receptive to DCI, Cooperative with DCI. NURSING PROCEDURE: NURSE NOTES (MonFeb 01, 2019 10:28 MED2) NURSES NOTES: Notes: pt ambulates to room 5 c/o sore throat, sinus congestion, and fever onset yesterday. VITAL SIGNS: BP: 140/77, Pulse: 102, Resp: 18, Temp: 98.5, Pain: 4, O2 sat: 95, Time: 02/01/2019 10:28. DIAGNOSIS (MonFeb 01, 2019 10:38 FINK) FINAL: PRIMARY: UNS ASTHMA W/ACUTE EXACERBATION. DISPOSITION PATIENT: Disposition: 01 Home or Self Care, Disposition Transport: Drive-Self, Condition: GOOD. (MonFeb 01, 2019 10:38 FINK) Patient left the department. (MonFeb 01, 2019 10:51 VLR) INSTRUCTION (MonFeb 01, 2019 10:48 FINK) DISCHARGE: ASTHMA - WITH INHALER. FOLLOWUP: DOCTOR, NON-STAFF, , Follow up with Primary Care Physician as needed. PRESCRIPTION (MonFeb 01, 2019 10:46 FINK) PredniSONE: Tablet : 10 mg : Oral : Quantity: 5 Unit: tab(s). Route: oral. Schedule: DAILY. Dispense: 25 May substitute. Refills: No Refills POTENTIAL MODERATE INTERACTION: Seasonale [ethinyl estradiol] Override Rationale: Benefits outweigh risks. POTENTIAL MINOR INTERACTION: Advair Diskus [salmeterol] Override Rationale: Benefits outweigh risks. POTENTIAL MINOR INTERACTION: Albuterol [albuterol] Override Rationale: Benefits outweigh risks. Notes: , No Refills May fill with generic unless noted GISSELL. Amoxicillin: Tablet : 875 Mg : Oral : Quantity: 1 Unit: tab. Route: Oral. Schedule: twice a day. Dispense: 20 May substitute. Refills: No Refills POTENTIAL MODERATE INTERACTION: Seasonale [ethinyl estradiol] Override Rationale: Low risk of interaction. Notes: , No Refills May fill with generic unless noted GISSELL. ADMIN DIGITAL SIGNATURE: YEE Sparrow Vicki L. (MonFeb 01, 2019 12:17 VLR) Shelley Riddle (MonFeb 01, 2019 17:38 [facility]) MD Chau Kevin. (MonFeb 01, 2019 17:47 FINK) YEE Garner Melissa E. (MonFeb 10, 2019 15:21 MED2) PATIENT DATA CHANGE: Attending changed from (none) to Shade Chau MD. (MonFeb 01, 2019 10:23 FINBhupendra) Technical Trainer changed from (none) to VICENTE Tucker. (MonFeb 01, 2019 10:26 CSS5) Primary Nurse changed from (none) to Marilee Garner LPN. (MonFeb 01, 2019 10:27 MED2) Warner: CSS5=VICENTE Hester, Sandra RAMOS=MD Isac, Shade MED2=YEE Garner, Marilee Villegas SFH1=Shelley Riddle VLR=YEE Sparrow Vicki L. [facility] Anion gap 3 molar conc 16 mmol/L Invalid Interpretation Code 10 - 20 mmol/L [facility] Calcium mass conc 8.9 mg/dL Invalid Interpretation Code 8.4 - 10.2 mg/dL [facility] Chloride molar conc 104 mmol/L Invalid Interpretation Code 98 - 108 mmol/L [facility] Creatinine mass conc 0.84 mg/dL Invalid Interpretation Code 0.4 - 1.1 mg/dL [facility] GFR/1.73 sq M predicted among non-blacks MDRD vol rate/area (S/P/Bld) The eGFR should be used for monitoring renal function only and not for medication dosing. Invalid Interpretation Code [facility] GFR/1.73 sq M.predicted CKD-EPI vol rate/area (S/P/Bld) 92 mL/min/1.73 m2 Invalid Interpretation Code >=60 [facility] GFR/1.73 sq M.predicted CKD-EPI vol rate/area (S/P/Bld) 106 mL/min/1.73 m2 Invalid Interpretation Code >=60 [facility] Glucose mass conc 88 mg/dL Invalid Interpretation Code 65 - 99 mg/dL [facility] HCO3 molar conc 23 mmol/L Invalid Interpretation Code 21 - 32 mmol/L [facility] Potassium molar conc 3.9 mmol/L Invalid Interpretation Code 3.5 - 5.1 mmol/L [facility] Sodium molar conc 139 mmol/L Invalid Interpretation Code 135 - 145 mmol/L [facility] Urea nitrogen mass conc 10 mg/dL Invalid Interpretation Code 8 - 25 mg/dL [facility] Urea nitrogen/Creatinine mass ratio 11.9 mg/mg Invalid Interpretation Code 10.0 - 20.0 [facility] CBC Auto Differentialon 05-23 Basophils Auto #/vol (Bld) 0.04 K/mcL Invalid Interpretation Code 0.00 - 0.30 [facility] Basophils/100 WBC Auto (Bld) 0.4 % Invalid Interpretation Code [facility] Eosinophils Auto #/vol (Bld) 0.20 K/mcL Invalid Interpretation Code 0.00 - 0.50 [facility] Eosinophils/100 WBC Auto (Bld) 2.2 % Invalid Interpretation Code [facility] Erythrocyte distribution width Auto Entitic volume (RBC) 12.2 % Invalid Interpretation Code 11.6 - 14.8 % [facility] Hematocrit Auto Volume Fraction (Bld) 41.0 % Invalid Interpretation Code 36 - 46 % [facility] Hemoglobin mass conc (Bld) 13.9 g/dL Invalid Interpretation Code 12 - 16 g/dL [facility] Immature granulocytes #/vol (Bld) 0.03 K/mcL Invalid Interpretation Code 0.00 - 0.30 [facility] Immature granulocytes/100 WBC (Bld) 0.30 % Invalid Interpretation Code [facility] Comment on above: The IG parameter is the percentage of metamyelocytes, myelocytes, and promyelocytes. Lymphocytes Auto #/vol (Bld) 2.10 K/mcL Invalid Interpretation Code 0.90 - 4.00 [facility] Lymphocytes/100 WBC Auto (Bld) 23.0 % Invalid Interpretation Code [facility] MCH Auto Entitic mass (RBC) 30.0 pg Invalid Interpretation Code 26 - 34 pg [facility] MCHC Auto mass conc (RBC) 33.9 g/dL Invalid Interpretation Code 31 - 37 g/dL [facility] MCV Auto Entitic volume (RBC) 88.4 fL Invalid Interpretation Code 80 - 100 fL [facility] Monocytes Auto #/vol (Bld) 0.84 K/mcL Invalid Interpretation Code 0.30 - 0.90 [facility] Monocytes/100 WBC Auto (Bld) 9.2 % Invalid Interpretation Code [facility] Neutrophils Auto #/vol (Bld) 5.92 K/mcL Invalid Interpretation Code 1.70 - 7.00 [facility] Neutrophils/100 WBC Auto (Bld) 64.9 % Invalid Interpretation Code [facility] Nucleated RBC #/vol (Bld) 0.00 K/mcL Invalid Interpretation Code 0.00 - 0.00 [facility] Nucleated RBC/100 WBC Ratio (Bld) 0.0 % Invalid Interpretation Code [facility] Platelet mean volume Auto Entitic volume (Bld) 10.0 fL Invalid Interpretation Code 9 - 15.5 fL [facility] Platelets Auto #/vol (Bld) 295 K/mcL Invalid Interpretation Code 150 - 400 [facility] RBC Auto #/vol (Bld) 4.64 M/mcL Invalid Interpretation Code 4.00 - 5.20 [facility] WBC Auto #/vol (Bld) 9.13 K/mcL Invalid Interpretation Code 4.50 - 11.00 [facility] CBC w/ Diffon 06-06-2018 CBC w/ Diff The following orders were created for panel order CBC w/ Diff. Procedure Abnormality Status --------- ------ CBC Auto Differential[[id number]] Final result Please view results for these tests on the individual orders. Invalid Interpretation Code [facility] Srinivasan Topon 06-06-2018 Extra Tube Hold for add-ons. Invalid Interpretation Code [facility] Comment on above: Auto resulted. [place] Topon 06-06-2018 [place] Top Invalid Interpretation Code [facility] [place] Drawon 06-06-2018 [place] Draw The following orders were created for panel order [place] Draw. Procedure Abnormality Status --------- ------ Gold Top[[id number]] Final result Light Blue Top[[id number]] Final result Srinivasan Top[[id number]] Final result [place] Top[[id number]] Final result Please view results for these tests on the individual orders. Invalid Interpretation Code [facility] US Renal and Bladderon 06-06 US Renal and Bladder Sonographic appearance of the kidneys and bladder is within normal limits. No hydronephrosis. [employer] Workstation ID: [id number] Invalid Interpretation Code untapt [facility] US Renal and Bladder EXAMINATION: US RENAL AND BLADDER HISTORY: ORDERING SYSTEM PROVIDED HISTORY: right flank pain, young female, history of kidney stones, TECHNOLOGIST PROVIDED HISTORY: Reason for exam: flank pain, hx of stones Illness/Other Cancer History: unk Surgery, RadiationHistory: unk Encounter Type: Initial Additional signs and symptoms: n/a ORDERING SYSTEM PROVIDED DIAGNOSIS CODES: COMPARISON: None. TECHNIQUE: Ultrasound imaging of the kidneys and bladder was performed. FINDINGS: Right kidney measures approximately 9.5 x 4.7 x 3.8 cm. No hydronephrosis. Vascular flow is noted to the kidney. The left kidney measures approximately 10.6 x 4.9 x 5.1 cm. Note that portions of the lower pole are obscured by shadowing. No hydronephrosis. Vascular flow is noted to the kidney. Bladder is partially distended with urine. No focal abnormality identified. Invalid Interpretation Code [facility] [facility] Renal and Bladder Interface, Rad In [facility] - 06/06/2018 5:48 PM EDT EXAMINATION: US RENAL AND BLADDER HISTORY: ORDERING SYSTEM PROVIDED HISTORY: right flank pain, young female, history of kidney stones, TECHNOLOGIST PROVIDED HISTORY: Reason for exam: flank pain, hx of stones Illness/Other Cancer History: unk Surgery, RadiationHistory: unk Encounter Type: Initial Additional signs and symptoms: n/a ORDERING SYSTEM PROVIDED DIAGNOSIS CODES: COMPARISON: None. TECHNIQUE: Ultrasound imaging of the kidneys and bladder was performed. FINDINGS: Right kidney measures approximately 9.5 x 4.7 x 3.8 cm. No hydronephrosis. Vascular flow is noted to the kidney. The left kidney measures approximately 10.6 x 4.9 x 5.1 cm. Note that portions of the lower pole are obscured by shadowing. No hydronephrosis. Vascular flow is noted to the kidney. Bladder is partially distended with urine. No focal abnormality identified. IMPRESSION: Sonographic appearance of the kidneys and bladder is within normal limits. No hydronephrosis. [employer] Workstation ID: [id number] Invalid Interpretation Code [facility] Urinalysison 06-06-2018 Bacteria Auto Ql (U) None Seen Invalid Interpretation Code None Seen /hpf [facility] Bilirubin Ql (U) Negative Invalid Interpretation Code Negative [facility] Clarity Refractometry automated Nom (U) Clear Invalid Interpretation Code Clear [facility] Color Auto Nom (U) Colorless Invalid Interpretation Code Colorless, Yellow [facility] Epithelial cells.squamous Auto #/area (Urine sed) <1 Invalid Interpretation Code 0 - 4 /hpf [facility] Glucose Automated test strip mass conc (U) Negative Invalid Interpretation Code Negative mg/dL [facility] Hemoglobin Automated test strip Ql (U) Small Abnormal Negative [facility] Interpretation and review of laboratory results Abnormal Invalid Interpretation Code [facility] Ketones mass conc (U) Negative Invalid Interpretation Code Negative mg/dL [facility] Leukocyte esterase Automated test strip Ql (U) Small Abnormal Negative [facility] Nitrite Automated test strip Ql (U) Negative Invalid Interpretation Code Negative [facility] pH Test strip (U) 5.0 [pH] Invalid Interpretation Code 5.0 - 7.0 [facility] Protein mass conc (U) Negative Invalid Interpretation Code Negative mg/dL [facility] RBC Auto #/area (Urine sed) 1 /hpf Invalid Interpretation Code 0 - 3 [facility] Specific gravity Automated test strip Relative Density (U) 1.004 1 Low 1.005 - 1.025 [facility] Transitional cells Computer assisted #/area (U) <1 Invalid Interpretation Code 0 - 1 /hpf [facility] Urobilinogen Test strip Qn (U) <2.0 Invalid Interpretation Code <2.0 mg/dL [facility] WBC Auto #/area (Urine sed) 6 /hpf High 0 - 5 [facility] Urinalysis Microscopic examination is performed on all urinalysis samples and only positive findings are reported. The test for blood on the chemical analytic portion of urinalysis may also be positive due to hemoglobinuria and myoglobinuria and if red blood cells are present they are quantified by microscopic examination. Invalid Interpretation Code [facility] Urine Pregnancyon 06-06-2018 HCG ( test) Ql (U) Negative Invalid Interpretation Code Negative [facility] Interpretation and review of laboratory results Normal Invalid Interpretation Code [facility] Vital Signs Date Time Vital Sign Value Performing Clinician Facility 07-07-2025 09:05-0400 Body height 162.56 cm Disha Castillo MD Work Phone: [facility] 07-07-2025 09:05-0400 Body mass index (BMI) [Ratio] 34 kg/m2 Disha Castillo MD Work Phone: [facility] 07-07-2025 09:05-0400 Body temperature 98.4 [degF] Disha Castillo MD Work Phone: [facility] 07-07-2025 09:05-0400 Body weight 89.92 kg Disha Castillo MD Work Phone: [facility] 07-07-2025 09:05-0400 Diastolic blood pressure 81 mm[Hg] Disha Castillo MD Work Phone: [facility] 07-07-2025 09:05-0400 Heart rate 61 /min Disha Castillo MD Work Phone: [facility] 07-07-2025 09:05-0400 SaO2% (BldA) [Mass fraction] 97 % Disha Castillo MD Work Phone: [facility] 07-07-2025 09:05-0400 Systolic blood pressure 120 mm[Hg] Disha Castillo MD Work Phone: [facility] 04-28-2025 13:51-0400 Body height 162.56 cm Disha Castillo MD Work Phone: [facility] 04-28-2025 13:51-0400 Body mass index (BMI) [Ratio] 33.5 kg/m2 Disha Castillo MD Work Phone: [facility] 04-28-2025 13:51-0400 Body temperature 98.3 [degF] Disha Castillo MD Work Phone: [facility] 04-28-2025 13:51-0400 Body weight 88.45 kg Disha Castillo MD Work Phone: [facility] 04-28-2025 13:51-0400 Diastolic blood pressure 72 mm[Hg] Disha Castillo MD Work Phone: [facility] 04-28-2025 13:51-0400 Heart rate 72 /min Disha Castillo MD Work Phone: [facility] 04-28-2025 13:51-0400 SaO2% (BldA) [Mass fraction] 98 % Disha Castillo MD Work Phone: [facility] 04-28-2025 13:51-0400 Systolic blood pressure 124 mm[Hg] Disha Castillo MD Work Phone: [facility] 03-07-2025 10:23-0400 Body height 162.56 cm Disha Castillo MD Work Phone: [facility] 03-07-2025 10:23-0400 Body mass index (BMI) [Ratio] 33.8 kg/m2 Disha Castillo MD Work Phone: [facility] 03-07-2025 10:23-0400 Body weight 89.47 kg Disha Castillo MD Work Phone: [facility] 03-07-2025 10:23-0400 Diastolic blood pressure 76 mm[Hg] Disha Castillo MD Work Phone: [facility] 03-07-2025 10:23-0400 Heart rate 71 /min Disha Castillo MD Work Phone: [facility] 03-07-2025 10:23-0400 Systolic blood pressure 111 mm[Hg] Disha Castillo MD Work Phone: [facility] 03-01-2025 18:01-0400 SaO2% (BldA) [Mass fraction] 97 % Mt Baez MD Work Phone: [facility] 03-01-2025 17:53-0400 Diastolic blood pressure 61 mm[Hg] Mt Baez MD Work Phone: [facility] 03-01-2025 17:53-0400 Systolic blood pressure 113 mm[Hg] Mt Baez MD Work Phone: [facility] 03-01-2025 14:57-0400 Body mass index (BMI) [Ratio] 33.28 kg/m2 Mt Baez MD [facility] 03-01-2025 14:57-0400 Body temperature 97.7 [degF] Mt Baez MD Work Phone: [facility] 03-01-2025 14:57-0400 Body weight 90.72 kg Mt Baez MD Work Phone: [facility] 03-01-2025 14:57-0400 Heart rate 110 /min Mt Baez MD Work Phone: [facility] 03-01-2025 14:57-0400 Respiratory rate 16 /min Mt Baez MD Work Phone: [facility] 02-21-2025 09:45-0400 Body height 162.56 cm Disha Castillo MD Work Phone: [facility] 02-21-2025 09:45-0400 Body mass index (BMI) [Ratio] 34.3 kg/m2 Disha Castillo MD Work Phone: [facility] 02-21-2025 09:45-0400 Body weight 90.71 kg Disha Castillo MD Work Phone: [facility] 02-21-2025 09:45-0400 Diastolic blood pressure 78 mm[Hg] Disha Castillo MD Work Phone: [facility] 02-21-2025 09:45-0400 Heart rate 79 /min Disha Castillo MD Work Phone: [facility] 02-21-2025 09:45-0400 SaO2% (BldA) [Mass fraction] 96 % Disha Castillo MD Work Phone: [facility] 02-21-2025 09:45-0400 Systolic blood pressure 115 mm[Hg] Disha Castillo MD Work Phone: [facility] 09-02-2024 09:35-0500 Body mass index (BMI) [Ratio] 33.8 kg/m2 Lynne Nataprawira DO Work Phone: [facility] 09-02-2024 09:35-0500 Body weight 90.72 kg Lynne Nataprawira DO Work Phone: [facility] 09-02-2024 09:35-0500 Diastolic blood pressure 80 mm[Hg] Lynne Nataprawira DO Work Phone: [facility] 09-02-2024 09:35-0500 Systolic blood pressure 124 mm[Hg] Lynne Nataprawira DO Work Phone: [facility] 08-20-2024 08:05-0400 Body mass index (BMI) [Ratio] 33.46 kg/m2 Lynne Nataprawira DO Work Phone: [facility] 08-20-2024 08:05-0400 Body weight 89.81 kg Lynne Nataprawira DO Work Phone: [facility] 08-20-2024 08:05-0400 Diastolic blood pressure 80 mm[Hg] Lynne Nataprawira DO Work Phone: [facility] 08-20-2024 08:05-0400 Systolic blood pressure 126 mm[Hg] Lynne Nataprawira DO Work Phone: [facility] 07-09-2024 08:50-0400 Body height 162.56 cm [facility] 07-09-2024 08:50-0400 Body mass index (BMI) [Ratio] 34 kg/m2 [facility] 07-09-2024 08:50-0400 Body weight 89.81 kg [facility] 07-09-2024 08:50-0400 Diastolic blood pressure 86 mm[Hg] [facility] 07-09-2024 08:50-0400 Heart rate 72 /min [facility] 07-09-2024 08:50-0400 Systolic blood pressure 126 mm[Hg] [facility] 06-13-2024 09:47-0400 Body height 162.56 cm [facility] 06-13-2024 09:47-0400 Body mass index (BMI) [Ratio] 34 kg/m2 [facility] 06-13-2024 09:47-0400 Body weight 89.81 kg [facility] 06-13-2024 09:47-0400 Diastolic blood pressure 84 mm[Hg] [facility] 06-13-2024 09:47-0400 Heart rate 93 /min [facility] 06-13-2024 09:47-0400 Systolic blood pressure 132 mm[Hg] [facility] 04-15-2024 11:49-0400 Body height 162.56 cm [facility] 04-15-2024 11:49-0400 Body mass index (BMI) [Ratio] 34.3 kg/m2 [facility] 04-15-2024 11:49-0400 Body weight 90.71 kg [facility] 04-15-2024 11:49-0400 Diastolic blood pressure 79 mm[Hg] [facility] 04-15-2024 11:49-0400 Heart rate 80 /min [facility] 04-15-2024 11:49-0400 Systolic blood pressure 115 mm[Hg] [facility] 12-04-2023 11:18-0500 Body mass index (BMI) [Ratio] 34.17 kg/m2 Hussain Streeter MD Work Phone: [facility] 12-04-2023 11:18-0500 Body weight 91.72 kg Hussain Streeter MD Work Phone: [facility] 12-04-2023 11:18-0500 Diastolic blood pressure 80 mm[Hg] Hussain Streeter MD Work Phone: [facility] [facility] 12-04-2023 11:18-0500 Systolic blood pressure 124 mm[Hg] Hussain Streeter MD Work Phone: [facility] 10-24-2023 11:30-0500 Body height 162.56 cm Disha Castillo Other [employer] Other 10-24-2023 11:30-0500 Body mass index (BMI) [Ratio] 35.01 kg/m2 Disha Castillo Other [employer] Other 10-24-2023 11:30-0500 Body weight 92.53 kg Disha Castillo Other [employer] Other 10-24-2023 11:30-0500 Diastolic blood pressure 77 mm[Hg] Disha Castillo Other [employer] Other 10-24-2023 11:30-0500 Systolic blood pressure 130 mm[Hg] Disha Castillo Other [employer] Other 07-21-2023 14:00-0400 Body height 162.56 cm Disha Castillo Other [employer] Other 07-21-2023 14:00-0400 Body mass index (BMI) [Ratio] 33.33 kg/m2 Disha Castillo Other [employer] Other 07-21-2023 14:00-0400 Body temperature 97.3 [degF] Disha Castillo Other [employer] Other 07-21-2023 14:00-0400 Body weight 88.09 kg Disha Castillo Other [facility] Other 07-21-2023 14:00-0400 Diastolic blood pressure 78 mm[Hg] Disha Castillo Other [facility] Other 07-21-2023 14:00-0400 Systolic blood pressure 120 mm[Hg] Disha Castillo Other [employer] Other 02-21-2023 10:45-0400 Body height 162.56 cm Disha Castillo Other [employer] Other 02-21-2023 10:45-0400 Body mass index (BMI) [Ratio] 34.84 kg/m2 Disha Castillo Other [employer] Other 02-21-2023 10:45-0400 Body temperature 99.7 [degF] Disha Castillo Other [facility] Other 02-21-2023 10:45-0400 Body weight 92.08 kg Disha Castillo Other [facility] Other 02-21-2023 10:45-0400 Diastolic blood pressure 88 mm[Hg] Disha Castillo Other [facility] Other 02-21-2023 10:45-0400 SaO2% (BldA) [Mass fraction] 99 % Disah Castillo Other [facility] Other 02-21-2023 10:45-0400 Systolic blood pressure 126 mm[Hg] Disha Castillo Other [facility] Other 02-17-2023 19:10-0400 Body height 162.56 cm Magalis Hutton Other [facility] Other 02-17-2023 19:10-0400 Body mass index (BMI) [Ratio] 34.96 kg/m2 Magalis Hutton Other [facility] Other 02-17-2023 19:10-0400 Body temperature 98.7 [degF] Magalis Hutton Other [facility] Other 04-28-2023 19:10-0400 Body weight 92.4 kg Magalis Brennen Other [facility] Other 02-17-2023 19:10-0400 Diastolic blood pressure 75 mm[Hg] Magalis Hutton Other [facility] Other 02-17-2023 19:10-0400 Respiratory rate 18 /min Magalis Hutton Other [employer] Other 02-17-2023 19:10-0400 SaO2% (BldA) [Mass fraction] 92 % Magalis Hutton Other [facility] Other 02-17-2023 19:10-0400 Systolic blood pressure 113 mm[Hg] Magalis Hutton Other [facility] Other 11-16-2022 09:45-0500 Body height 162.56 cm Disha Castillo Other [facility] Other 11-16-2022 09:45-0500 Body mass index (BMI) [Ratio] 34.67 kg/m2 Disha Castillo Other [employer] Other 11-16-2022 09:45-0500 Body weight 91.63 kg Disha Castillo Other [facility] Other 11-16-2022 09:45-0500 Diastolic blood pressure 82 mm[Hg] Disha Castillo Other [facility] Other 11-16-2022 09:45-0500 SaO2% (BldA) [Mass fraction] 98 % Disha Castillo Other [facility] Other 11-16-2022 09:45-0500 Systolic blood pressure 110 mm[Hg] Disha Castillo Other [facility] [employer] Other 09-02-2021 08:59-0500 Body mass index (BMI) [Ratio] 32.59 kg/m2 Drake Otoole MD Work Phone: [facility] [employer] 09-02-2021 08:59-0500 Body temperature 97.9 [degF] Drake Otoole MD Work Phone: [facility] [employer] 09-02-2021 08:59-0500 Body weight 88.72 kg Drake Otoole MD Work Phone: [facility] [employer] 09-02-2021 08:59-0500 Heart rate 110 /min Drake Otoole MD Work Phone: [facility] [employer] 09-02-2021 08:59-0500 SaO2% (BldA) [Mass fraction] 98 % Drake Otoole MD Work Phone: [facility] [employer] 07-07-2021 09:19-0400 Body mass index (BMI) [Ratio] 32.12 kg/m2 Drake Otoole MD Work Phone: [facility] [employer] 07-07-2021 09:19-0400 Body temperature 97.39 [degF] Drake Otoole MD Work Phone: [facility] [employer] 07-07-2021 09:19-0400 Body weight 87.45 kg Drake Otoole MD Work Phone: [facility] [employer] 07-07-2021 09:19-0400 Diastolic blood pressure 80 mm[Hg] Drake Otoole MD Work Phone: [facility] [employer] 07-07-2021 09:19-0400 Systolic blood pressure 150 mm[Hg] Drake Otoole MD Work Phone: [facility] [employer] 07-02-2021 13:00-0400 Body temperature 97.2 [degF] Drake Otoole MD Work Phone: [facility] [employer] 07-02-2021 13:00-0400 Diastolic blood pressure 71 mm[Hg] Drake Otoole MD Work Phone: [facility] [employer] 07-02-2021 13:00-0400 Heart rate 97 /min Drake Otoole MD Work Phone: [facility] [employer] 07-02-2021 13:00-0400 Respiratory rate 16 /min Drake Otoole MD Work Phone: [facility] [employer] 07-02-2021 13:00-0400 SaO2% (BldA) [Mass fraction] 92 % Drake Otoole MD Work Phone: [facility] [employer] 07-02-2021 13:00-0400 Systolic blood pressure 124 mm[Hg] Drake Otoole MD Work Phone: [facility] 07-02-2021 06:54-0400 Body height 165 cm Drake Otoole MD Work Phone: [facility] [employer] 07-02-2021 06:54-0400 Body mass index (BMI) [Ratio] 31.85 kg/m2 Drake Otoole MD Work Phone: [facility] [employer] 07-02-2021 06:54-0400 Body weight 86.7 kg Drake Otoole MD Work Phone: [facility] [employer] 05-31-2021 08:17-0400 Body temperature 98.01 [degF] Drake Otoole MD Work Phone: [facility] [employer] 04-28-2021 09:24-0400 Body temperature 98.91 [degF] Drake Otoole MD Work Phone: [facility] [employer] 04-14-2021 14:10-0400 Body height 165.1 cm Pradeep Champion MD Work Phone: [facility] [employer] 04-14-2021 14:10-0400 Body mass index (BMI) [Ratio] 31.62 kg/m2 Pradeep Champion MD Work Phone: [facility] 04-14-2021 14:10-0400 Body temperature 97.3 [degF] Pradeep Champion MD Work Phone: [facility] 04-14-2021 14:10-0400 Body weight 86.18 kg Pradeep Champion MD Work Phone: [facility] 04-14-2021 14:10-0400 Diastolic blood pressure 88 mm[Hg] Pradeep Champion MD Work Phone: [facility] 04-14-2021 14:10-0400 Heart rate 95 /min Pradeep Champion MD Work Phone: [facility] 04-14-2021 14:10-0400 Respiratory rate 12 /min Pradeep Champion MD Work Phone: [facility] 04-14-2021 14:10-0400 SaO2% (BldA) [Mass fraction] 99 % Pradeep Champion MD Work Phone: [facility] 04-14-2021 14:10-0400 Systolic blood pressure 134 mm[Hg] Pradeep Champion MD Work Phone: [facility] 03-30-2021 15:06-0400 Body temperature 97.11 [degF] Guillermo Nguyen PHYSICIAN-[employer]ING PR[employer] OPERATOR Work Phone: [facility] 03-30-2021 15:06-0400 Diastolic blood pressure 88 mm[Hg] Guillermo Nguyen PHYSICIAN-[employer] PR[employer] OPERATOR Work Phone: [facility] 03-30-2021 15:06-0400 Heart rate 75 /min Guillemro Nguyen PHYSICIAN-[employer] PR[employer] OPERATOR Work Phone: [facility] 03-30-2021 15:06-0400 Respiratory rate 16 /min Guillermo Nguyen PHYSICIAN-[employer]ING PR[employer] OPERATOR Work Phone: [facility] 03-30-2021 15:06-0400 SaO2% (BldA) [Mass fraction] 96 % Guillermo Nguyen PHYSICIAN-[employer]ING PR[employer] OPERATOR Work Phone: [facility] [employer] [facility] 03-30-2021 15:06-0400 Systolic blood pressure 158 mm[Hg] Guillermo Nguyen PHYSICIAN-[employer]ING PR[employer] OPERATOR Work Phone: [facility] [employer] 03-15-2021 17:44-0400 Body temperature 97.5 [degF] Guillermo Nguyen PHYSICIAN-[employer] PR[employer] OPERATOR Work Phone: [facility] [employer] 03-15-2021 17:44-0400 Heart rate 91 /min Guillermo Nguyen PHYSICIAN-[employer]ING PR[employer] OPERATOR Work Phone: [facility] [employer] 03-15-2021 17:44-0400 Respiratory rate 19 /min Guillermo Nguyen PHYSICIAN-[employer]ING PR[employer] OPERATOR Work Phone: [facility] [employer] 03-15-2021 17:44-0400 SaO2% (BldA) [Mass fraction] 96 % Guillermo Nguyen PHYSICIAN-[employer]ING PR[employer] OPERATOR Work Phone: [facility] [employer] 02-14-2021 14:54-0400 Diastolic blood pressure 75 mm[Hg] Julito Koehler MD Work Phone: [facility] 02-14-2021 14:54-0400 Heart rate 72 /min Julito Koehler MD Work Phone: [facility] 02-14-2021 14:54-0400 Respiratory rate 16 /min Julito Koehler MD Work Phone: [facility] 02-14-2021 14:54-0400 SaO2% (BldA) [Mass fraction] 99 % Jluito Koehler MD Work Phone: [facility] 02-14-2021 14:54-0400 Systolic blood pressure 127 mm[Hg] Julito Koehler MD Work Phone: [facility] 02-14-2021 11:01-0400 Body height 165.1 cm Julito Koehler MD Work Phone: [facility] 02-14-2021 11:01-0400 Body mass index (BMI) [Ratio] 30.79 kg/m2 Julito Koehler MD Work Phone: [facility] 02-14-2021 11:01-0400 Body temperature 98.29 [degF] Julito Koehler MD Work Phone: [facility] 02-14-2021 11:01-0400 Body weight 83.92 kg Julito Koehler MD Work Phone: [facility] 01-13-2021 14:36-0400 Body height 165.1 cm Pradeep Champion MD Work Phone: [facility] 01-13-2021 14:36-0400 Body mass index (BMI) [Ratio] 32.12 kg/m2 Pradeep Champion MD Work Phone: [facility] 01-13-2021 14:36-0400 Body temperature 97.39 [degF] Pradeep Champion MD Work Phone: [facility] 01-13-2021 14:36-0400 Body weight 87.54 kg Pradeep Champion MD Work Phone: [facility] 01-13-2021 14:36-0400 Diastolic blood pressure 76 mm[Hg] Pradeep Champion MD Work Phone: [facility] 01-13-2021 14:36-0400 Heart rate 78 /min Pradeep Champion MD Work Phone: [facility] 01-13-2021 14:36-0400 Respiratory rate 12 /min Pradeep Champion MD Work Phone: [facility] 01-13-2021 14:36-0400 SaO2% (BldA) [Mass fraction] 97 % Pradeep Champion MD Work Phone: [facility] 01-13-2021 14:36-0400 Systolic blood pressure 132 mm[Hg] Pradeep Champion MD Work Phone: [facility] 06-06-2018 18:40-0400 BP Diastolic 77 mm[Hg] [facility] 06-06-2018 18:40-0400 BP Systolic 120 mm[Hg] [facility] 06-06-2018 18:40-0400 Pulse (Heart Rate) 74 /min James Story [facility] 06-06-2018 18:40-0400 Pulse Oximetry 98 % [facility] 06-06-2018 18:40-0400 Respiratory Rate 16 /min James Story [facility] 06-06-2018 15:28-0400 BMI (Body Mass Index) 32.27 kg/m2 [facility] 06-06-2018 15:28-0400 Body Temperature 98.29 [degF] James Story [facility] 06-06-2018 15:28-0400 Height 162.6 cm [facility] 06-06-2018 15:28-0400 Weight 85.28 kg [facility] Encounters Encounter Date Encounter Type Care Provider Facility Start: 07-07-2025 End: 07-07-2025 ambulatory Disha Castillo MD Work Phone: [facility] Work Phone: Start: 07-07-2025 End: 07-07-2025 Patient encounter procedure Magalis Hutton PHYSICIAN -[facility] Work Phone: Start: 04-28-2025 End: 04-28-2025 ambulatory Disha Castillo MD Work Phone: [facility] Work Phone: Start: 04-28-2025 End: 04-28-2025 Patient encounter procedure Griselda Mcrae APRN [facility] Work Phone: Start: 03-07-2025 End: 03-07-2025 Patient encounter procedure Disha Castillo MD -[facility] Work Phone: Start: 03-01-2025 End: 03-01-2025 Emergency department patient visit Mt Baez MD Work Phone: [facility] Emergency Department Comment on above: Abdominal pain, unsp ecified abdominal location (Primary Dx) Start: 02-21-2025 End: 02-21-2025 ambulatory Disha Castillo MD Work Phone: [facility] Work Phone: Start: 02-21-2025 End: 02-21-2025 Patient encounter procedure Disha Castillo MD Work Phone: [facility] Work Phone: Start: 12-31-2024 End: 12-31-2024 ambulatory Disha Castillo MD Work Phone: [facility] Work Phone: Start: 12-31-2024 End: 12-31-2024 Departed Referred Disha Castillo MD Work Phone: [facility] [place] Work Phone: Start: 09-02-2024 End: 09-02-2024 Office outpatient visit 15 minutes Lynne Jassora DO Work Phone: [facility] Comment on above: Encounter to discuss test results (Primary Dx); Menometrorrhagia; Dysmenorrhea; Hx of endometriosis; Family planning Start: 09-02-2024 End: 09-02-2024 ambulatory LYNNE Shelbie NATAPRAWIRA Not Available Start: 08-20-2024 End: 08-20-2024 Office outpatient visit 15 minutes Lynne Harmonaprawira DO Work Phone: [facility] Comment on above: Menometrorrhagia (Pr imary Dx); Dysmenorrhea; Family planning; Hx of endometriosis Start: 08-20-2024 End: 08-20-2024 ambulatory LYNNE Shelbie NATAPRAWIRA Not Available Start: 07-18-2024 End: 07-22-2024 Telephone encounter Supriya Benito LPN [facility] Start: 07-09-2024 End: 07-09-2024 ambulatory [facility] Work Phone: Start: 07-09-2024 End: 07-09-2024 Patient encounter procedure [facility] Work Phone: Start: 06-13-2024 End: 06-13-2024 ambulatory [facility] Work Phone: Start: 06-13-2024 End: 06-13-2024 Patient encounter procedure [facility] Work Phone: Start: 04-15-2024 End: 04-15-2024 ambulatory [facility] Work Phone: Start: 04-15-2024 End: 04-15-2024 Patient encounter procedure [facility] Work Phone: Start: 12-04-2023 Bamboo flowsheet Hussain levine MD Work Phone: [facility] Start: 12-04-2023 Bamboo flowsheet Hussain levine MD Work Phone: [facility] Start: 12-04-2023 End: 12-04-2023 Patient encounter status Hussain Streeter MD Work Phone: [facility] Work Phone: Start: 12-04-2023 End: 12-04-2023 Periodic preventive med est patient 18-39 yrs Hussain Streeter MD Work Phone: [facility] Comment on above: Well female exam wit h routine gynecological exam (Primary Dx); Dysmenorrhea Start: 12-04-2023 End: 12-04-[address] Not Available Start: 11-24-2023 End: 11-24-2023 ambulatory iDsha Castillo Other [facility] Other Start: 11-24-2023 Telephone encounter Disha Castillo [facility] Nursing Service Administrator Start: 10-24-2023 End: 10-24-2023 ambulatory Disha Castillo Other [facility] Other Start: 10-24-2023 Office outpatient vi sit 25 minutes Disha Castillo [facility] Start: 07-21-2023 End: 07-21-2023 ambulatory Disha Castillo Other [employer] Other Start: 07-21-2023 Office outpatient vi sit 15 minutes Disha Castillo [facility] Start: 02-21-2023 End: 02-21-2023 ambulatory Disha Castillo Other [facility] Other Start: 02-21-2023 Office outpatient vi sit 15 minutes Disha Castillo [facility] Start: 02-17-2023 End: 02-17-2023 ambulatory Magalis Hutton Other [facility] Other Start: 02-17-2023 Office outpatient vi sit 25 minutes Magalis Hutton [facility] Start: 01-23-2023 End: 01-23-2023 Subsequent hospital visit by physician Ana Ayala DO Work Phone: [facility] Laboratory Comment on above: Flank pain; RUQ pain Start: 12-14-2022 (Televisit) Televisit Disha Reyes [facility] Start: 12-14-2022 End: 12-14-2022 ambulatory Disha Castillo Other [facility] Other Start: 11-16-2022 End: 11-16-2022 ambulatory Disha Castillo Other [facility] Other Start: 11-16-2022 Encounter for genera l adult medical examination without abnormal findings Disha Castillo [facility] Start: 11-16-2022 Periodic preventive med est patient 18-39 yrs Disha Castillo [facility] Start: 10-26-2022 End: 10-26-[address] DISHA CASTILLO Facility:[facility] Start: 10-10-2022 End: 10-11-[address] DISHA CASTILLO Facility:[facility] Start: 08-19-2022 End: 08-20-[address] DISHA CASTILLO Facility:[facility] Start: 06-02-2022 End: 06-03-[address] DISHA CASTILLO Facility:[facility] Start: 04-29-2022 End: 05-27-[address] DISHA CASTILLO Facility:[facility] Start: 04-12-2022 End: 04-13-[address] DISHA CASTILLO Facility:[facility] Start: 09-02-2021 End: 09-02-2021 Office outpatient visit 15 minutes Drake Otoole MD Work Phone: [facility] Otolaryngology Comment on above: Chronic maxillary si nusitis (Primary Dx); Nasal septal deviation; Hypertrophy of nasal turbinates Start: 07-07-2021 End: 07-07-2021 Postop follow up visit related to original px Drake Otoole MD Work Phone: [facility] Otolaryngology Comment on above: Chronic maxillary si nusitis (Primary Dx); Nasal septal deviation Start: 07-02-2021 End: 07-02-2021 Subsequent hospital visit by physician Drake Otoole MD Work Phone: [facility] Outpatient Surgery Comment on above: Postoperative pain ( Primary Dx); Nasal septal deviation; Chronic maxillary sinusitis; 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 Start: 05-31-2021 End: 05-31-2021 Office outpatient visit 25 minutes Drake Otoole MD Work Phone: [facility] Comment [facility] above: Chronic maxillary si nusitis (Primary Dx); Nasal septal deviation; Hypertrophy of nasal turbinates Start: 05-07-2021 End: 05-07-2021 Subsequent hospital visit by physician [address] Radiology Comment on above: Chronic maxillary si nusitis Start: 04-28-2021 End: 04-28-2021 Office outpatient visit 25 minutes Drake Otoole MD Work Phone: [facility] Otolaryngology Comment on above: Chronic maxillary si nusitis (Primary Dx); Gastroesophageal reflux disease, unspecified whether esophagitis present Start: 04-14-2021 End: 04-14-2021 Office outpatient visit 15 minutes Pradeep Champion MD Work Phone: [facility] Pulmonology Comment on above: Moderate persistent chronic asthma without complication (Primary Dx); Upper respiratory tract infection, unspecified type Start: 03-30-2021 End: 03-30-2021 Office outpatient visit 15 minutes Guillermo Nguyen PHYSICIAN-[employer] OPERATOR Work Phone: [facility] Comment on above: Cervical lymphadenop athy (Primary Dx) Start: 03-15-2021 End: 03-15-2021 Office outpatient visit 10 minutes Guillermo Nguyen PHYSICIAN-[employer] PR[employer] OPERATOR Work Phone: [facility] Comment on above: Acute non-recurrent pansinusitis (Primary Dx) Start: 02-14-2021 End: 02-14-2021 Emergency department patient visit JULITO KOEHLER [facility] Start: 02-14-2021 End: 02-14-2021 Emergency department patient visit Julito Koehler MD Work Phone: [facility] Emergency Department Start: 02-07-2021 End: 02-07-2021 Subsequent hospital visit by physician Ana Ayala DO Work Phone: Laboratory Comment on above: Flank pain Start: 01-13-2021 End: 01-13-2021 Office outpatient visit 15 minutes Pradeep Champion MD Work Phone: [facility] Pulmonology Comment on above: Moderate persistent chronic asthma without complication (Primary Dx) Start: 12-23-2020 End: 12-23-2020 Office outpatient visit 15 minutes Pradeep Champion MD Work Phone: [facility] Pulmonology Comment on above: Moderate persistent asthma, unspecified whether complicated (Primary Dx); COVID-19 virus infection Start: 08-25-2020 End: 08-25-2020 Subsequent hospital visit by physician Ana MCDONNELL Laboratory Comment on above: Viral URI Start: 12-19-2019 End: 12-19-2019 Emergency department patient visit EKATERINAAiden [place] Start: 06-06-2018 End: 06-06-2018 Emergency department patient visit James Story Work Phone: [facility] Emergency Department Procedures Date Procedure Procedure Detail Performing Clinician Start: 04-28-2025 Quick Strep (POC) Beverley Castillo MD Work Phone: Start: 03-01-2025 Ct abdomen & pelvis w/o contrast material Mt Baez MD Work Phone: Start: 03-01-2025 Urinalysis microscopic only Mt Baez MD Work Phone: Start: 03-01-2025 Urnls dip stick/tabl et rgnt auto w/o microscopy Mt Baez MD Work Phone: Start: 03-01-2025 Comprehensive metabo lic panel Mt Baez MD Work Phone: Start: 12-31-2024 Urine culture Disha morgan MD Work Phone: Start: 01-23-2023 Comprehensive metabo lic panel Andrzej Syed PHYSICIAN - [employer] OPER[employer] Work Phone: Start: 01-23-2023 Urinalysis microscopic only Andrzej Syed PHYSICIAN - [employer] OPERATOR Work Phone: Start: 01-23-2023 Urnls dip stick/tabl et rgnt auto w/o microscopy Andrzej Syed PHYSICIAN - [employer] OPERATOR Work Phone: Start: 07-02-2021 FUNCTIONAL ENDOSCOPI C SINUS SURGERY Drake Otoole MD Work Phone: Start: 07-02-2021 Nasal septoplasty Daniel Otoole MD Work Phone: Start: 07-02-2021 Urine test visual color cmprsn meths Drake Otoole MD Work Phone: Start: 05-07-2021 Ct maxillofacial w/o contrast material Drake Otoole MD Work Phone: Start: 02-14-2021 Urnls dip stick/tabl et reagent auto microscopy Shade Vaz B[employer]ING PR[employer] OPERATOR Work Phone: Start: 02-14-2021 Ct abdomen & pelvis w/o contrast material Shade Vaz B[employer]ING PR[employer] OPERATOR Work Phone: Start: 02-14-2021 PINK TOP Julito Koehler MD Work Phone: Start: 02-14-2021 Gonadotropin chorion ic qualitative Shade Vaz B[employer]ING PR[employer] OPERATOR Work Phone: Start: 02-14-2021 SRINIVASAN TOP Julito Koehler MD Work Phone: Start: 02-14-2021 LIGHT BLUE TOP Julito Koehler MD Work Phone: Start: 02-14-2021 LIGHT GREEN TOP Julito Koehler MD Work Phone: Start: 02-14-2021 RAINBOW DRAW Julito Koehler MD Work Phone: Start: 02-07-2021 Basic metabolic pane l calcium total Ana W Vandehey DO Work Phone: Start: 02-07-2021 Urinalysis microscopic only Ana W Vandehey DO Work Phone: Start: 02-07-2021 Urnls dip stick/tabl et rgnt auto w/o microscopy Ana W Vandehey DO Work Phone: Plan of Treatment Date Care Activity Detail Author Start: 2050 Pneumococcal Vaccine : 65+ Years (1 of 1 - PPSV23) Pneumococcal Vaccine: 65+ Years (1 of 1 - PPSV23) [facility] Start: 2050 Pneumococcal Vaccine : Pediatrics (0 to 5 Years) and At-Risk Patients (6 to 64 Years) (2 of 2 - PPSV23) Pneumococcal Vaccine: Pediatrics (0 to 5 Years) and At-Risk Patients (6 to 64 Years) (2 of 2 - PPSV23) [facility] Start: 2035 Zoster Vaccines (1 o f 2) Zoster Vaccines (1 of 2) [facility] Start: 11-16-2032 DTaP/Tdap/Td vaccine (9 - Td or Tdap) DTaP/Tdap/Td vaccine (9 - Td or Tdap) [facility] Start: 05-23-2025 Influenza vaccination Flu vacc ine (Season Ended) [facility] Start: 01-13-2025 Depression Screen Depression Screen [facility] Start: 12-31-2024 Bacteria identified in Urine by Culture Urine Culture [facility] Start: 09-02-2024 End: 09-02-2024 Patient encounter procedure 09/02/2024 10:00 AM EST Office Visit [facility] [address] [id number] Lynne Nogueira DO [address] [id number] [facility] Start: 09-02-2024 End: 09-02-2024 Professional / ancillary services management 09/02/2024 9:00 AM EST Ancillary Procedure [facility] [address] [id number] [facility] Start: 08-20-2024 End: 08-20-2024 Patient encounter procedure 08/20/2024 8:30 AM EDT Office Visit [facility] [address] [address] Lynne Nogueira DO [address] [facility] D [address] [address] [facility] Start: 07-09-2024 Patient referral [facility] Work Phone: Start: 06-23-2024 COVID-19 Vaccine ( season) COVID-19 Vaccine ( season) [facility] Start: 06-13-2024 Patient referral [facility] Work Phone: Start: 01-22-2024 DTaP/Tdap/Td vaccine (8 - Td or Tdap) DTaP/Tdap/Td vaccine (8 - Td or Tdap) [facility] Start: 01-22-2024 DTaP/Tdap/Td vaccine (8 - Td) DTaP/Tdap/Td vaccine (8 - Td) [place] Start: 01-22-2024 DTaP/Tdap/Td Vaccine s (8 - Td or Tdap) DTaP/Tdap/Td Vaccines (8 - Td or Tdap) [facility] Start: 01-22-2024 DTaP/Tdap/Td Vaccine s (8 - Td) DTaP/Tdap/Td Vaccines (8 - Td) [facility] Start: 01-22-2024 Tetanus vaccination Tetanus: Every 1 0yrs [facility] Start: 12-04-2023 End: 12-04-2023 Patient encounter procedure 12/04/2023 11:30 AM EST Office Visit [facility] [address] SULEMA D [address] [id number] Hussain Streeter MD [address] [facility] [address] [place] [address] Dysmenorrhea [facility] Comment on above: Dysmenorrhea Start: 05-23-2023 Influenza vaccination Flu vacc ine (Season Ended) [facility] Start: 10-06-2021 End: 10-06-2021 Patient encounter procedure [facility] Pulmonology Start: 09-02-2021 End: 09-02-2021 Patient encounter procedure 09/02/2021 Office Visit Otolaryngology Drake Otoole MD [address] [place] [address] [facility] Otolaryngology Start: 07-07-2021 End: 07-07-2021 Patient encounter procedure 07/07/2021 Office Visit Otolaryngology Drake Otoole MD [address] [place] [address] [facility] Otolaryngology Start: 06-23-2021 Influenza vaccination L [facility] Start: 05-31-2021 End: 05-31-2021 Patient encounter procedure 05/31/2021 Office Visit Otolaryngology Drake Otoole MD [address] [place] [id number] [facility] Otolaryngology Start: 04-28-2021 End: 04-28-[address] CT S[address] W [address]IGATION CT SINUS W NAVIGATION Imaging Routine Chronic maxillary sinusitis Expected: 04/28/2021, Expires: 04/28/2022 [facility] Comment on above: Expected: 04/28/2021 , Expires: 04/28/2022 Start: 04-14-2021 End: 04-14-2021 Patient encounter procedure [facility] Pulmonology Start: 07-15-2020 Pneumococcal 0-49 years Vaccine (2 of 2 - PCV) Pneumococcal 0-49 years Vaccine (2 of 2 - PCV) [facility] Start: 06-23-2020 Influenza vaccination M [place] Start: 08-27-2018 Screening for malignant neoplasm of cervix Cervical cancer screen [place], [place] Start: 2015 HPV/Cotest HPV/Cotest [facility] Start: 2015 Screening for malignant neoplasm of cervix [facility] Start: 06-20-2015 Varicella vaccination Varicell a Vaccines (1 of 2 - 2-dose childhood series) [facility] Start: 2006 Screening for malignant neoplasm of cervix Pap Smear [facility] Start: 2003 Hepatitis C screening B ON [facility] Start: 2001 COVID-19 Vaccine (1) COVID-19 Vaccin e (1) [facility] Work Phone: Start: 2000 HIV screening [facility] Start: 1997 COVID-19 Vaccine (1) COVID-19 Vaccin e (1) [facility] Start: 1997 Depression Screen Depression Screen [facility] Start: 1997 Depression screening using PHQ-9 (Patient Health Questionnaire 9) score Depression Screening (PHQ9) [facility] Start: 1996 DTaP/Tdap/Td Vaccine s (6 - Tdap) DTaP/Tdap/Td Vaccines (6 - Tdap) [facility] Start: 1988 History and physical examination, annual for health maintenance Wellness Visit [facility] Start: 06-04-1986 COVID-19 Vaccine (#1) COVID-19 Vacci ne (#1) NGUYEN [facility] Start: 1985 Hepatitis C screening L [facility] Start: 1985 HIV screening HIV Screening [facility] Start: 1985 Screening for malignant neoplasm of cervix Pap Smear [facility] End: 06-06-2018 Bacteria identified Aer cx Nom (Unsp spec) Urine Aerobic Culture Routine Once for 1 Occurrences starting 06/06/2018 until 06/06/2018 [facility] End: 02-14-2021 Bacteria identified in Unspecified specimen by Aerobe culture Urine Aerobic Culture Microbiology Routine Once for 1 Occurrences starting 02/14/2021 until 02/14/2021 [facility] Comment on above: Once for 1 Occurrenc es starting 02/14/2021 until 02/14/2021 Bacteria identified in Unspecified specimen by Aerobe culture Urine Aerobic Culture Microbiology Routine 02/14/2021 1:23 PM EDT [facility] End: 08-25-2020 COVID-19 Ambulatory COVID-19 Ambulatory Lab Routine Viral URI 1 Occurrences starting 08/25/2020 until 08/25/2020 [place] Comment on above: 1 Occurrences starti ng 08/25/2020 until 08/25/2020 COVID-19 Ambulatory COVID-19 Amb ulatory Lab Routine Viral URI 08/25/2020 3:45 PM EST [place] End: 02-07-2021 Culture, Urine Culture, Urine Microbiology STAT Flank pain 1 Occurrences starting 02/07/2021 until 02/07/2021 [employer] Phone: Comment on above: 1 Occurrences starti ng 02/07/2021 until 02/07/2021 Culture, Urine Culture, Urine Microbiology STAT Flank pain 02/07/2021 4:41 PM EDT [facility] E[facility] 12 [facility] panel [facility] MR Brain WO contrast [facility] Patient referral [facility] Work Phone: [place] Gallbladder [facility] Immunizations Immunization Date Immunization Notes Care Provider Fa riteshty 11-16-2022 tetanus toxoid, redu debra diphtheria toxoid, and acellular pertussis vaccine, adsorbed Disha Castillo Other [facility] 07-15-2019 pneumococcal polysaccharide vaccine, 23 valent [facility] [place] 05-23-2015 hepatitis A vaccine, unspecified formulation [facility] [employer] [facility] 05-23-2015 hepatitis B vaccine, unspecified formulation [facility] [place] 05-23-2015 measles, mumps and rubella virus vaccine [facility] [place] 07-28-2014 hepatitis A vaccine, unspecified formulation [facility] [place] 06-17-2014 hepatitis A vaccine, unspecified formulation [facility] [employer] [facility] 06-17-2014 measles, mumps and rubella virus vaccine [facility] [place] 01-21-2014 tetanus toxoid, redu debra diphtheria toxoid, and acellular pertussis vaccine, adsorbed [facility] [place] 01-22-2013 tetanus toxoid, redu debra diphtheria toxoid, and acellular pertussis vaccine, adsorbed [facility] [employer] [facility] 06-14-1991 diphtheria, tetanus toxoids and acellular pertussis vaccine, unspecified formulation Ana [employer] [facility] 06-14-1991 trivalent poliovirus vaccine, live, oral Ana [employer] [facility] 07-17-1989 diphtheria, tetanus toxoids and acellular pertussis vaccine, unspecified formulation Ana [employer] [facility] 02-05-1988 haemophilus influenz ae type b vaccine, conjugate unspecified formulation Ana [employer] [facility] 07-17-1987 trivalent poliovirus vaccine, live, oral [employer] [facility] 06-12-1987 measles, mumps and rubella virus vaccine [facility] [employer] [facility] 07-04-1986 diphtheria, tetanus toxoids and pertussis vaccine [facility] 04-04-1986 diphtheria, tetanus toxoids and pertussis vaccine Ana [facility] 04-04-1986 trivalent poliovirus vaccine, live, oral [facility] 01-31-1986 diphtheria, tetanus toxoids and pertussis vaccine Ana [facility] 01-31-1986 trivalent poliovirus vaccine, live, oral [facility] Payers Date Payer Category Payer Self-pay 2023 [employer] ( and others) [id number] 2023 ([facility]) [id number] 2018 Unknown [id number] 2018 [employer] ( and others) [id number] 2011 [employer] ( and others) [id number] 1985 Unknown [id number] 2.16.840.1.055331.3.579.2 .900 1985 Unknown [id number] 2.16.840.1.802101.3.579.2 .593 1985 Unknown [id number] 2.16.840.1.825529.3.579.2 .593 1985 Unknown [id number] 2.16.840.1.831498.3.579.2 .593 1985 Unknown [id number] 2.16.840.1.474335.3.579.2 .593 1985 Unknown [id number] 2.16.840.1.158438.3.579.2 .593 1985 Unknown [id number] 2.16.840.1.684312.3.579.2 .593 1985 Unknown [id number] 2.16.840.1.863813.3.579.2 .593 1985 Unknown [id number] 2.16.840.1.807876.3.579.2 .1259 1985 Unknown [id number] 2.16.840.1.853200.3.579.2 .1259 1985 Unknown [id number] 2.16.840.1.038958.3.579.2 .1259 1985 Unknown [id number] 2.16.840.1.179153.3.579.2 .1259 1985 Unknown [id number] 2.16.840.1.439285.3.579.2 .172 1959 [employer] ( and others) [id number] [id number] 1959 [employer] ( and others) [id number] Unknown [id number] [id number] .531 Social History Date Type Detail Facility Start: 06-06-2018 End: 01-23-2023 Tobacco smoking status HIIS Never smoker [facility] Start: 1985 Sex Assigned At Not on file [facility] Start: 1985 Sex Assigned At Female [facility] Start: 08-25-2020 End: 01-23-2023 Tobacco use and exposure Never used [employer], [facility] Start: 08-25-2020 End: 03-01-2025 Alcohol intake Current drink[facility] of alcohol (finding) [facility] Start: 10-12-2014 Alcohol Comment rarely [facility] Start: 01-13-2023 End: 01-23-2023 Exposure to SARS-CoV-2 (event) Not sure [facility] Start: 02-14-2021 Alcohol intake Current non-drinker of alcohol (finding) [facility] Start: 01-13-2021 End: 03-15-2021 Alcohol intake Lifetime non-drinker (finding) [facility] [employer] Start: 12-15-2020 History SDOH Alcohol Frequency 1 [facility] Start: 07-02-2021 Alcohol Comment rare [facility] Exposure to SARS-CoV -2 (event) Yes [facility] [employer] Start: 11-21-2023 End: 03-01-2025 Sex Assigned At [facility] [employer] Other Start: 01-23-2023 End: 03-01-2025 Alcohol intake [employer] [facility] Work Phone: [facility] if ever smoked [facility] Work Phone: Start: 12-02-2012 End: 01-01-2025 Sex Female (finding) [facility] How often to you hav e a drink containing alcohol? Monthly or less [employer] How many standard dr inks containing alcohol do you have on a typical day? 1 or 2 [employer] How often do you hav e 6 or more drinks on 1 occasion? Less than monthly [employer] How hard is it for y ou to pay for the very basics like food, housing, medical care, and heating Somewhat hard [employer] Patient Health Questionnaire 9 item (PHQ-9) total score [Reported] 2 [employer] (I/We) worried wheth er (my/our) food would run out before (I/we) got money to buy more. Never true [facility] Goals Date Patient Goal Desired Activity /State Functional Status Date Assessment Result Facility [facility] Clinical Notes 12-23-2020 to 04-28-2025 Note Date & Type Note Facility 04-28-2025 Evaluation note Diagnosis Onset Date Resolution Sore throat acute April 28 1:49pm [facility] Work Phone: 1(387) 744-411005-10-2025 Hospital Discharge instructions* Discharge Instructions* Mt Baez MD - 03/01/2025 5:33 PM EDT Follow-up with hand worker for further workup. Return for worsening symptoms. * Attachments The following attachments cannot be sent through Care Everywhere. * Abdominal Pain (Colombian) documented in this encounterBon [facility]05-[facility] Evaluation note* Diagnosis Onset Date Resolution Status Admit Date Anxiety, generalized acute February 21, 2025 9:45am Chest pain acute February 21, 2025 9:45am RAD (reactive airway disease) acute February 21, 2025 9:45am RUQ pain acute February 21, 2025 9:45am Gastroenteritis acute March 07, 2025 10:21am Sore throat acute April 28 1:49pm [facility] Work Phone: 1(246) 379-588511-11-2024 History of Present illness Narrative* Lynne Nogueira, - 09/02/2024 10:00 AM EST Images from the original note were not included. Subjective Griselda Wright is a 38 y.o. female HPI Chief Complaint Patient presents with Follow-up Patient here for a follow up after pelvic ultrasound due to heavy and painful periods. Denies otherproblems. LMP 08/31/24 Pelvic ultrasound revealed retroverted uterus measuring [id number] with normal contour and has homogeneous myometrial echotexture. Endometrium normal in contour and thickness of 9.3mm with no overt submucosal fibroids or polyps. Right ovary measuring [id number] with no cysts identified, leading follicle measuring 8.0x7.0x8.0mm noted. Left ovary measuring [id number] with thin walled and sonolucentcyst measuring [id number] identified. No free fluid in the pelvis and good blood profusion noted toboth ovaries Past Medical History: Diagnosis Date Acute kidney failure (CMS/HCC) Allergic rhinitis due to animal (cat) (dog) hair and dander Seasonal allergies Past Surgical History: Procedure Laterality Date OTHER SURGICAL HISTORY Polyp removed from colon SINUS SURGERY 2020 WISDOM TOOTH EXTRACTION Family History Problem Relation Name Age of Onset Interstitial cystitis Mother Endometriosis Sister Hypertension Maternal Grandmother Hyperlipidemia Maternal Grandmother Breast cancer Paternal Grandmother Heart disease Paternal Grandfather Hypertension Paternal Grandfather Social History Tobacco Use Smoking status: Never Smokeless tobacco: Never Substance Use Topics Alcohol use: Yes Alcohol/week: 1.0 - 2.0 standard drink of alcohol Types: 1 - 2 Standard drinks or equivalent per week Drug use: Never OB History Para Term AB Living 0 0 0 0 0 0 SAB IAB Ectopic Multiple Live Births 0 0 0 0 0 Obstetric Comments Pap: 06/30/22-NILM, HPV Neg No control; every month, scant to heavy blood loss, clots. Allergies Allergen Reactions Levofloxacin Tendon issues Other reaction(s): tendon issues in heels Sulfamethoxazole-Trimethoprim Other reaction(s): All sulfa drugs - rash Cat Hair Extract Sulfa Antibiotics Rash Current Outpatient Medications on File Prior to Visit Medication Sig Dispense Refill albuterol HFA 90 mcg/act inhaler inhale 1 puff every 4 hours if needed cetirizine (ZyrTEC) 10 MG tablet Take 1 tablet by mouth in the morning. clonazePAM (KlonoPIN) 0.5 MG tablet take 1 tablet by mouth once daily if needed for SEVERE anxiety cyclobenzaprine (Flexeril) 5 MG tablet Take 5 mg by mouth as needed at bedtime desvenlafaxine (Pristiq) 100 MG 24 hr tablet Take 50 mg by mouth Daily fluticasone (Flonase Sensimist) 27.5 MCG/SPRAY nasal spray Administer 2 sprays into each nostril inthe morning. Multiple Vitamin (Multi-Vitamin) tablet Take 1 tablet by mouth in the morning. omega-3 1000 MG capsule capsule Take 1,000 mg by mouth in the morning. Vit-DSS-Fe Fum-FA ( 19) 29-1 MG tablet 1 (one) time each day at the same time No current facility-administered medications on file prior to visit. Review of Systems All other systems reviewed and are negative. Objective BP 124/80 Wt 200 lb LMP 08/31/2024 BMI 33.80 kg/m Physical Exam Constitutional: Appearance: Normal appearance. Neurological: Mental Status: She is alert. Skin: General: Skin is warm and dry. Psychiatric: Mood and Affect: Mood normal. Assessment/Plan 1. Encounter to discuss test results (Primary) Pelvic ultrasound findings discussed. Treatment/management options discussed 2. Menometrorrhagia Patient declined any medical treatment at this time and voiced interest in trying to get . Patient also declined any interest in combination OCP to regulate her cycles first prior to trying to conceive. Patient to contact the office with any concerns/questions 3. Dysmenorrhea 4. Hx of endometriosis 5. Family planning Declined any interest in contraception at this time. Patient would like to try to conceive. Patientto start vitamin intake documented in this encounterNevada Regional Medical [id number] History of Present illness Narrative* Lynne Nogueira DO - 08/20/2024 8:30 AM EDT Images from the original note were not included. Subjective Griselda Wright is a 38 y.o. female Gynecologic Exam The patient's pertinent negatives include no pelvic pain or vaginal discharge. Pertinent negatives include no chills, dysuria, fever, headaches, nausea or vomiting. Chief Complaint Patient presents with Gynecologic Exam Patient referred by Dr. Disha Castillo for heavy, prolonged periods in the past year which worsened in the past 3 months . Patient states that in May her period lasted 14 days. Patient reports that she has a period every month lasting 11-14 days with heavy bleeding and moderate cramping, taking Ibuprofen every 4- 6 hours for relief. Changing a tampon with period panties every 3-4 hours. LMP 07/31/24. Does not use anything for birthcontrol. Not sexually active. Patient states that she is working some things out with her . Patient states that her motherwas diagnosed with interstitial cystitis, patient reports occasional pelvic discomfort. Patient reports her thyroid has been checked and was told it was normal. Past Medical History: Diagnosis Date Acute kidney failure (CMS/HCC) Allergic rhinitis due to animal (cat) (dog) hair and dander Seasonal allergies Past Surgical History: Procedure Laterality Date OTHER SURGICAL HISTORY Polyp removed from colon SINUS SURGERY 2020 WISDOM TOOTH EXTRACTION Family History Problem Relation Name Age of Onset Interstitial cystitis Mother Endometriosis Sister Hypertension Maternal Grandmother Hyperlipidemia Maternal Grandmother Breast cancer Paternal Grandmother Heart disease Paternal Grandfather Hypertension Paternal Grandfather Social History Tobacco Use Smoking status: Never Smokeless tobacco: Never Substance Use Topics Alcohol use: Yes Alcohol/week: 1.0 - 2.0 standard drink of alcohol Types: 1 - 2 Standard drinks or equivalent per week Drug use: Never OB History Para Term AB Living 0 0 0 0 0 0 SAB IAB Ectopic Multiple Live Births 0 0 0 0 0 Obstetric Comments Pap: 07/14-Neg DAVIS: HPV Neg No control; every month, scant to heavy blood loss, clots. Allergies Allergen Reactions Levofloxacin Tendon issues Other reaction(s): tendon issues in heels Sulfamethoxazole-Trimethoprim Other reaction(s): All sulfa drugs - rash Cat Hair Extract Sulfa Antibiotics Rash Current Outpatient Medications on File Prior to Visit Medication Sig Dispense Refill albuterol HFA 90 mcg/act inhaler inhale 1 puff every 4 hours if needed cetirizine (ZyrTEC) 10 MG tablet Take 1 tablet by mouth in the morning. clonazePAM (KlonoPIN) 0.5 MG tablet take 1 tablet by mouth once daily if needed for SEVERE anxiety cyclobenzaprine (Flexeril) 5 MG tablet Take 5 mg by mouth as needed at bedtime desvenlafaxine (Pristiq) 100 MG 24 hr tablet Take 50 mg by mouth Daily fluticasone (Flonase Sensimist) 27.5 MCG/SPRAY nasal spray Administer 2 sprays into each nostril inthe morning. Multiple Vitamin (Multi-Vitamin) tablet Take 1 tablet by mouth in the morning. omega-3 1000 MG capsule capsule Take 1,000 mg by mouth in the morning. Vit-DSS-Fe Fum-FA ( 19) 29-1 MG tablet 1 (one) time each day at the same time [DISCONTINUED] lisdexamfetamine (Vyvanse) 30 MG capsule Not Available Oral for 30 Days No current facility-administered medications on file prior to visit. Review of Systems Constitutional: Negative for chills and fever. Respiratory: Negative for shortness of breath. Cardiovascular: Negative for chest pain. Gastrointestinal: Negative for nausea and vomiting. Genitourinary: Negative for dysuria, pelvic pain and vaginal discharge. Neurological: Negative for dizziness and headaches. Objective BP 126/80 Wt 198 lb LMP 07/31/2024 BMI 33.46 kg/m Physical Exam Constitutional: Appearance: Normal appearance. Neurological: Mental Status: She is alert. Skin: General: Skin is warm and dry. Psychiatric: Mood and Affect: Mood normal. Assessment/Plan 1. Menometrorrhagia (Primary) Pelvic ultrasound to be scheduled and will discuss findings at the next office visit. After reviewing patient's chart. Pelvic ultrasound was done in 2019 and 2021 with complaints of menorrhagia and pelvic pain with no significant findings. Patient reports she always have heavy flow, however in the past few months, it lasted longer. Treatment/management options discussed: continue observation vs. Hormonal treatment (Progesterone IUD or combination OCP). Patient declined treatment at this time and states that she prefers not to be on any contraception at this time. Also discussed with patient of her family planning plan. Patient states that she would like to get , however unsure of when. Discussed the importance of trying to conceive sooner than later secondary to her age. Patient voiced understanding. 2. Family planning Recommended patient to start multivitamin or intake along with Iron supplements. Patient states she was told that she is not anemic 3. Dysmenorrhea 4. Hx of endometriosis documented in this encounterNevada Regional Medical [id number] Telephone encounter Note* Telephone Encounter - Brandt Lockett - 07/22/2024 11:13 AM EDT scheduled [facility] [id number] Miscellaneous Notes* Telephone Encounter - Brandt Lockett - 07/22/2024 11:13 AM EDT scheduled * Telephone Encounter - Supriya Benito LPN - 07/18/2024 3:39 PM EDT Referral from Dr. Disha Castillo to Dr. Batista for Menometrorrhagia, NEW patient, first available that is not back to back NEW patient or procedure spot documented in this encounterNevada Regional Medical [id number] Telephone encounter Note* Telephone Encounter - Supriya Benito LPN - 07/18/2024 3:39 PM EDT Referral from Dr. Disha Castillo to Dr. Batista for Menometrorrhagia, NEW patient, first available that is not back to back NEW patient or procedure spot [facility] [id number] History of Present illness Narrative* Hussain Streeter MD - 12/04/2023 11:30 AM EST Images from the original note were not included. Hussain Streeter MD Obstetrics and Gynecology Patient: Griselda Wright, : 1985 (37 y.o.) DOS 12/04/23 Exam Date: 12/04/2023 HPI: Pt c/o changes in her menses. She is not on BC. Her bleeding is monthly. She spots for several days, followed by 2-3 days of flow followed by more spotting. This is a change from her usual Visit Vitals BP 124/80 Wt 202 lb 3.2 oz LMP 12/01/2023 BMI 34.17 kg/m OB Status Having periods Smoking Status Never BSA 2.04 m OB History Para Term AB Living 0 0 0 0 0 0 SAB IAB Ectopic Multiple Live Births 0 0 0 0 0 Obstetric Comments Pap: 07/14-Neg DAVIS: HPV Neg No control; every month, scant to heavy blood loss, clots, LMP: 12/01/23 Medication and Allergies Medication Documentation Review Audit Reviewed by Celine Gomez MA (Business Lawyer) on 12/04/23 at 1120 Medication Order Taking? Sig Documenting Provider Last Dose Status Discontinued 12/04/23 1120 albuterol HFA 90 mcg/act inhaler [id number] inhale 1 puff every 4 hours if needed Hussain Streeter MD Active Discontinued 12/04/23 1120 cetirizine (ZyrTEC) 10 MG tablet [id number] Take 1 tablet by mouth in the morning. Hussain Streeter MDActive clonazePAM (KlonoPIN) 0.5 MG tablet [id number] take 1 tablet by mouth once daily if needed for SEVEREanxiety Hussain Streeter MD Active cyclobenzaprine (Flexeril) 5 MG tablet [id number] Take 5 mg by mouth as needed at bedtime Hussain Streeter MD Active desvenlafaxine (Pristiq) 100 MG 24 hr tablet [id number] Take 100 mg by mouth in the morning. Hussain Streeter MD Active fluticasone (Flonase Sensimist) 27.5 MCG/SPRAY nasal spray [id number] Administer 2 sprays into each nostril in the morning. Hussain Streeter MD Active Discontinued 12/04/23 1119 Discontinued 12/04/23 1119 lisdexamfetamine (Vyvanse) 30 MG capsule [id number] Not Available Oral for 30 Days Cate Kidd Multiple Vitamin (Multi-Vitamin) tablet [id number] Take 1 tablet by mouth in the morning. Hussain Streeter MD Active omega-3 1000 MG capsule capsule [id number] Take 1,000 mg by mouth in the morning. Hussain Streeter MD Active Vit-DSS-Fe Fum-FA ( 19) 29-1 MG tablet [id number] 1 (one) time each day at the same time Hussain Streeter MD Active Discontinued 12/04/23 1120 Allergies Allergen Reactions Levofloxacin Tendon issues Other reaction(s): tendon issues in heels Sulfamethoxazole-Trimethoprim Other reaction(s): All sulfa drugs - rash Cat Hair Extract Sulfa Antibiotics Rash History reviewed. No pertinent past medical history. Past Surgical History: Procedure Laterality Date OTHER SURGICAL HISTORY Polyp removed from colon Physical Exam: Objective Physical Exam Constitutional: Appearance: Normal appearance. Genitourinary: Vulva normal. No vaginal discharge. Right Adnexa: not palpable. No cervical lesion. Uterus is not enlarged or tender. Breasts: Right: Normal. Left: Normal. Pulmonary: Effort: Pulmonary effort is normal. Abdominal: Palpations: Abdomen is soft. Neurological: Mental Status: She is alert. Associated Treatments and Results - ICD-10-CM 1. Well female exam with routine gynecological exam Z01.419 2. Dysmenorrhea N94.6 Pt reassured she is normal Assessment/Plan documented [facility] this [facility] [id number] Evaluation note* Encounter Date Diagnosis Assessment Notes Treatment Notes Treatment Clinical Notes Oct, Frequent falls (ICD-10 - R29.6) agrees to MRI to r/o MS Oct, Costochondral chest pain (ICD-10 - R07.89) requests refill after fall Oct, Active asthma (ICD-10 - J45.909) agrees to advair for controller med Oct, Generalized anxiety disorder (ICD-10 - F41.1) Needs yearly referrals to [facility] Oct, Frequent menstruation (ICD-10 - N92.0) Needs yearly referral to Dr. Awan LIVELENZ Other 09-29-2023 Evaluation note* Encounter Date Diagnosis Assessment Notes Treatment Notes Treatment Clinical Notes Jun, Bronchitis (ICD-10 - J40) Complete antibiotics as directed Jun, Acute right-sided thoracic back pain (ICD-10 - M54.6) assess xray to r/o fracture. LIVELENZ Other 05-02-2023 Evaluation note* Encounter Date Diagnosis Assessment Notes Treatment Notes Treatment Clinical Notes February, Non-recurrent acute serous otitis media of both ears (ICD-10 - H65.03) Meds as prescribed with food. No swimming or submerging head under water. No Q tips in ear. Push fluids and rest. Otc tylenol and/or motrin prn for ear pain or fever. Pt to f/u with pcp as needed for persistent or recurrent sx. Pt understood and agreed to treatment plan. February, Acute non-recurrent maxillary sinusitis (ICD-10 - J01.00) Should be responsive to above med - will finish antibiotic. LIVELENZ Other 04-28-2023 Evaluation note* Encounter Date Diagnosis Assessment Notes Treatment Notes Treatment Clinical Notes Jan, Sore throat (ICD-10 - J02.9) Jan, Viral URI (ICD-10 - J06.9) Advised patient that COVID/Influenza A/B PCR test and rapid Strep test was negative today. Advised patient that will treat as viral URI. Send in Rx of Medrol Dosepak and Bromfed to use as directed. Supportive care as directed, increase fluids and rest, Tylenol/Motrin as directed, cool mist humidifier, throat lozenges. Discussed infection control practices such as good hand washing and mask wearing. Patient to follow up with PCP if symptoms persist or worsen despite treatment. Immediate eval for SOB, difficulty breathing, chest pain, fevers that do not break with antipyretic or any other concerning symptoms as reviewed on patient education handout. Patient verbalizes understanding and is agreeable to treatment plan. Patient left in stable condition. LIVELENZ Other 02-22-2023 Evaluation note* Encounter Date Diagnosis Assessment Notes Treatment Notes Treatment Clinical Notes Nov, Viral upper respiratory tract infection (ICD-10 - J06.9) Advised on [id number] COVID test. We will add these medicines to help with her cough. LIVELENZ Other 01-25-2023 Evaluation note* Encounter Date Diagnosis Assessment Notes Treatment Notes Treatment Clinical Notes Oct, Lumbar paraspinal muscle spasm (ICD-10 - M62.830) Oct, Need for vaccination (ICD-10 - Z23) Oct, Encounter for general adult medical examination without abnormal findings (ICD-10 - Z00.00) completed forms for childcare health assessment LIVELENZ Other 01-04-2023 NotePROCEDURE: XR FOREARM RT 2V HISTORY: Unspecified fall ; right forearm pain after falling COMPARISON: None. FINDINGS: BONES:No fracture, acute abnormality, or significant arthropathy. SOFT TISSUES:No visible soft tissue swelling. EFFUSION:None visible. OTHER: Negative. IMPRESSION: 1. No acute bone abnormality. Electronically authenticated by: WARNER CLAIRE Date: 2022-10-26 16:18[facility]11[facility]11[facility]21 History of Present illness Narrative* Drake Otoole MD - 09/02/2021 8:45 AM EST Subjective Patient ID: Griselda Wright is a 35 y.o. female. Patient is status post bilateral maxillary antrostomies as well as septoplasty and turbinoplasty performed July 02, 2021. She is here today for a postoperative check. [place] moved from [place]and [place] [facility]. She returns for her final review. Overall she has been doing quite well. She does feel her nose feels different inside and sometimes has pain. She is also still havingsome headaches. We had discussed prior to surgery that headache can be difficult to address simply with sinus or septal surgery and that there are many sources for headaches. Overall she is extremelypleased with how she is breathing. She is having no purulent discharge. No fevers. She is very pleased that she has not gotten a sinus infection this fall as she normally would. She is still using her rinses. Review of Systems Constitutional: Negative for diaphoresis and fever. HENT: Negative for congestion, nosebleeds and sinus pressure. Eyes: Negative. Respiratory: Negative. Cardiovascular: Negative. Negative for chest pain. Gastrointestinal: Negative. Neurological: Positive for headaches. Objective Physical Exam Vitals and nursing note reviewed. Constitutional: Appearance: Normal appearance. HENT: Head: Normocephalic and atraumatic. Jaw: No trismus. Salivary Glands: Right salivary gland is not diffusely enlarged. Left salivary gland is not diffusely enlarged. Right Ear: Tympanic membrane, ear canal and external ear normal. Left Ear: Tympanic membrane, ear canal and external ear normal. Nose: Nose normal. No septal deviation, mucosal edema or congestion. Mouth/Throat: Mouth: Mucous membranes are moist. Pharynx: Oropharynx is clear. Eyes: General: Vision grossly intact. Conjunctiva/sclera: Conjunctivae normal. Pulmonary: Effort: Pulmonary effort is normal. No respiratory distress. Breath sounds: No stridor. Musculoskeletal: Cervical back: Normal range of motion and neck supple. No rigidity. Lymphadenopathy: Cervical: No cervical adenopathy. Skin: General: Skin is warm and dry. Neurological: General: No focal deficit present. Mental Status: She is alert and oriented to person, place, and time. Cranial Nerves: No cranial nerve deficit. Psychiatric: Mood and Affect: Mood normal. Behavior: Behavior normal. Procedure: Nasopharyngoscopy - rigid Indications: Recent endoscopic sinus surgery, history of chronic sinusitis Anesthesia: Topical 4% lidocaine:phenylephrine Findings: Nasal Mucosa: Well-healed Septum: Grossly midline without perforation OMC's: Surgical antrostomies patent and without purulence or erythema or inspissated mucus Turbinates: Well-healed Nasopharynx/Fossa Rosenmuller: Clear Tolerated Well Assessment/Plan Diagnoses and all orders for this visit: Chronic maxillary sinusitis Nasal septal deviation Hypertrophy of nasal turbinates Would continue her nasal saline rinses pretty much regularly in ad infinitum. Would also recommend use of nasal steroid or nasal antihistamine sprays during her allergy seasons. To return as needed. If she decides to see an ENT in her new location she is more than welcome to call us and we will do what ever we can to provide records etc. documented in this [facility]11-11-2021 Instructions* Patient Instructions* Drake Otoole MD - 09/02/2021 8:45 AM EST - Continue rinses - Consider Flonase/steroid spray during times of allergy/congestion - Be GENTLE with your rinse! documented in this [facility]09-15-2021 History of Present illness Narrative* Drake Otoole MD - 07/07/2021 9:15 AM EDT Subjective Patient ID: Griselda Wright is a 35 y.o. female. Patient underwent bilateral maxillary antrostomies as well as septoplasty and turbinoplasty on 07/02/2021. She returns today. Her packing is still in place. She has been on postoperative antibiotics. She is having no significant difficulties. Review of Systems Constitutional: Positive for fatigue. Negative for fever. HENT: Positive for congestion (Bilateral nasal packs in place) and nosebleeds (Scant bloody discharge from the packing). Eyes: Negative for visual disturbance. Neurological: Negative for dizziness and facial asymmetry. Objective Physical Exam Procedure: Nasopharyngoscopy - rigid Indications: Nasal surgery with septoplasty and bilateral maxillary antrostomies Anesthesia: Topical 4% lidocaine:phenylephrine Findings: Nasal Mucosa: Healing well. Septum: Grossly straight without hematoma or perforation OMC's: No purulence or polyps, turbinates are well medialized and surgical antrostomies are widely open Turbinates: Inferior turbinates are healing well. Nasopharynx/Fossa Rosenmuller: Clear Tolerated Well Assessment/Plan Diagnoses and all orders for this visit: Chronic maxillary sinusitis Nasal septal deviation Looks great postop. Will start nasal saline rinses and will see her back in 8 weeks documented [facility] this [facility]St[facility] Instructions* Patient Instructions* Drake Otoole MD - 07/07/2021 9:15 AM EDT - Rinse with saline daily for the next 3-4 weeks. Rinse regularly with saline from that point forward - Avoid blowing nose hard for next 2 weeks - Return in 8 weeks for recheck documented in this encounterSt. [facility] Hospital Discharge instructions* Instructions* Drake Otoole MD - 07/02/2021 Post-Operative Patient Instructions: Sinus Surgery ? Diet: You may advance your diet as tolerated. ? Activity: Resume quiet activities as tolerated. School or work may be resumed once narcotic pain medications are not needed. No strenuous activity or heavy lifting for 10 days. You may begin to drive once you do not require narcotic pain medications. ? Bleeding: Some bloody drainage is very common postoperatively and not of concern. Please wear andchange your drip pad as necessary. If significant bleeding occurs, notify us immediately or call 911 and go to the emergency room. ? Congestion: Nasal congestion is common post-operatively. Do not blow the nose. Cough and sneeze with the mouth open. ? Nasal Packing: Do not remove it. If the packing does come out it is not an emergency. Please let us know the packing is out when you are able to do so by calling our office during business hours. ? Medications: One or more medications may be prescribed. Take them as directed. If you take any medication which thins your blood (prevents clotting) such as aspirin, Coumadin, Xarelto, Pradaxa, Eliquis, etc. make sure you understand when you may restart these medications after your surgery. ? Pain Medications: Most post-operative pain can be managed with Tylenol (acetaminophen) or Motrin (ibuprofen). Narcotic pain relievers should be used for breakthrough pain when over the counter painrelievers are not adequate. Please monitor for excess sedation if narcotic pain relievers are used and stop the medication if this occurs. Never take narcotic pain relievers more often than prescribed or at higher doses. Avoid using any other sedating medication when taking a narcotic pain reliever. For chronic pain you may utilize alternating doses of acetaminophen and ibuprofen. This can be done by alternating every 3 hours between doses (as an example: acetaminophen at 12:00, ibuprofen at 3:00, acetaminophen at 6:00, ibuprofen at 9:00 etc.). This provides 6 hours between each dose of acetaminophen and 6 hours between each dose of ibuprofen to prevent an overdose. The dosage should be based on the professor of art s recommended dose for the preparation you have, and your/your child s current weight. If you have any questions regarding this please contact us or discuss this with your pharmacist. While taking pain medications which contain Tylenol (acetaminophen) take care not to take other medications that also contain Tylenol (acetaminophen) as this could lead to an overdose and causeliver damage or . ? Nausea: Some nausea or limited vomiting within the first 24 hours after surgery is not uncommon as a result of your general anesthesia. This should resolve on its own. ? Fever: Low grade fevers are not unusual in the first few days after the surgery. As long as the fever is less than 101? F and responds to Tylenol, it is not of concern. If a sustained fever greaterthan 101? F occurs, or any fever occurs that does not respond to Tylenol, please contact your physician. Additional If you have a question or concern after the operation, please contact the office at [phone]. If it is after business hours, contact the hospital collar shaper operator at [phone] and ask for the ENT surgeon to be paged. Please inform the collar shaper operator that you recently underwent an operation. Please keep your scheduled follow-up appointment. If you cannot remember the date and time of your appointment please contact us immediately so you do not miss the appointment. IMPORTANT: If you feel that you are significantly ill, please do not wait to contact a physician. Go to the Emergency room immediately, or contact 911. documented in this encounterSt. [facility]09-[facility]-2021 NoteThis order was auto-finalized. Please see the relevant op note for procedure results.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 Endoscopic maxillary antrostomy with tissue removal, left(CPT Code 40320) 2). Endoscopic maxillary antrostomy with tissue removal, right (CPT Code 54868) * SEPTOPLASTY * TURBINOPLASTY Surgeons * Drake Otoole - Primary Procedure Summary Anesthesia: General ASA: II Estimated Blood Loss: 25 mL Total IV Fluids: 1000 mL Drains: * None in log * Staff: Air Drier: Laurie Tiwari RN Scrub Person: Yesika Edmond RN Indications: Griselda Wright is an 35 y.o. 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 FINDINGS: 1). 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 Thickened mucosa, maxillary antrums 3). Septal deviation 4). Inferior turbinate hypertrophy Procedure The patient was seen in the preoperative area. No substantive changes in history of present illnessor examination were noted. The risks, benefits, complications, treatment options, non-operative alternatives, expected recovery and outcomes had been previously discussed with the patient/family. The patient/family confirmed the operative site and were afforded additional time for questions regarding the procedure and risks. They concurred with the proposed plan, giving informed consent. The patient was then brought to the operating suite and placed supine on the operating table. A time-out was performed confirming the correct patient, procedure, side, site, and any allergies. Once adequate anesthesia was obtained the bed was rotated 90 and the patient was positioned for sinus surgery. Anterior rhinoscopy was performed, and the septum, inferior turbinates, superior turbinates, and uncinate processes were infiltrated with 1% lidocaine with epinephrine. Bilateral pledgets soaked with a 4% cocaine solution were then placed bilaterally. The patient was then prepped and draped in a standard fashion and the case was begun. The pledgets were removed from the left side of the nasalcavity, and a 0 endoscope was advanced into the nasal cavity. The middle turbinate was noted to have a large steph bullosa. The anterior edge was entered with the sickle knife, and the lateral wall was resected. The turbinate was then medialized with a [place] elevator, and an uncinectomy was performed with a sickle knife. This was completed inferiorly with straight scissors, and the remaining tissue was removed with the microdebrider. Utilizing a 30 angled scope and the backbiter, a maxillary antrostomy was performed. Great care was taken to ensure that the natural ostia was included in the antrostomy. This lateral tissue was removed and the maxillary sinus was then suctioned clear. The septal deviation was then addressed. A hemitransfixion incision was made on the left side. An ipsilateral mucoperichondrial flap was raised. The cartilage was penetrated and a contralateral mucoperichondrial flap was also raised. Care was taken to leave an adequate anterior strut for support. Utilizing the Suma forceps and a swivel knife, the deviated portion of the cartilaginous nasal septum was removed. Bilateral mucoperiosteal flaps were raised. The additional deviated portions of the bony septum were removed with the Suma forceps. The nasal cavity was then examined to ensureimproved patency. Reduced patency on the was noted secondary to inferior turbinate hypertrophy and the inferior turbinates were outfractured. The pledgets were removed from the right side of the nasal cavity, and a 0 endoscope was advanced into the nasal cavity. The middle turbinate was medialized with a [place] elevator, and an uncinectomy was performed with a sickle knife. This was completed inferiorly with straight scissors, and the remaining tissue was removed with the microdebrider. Utilizing a 30 angled scope and the backbiter, a maxillary antrostomy was performed. Great care was taken to ensure that the natural ostia was included in the antrostomy. This lateral tissue was removed and the maxillary sinus was then suctioned clear. Both sides of the nasal cavity were then carefully inspected and irrigated. The previously resectedcartilage from the septum was crushed and replaced and the hemitransfixion incision was closed withinterrupted 5-0 plain gut suture. The Middle turbinates were sewn to the septum with a through and through 4-0 plain gut suture. Mupirocin ointment was then placed in the dissection beds, and bilateral Sanches packs were placed. At this point the case was considered complete. The patient was then awakened from general anesthesia in a smooth fashion and returned to the PACU in stable condition. At the end of the case all counts were correct. Complications: None; patient tolerated the procedure well. Disposition: PACU - hemodynamically stable. Condition: stable Drake Otoole documented in this [facility]09-10-2021 History and physical note* Drake Otoole MD - 07/02/2021 7:26 AM EDT Physician Certification for Admission I expect the patient to be hospitalized for 0 midnights for medical treatment and services related to sinus surgery History Of Present Illness Reviewed with patient and without changes and reflects current state. Location: Patient with history of maxillary sinusitis symptoms Quality/Modifications: Patient recently seen for chronic sinusitis symptoms. She also has complaints of associated postnasal drip and chronic throat clearing. She has waxing and waning hoarseness. She has a longstanding history of steroid use for asthma. Multiple rounds of antibiotics for her symptoms of sinusitis. She is also been utilizing Flonase and Zyrtec. In view of her recalcitrant symptoms despite medical therapy she underwent a CT scan of the paranasal sinuses. This indicates a rightward septal deviation with a left steph bullosa, bilateral narrowing of the ostiomeatal complexes, and evidence of bilateral chronic maxillary sinus mucosal thickening. She has an incidental finding ofa small sphenoid mucocele which is nonobstructive. The remaining paranasal sinuses are clear. She has minimal right frontal sinus development. She is here today to discuss these results and treatmentoptions. Timing: Chronic Duration: Over the past 6 months Past Medical History She has a past medical history of Acute renal failure (ARF) ([facility] (2015), Allergic rhinitis, Anxiety, Asthma, Bipolar 1 disorder ([facility]), Depression, and Renal stones. Surgical History She has a past surgical history that includes Esophagogastroduodenoscopy; [place] tooth extraction; and Colonoscopy. Social History She reports that she has never smoked. She has never used smokeless tobacco. She reports current alcohol use. She reports that she does not use drugs. Family History Family History Problem Relation Name Age of Onset Other (gastrointestinal disease) Father Juan Alberto Hyperthermia Neg Hx Allergies Levofloxacin, Sulfamethoxazole-trimethoprim, Cat hair standardized allergenic extract, and Sulfa (sulfonamide antibiotics) Medications Current Outpatient Medications Medication Instructions albuterol (Ventolin HFA) 90 mcg/actuation inhaler 2 puffs, inhalation, Every 4 hours PRN azelastine (Astelin) 137 mcg (0.1 %) nasal spray 1-2 SPRAYS IN EACH NASAL PASSAGE TWO TIMES PER DAY cetirizine (ZyrTEC) 10 mg tablet 1 tablet, oral, Every 24 hours clonazePAM (KlonoPIN) 0.5 mg tablet 1 tablet, oral, As needed cyclobenzaprine (Flexeril) 10 mg tablet As needed desvenlafaxine (Pristiq) 50 mg 24 hr tablet 1 tablet, oral, Nightly diazePAM (Valium) 2 mg tablet 1 tablet, oral, As needed fluticasone (Flonase Allergy Relief) 50 mcg/actuation nasal spray 2 sprays, Each Nostril, Daily fluticasone propion-salmeteroL (Advair HFA) 115-21 mcg/actuation inhaler 2 puffs, inhalation, 2 times daily RT, Rinse mouth with water after use to reduce aftertaste and incidence of candidiasis. Do not swallow. guaiFENesin (MUCINEX) 1,200 mg, oral, 2 times daily, Do not crush, chew, or split. Juany Fe 11/11, , 1 mg-20 mcg (21)/75 mg (7) tablet No dose, route, or frequency recorded. ipratropium-albuteroL (Duo-Neb) 0.5-2.5 mg/3 mL nebulizer solution 3 mL, nebulization, 4 times daily PRN multivitamin tablet 1 tablet, oral, Daily nebulizer and compressor device 1 Device, nebulization, Every 4 hours, With Kit and Supplies for lifetime. To use with nebulizer medication every 4 hours as directed. DX: J45.50 Asthma omega-3 (Fish Oil) 1000 mg capsule 1,000 mg, oral, Daily Review of Systems Constitutional: Positive for fatigue. Negative for diaphoresis and fever. HENT: Positive for sinus pressure. Negative for congestion. Eyes: Negative. Respiratory: Positive for wheezing (asthma). Negative for apnea, choking and chest tightness. Cardiovascular: Negative. Gastrointestinal: Negative. Genitourinary: Negative. Hematological: Negative for adenopathy. Physical Exam Constitutional: Appearance: Normal appearance. She is normal weight. HENT: Head: Normocephalic and atraumatic. Right Ear: External ear normal. Left Ear: External ear normal. Nose: Septal deviation present. Right Turbinates: Enlarged. Left Turbinates: Enlarged. Mouth/Throat: Mouth: No oral lesions. Tongue: No lesions. Palate: No lesions. Pharynx: No oropharyngeal exudate or posterior oropharyngeal erythema. Cardiovascular: Rate and Rhythm: Normal rate and regular rhythm. Pulmonary: Effort: Pulmonary effort is normal. Breath sounds: Normal air entry. No stridor. Comments: Taking breathing treatment when at bedside Skin: General: Skin is warm and dry. Neurological: General: No focal deficit present. Mental Status: She is alert and oriented to person, place, and time. Cranial Nerves: No cranial nerve deficit. Psychiatric: Mood and Affect: Mood normal. Behavior: Behavior normal. Last Recorded Vitals Blood pressure 126/80, pulse 86, temperature (!) 35.9 C (96.6 F), temperature source Temporal, resp. rate 16, height 1.65 m (5' 4.96 ), weight 86.7 kg (191 lb 2.2 oz), SpO2 97 %. 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 We discussed surgical options as well consisting of FESS with possible septoplasty and possible turbinoplasties risks discussed included: - unsuccessful operation/failure to eliminate or reduce sinus symptoms - pain - infection - post-operative bleeding or septal hematoma - CSF leak requiring repair - damage to the eye, including loss of sight - permanent septal perforation - general anesthesia risks Alternatives including medical treatment and observation were discussed. All questions were answered. [facility] History of Present illness Narrative* Drake Otoole MD - 05/31/2021 8:00 AM EDT Subjective Patient ID: Griselda Wright is a 35 y.o. female. Location: Patient with history of maxillary sinusitis symptoms Quality/Modifications: Patient recently seen for chronic sinusitis symptoms. She also has complaints of associated postnasal drip and chronic throat clearing. She has waxing and waning hoarseness. She has a longstanding history of steroid use for asthma. Multiple rounds of antibiotics for her symptoms of sinusitis. She is also been utilizing Flonase and Zyrtec. In view of her recalcitrant symptoms despite medical therapy she underwent a CT scan of the paranasal sinuses. This indicates a rightward septal deviation with a left steph bullosa, bilateral narrowing of the ostiomeatal complexes, and evidence of bilateral chronic maxillary sinus mucosal thickening. She has an incidental finding ofa small sphenoid mucocele which is nonobstructive. The remaining paranasal sinuses are clear. She has minimal right frontal sinus development. She is here today to discuss these results and treatmentoptions. Timing: Chronic Duration: Over the past 6 months Review of Systems Constitutional: Positive for fatigue. HENT: Positive for congestion, sinus pressure and sinus pain. Negative for hearing loss. Eyes: Negative. Respiratory: Positive for wheezing. Negative for shortness of breath and stridor. Cardiovascular: Negative. Gastrointestinal: Negative. Neurological: Positive for headaches. Negative for seizures, facial asymmetry and speech difficulty. Hematological: Positive for adenopathy (Adenopathy has been resolving). Does not bruise/bleed easily. Objective Physical Exam Vitals and nursing note reviewed. Constitutional: General: She is not in acute distress. Appearance: Normal appearance. HENT: Head: Normocephalic and atraumatic. Right Ear: Tympanic membrane, ear canal and external ear normal. Left Ear: Tympanic membrane, ear canal and external ear normal. Nose: Septal deviation (Rightward deflection) and congestion present. Left Turbinates: Enlarged. Comments: Inferior turbinate hypertrophy Mouth/Throat: Mouth: Mucous membranes are moist. Pharynx: Oropharynx is clear. Eyes: General: Vision grossly intact. Conjunctiva/sclera: Conjunctivae normal. Cardiovascular: Rate and Rhythm: Normal rate and regular rhythm. Heart sounds: Normal heart sounds. Pulmonary: Effort: Pulmonary effort is normal. Breath sounds: Normal breath sounds. No stridor. Musculoskeletal: Cervical back: Normal range of motion and neck supple. No rigidity or tenderness. Skin: General: Skin is warm. Neurological: General: No focal deficit present. 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 We discussed surgical options as well consisting of FESS with possible septoplasty and possible turbinoplasties risks discussed included: - unsuccessful operation/failure to eliminate or reduce sinus symptoms - pain - infection - post-operative bleeding or septal hematoma - CSF leak requiring repair - damage to the eye, including loss of sight - permanent septal perforation - general anesthesia risks Alternatives including medical treatment and observation were discussed. All questions were answered. She would like to consider her options. She will continue medical therapy at this time. documented in this [facility]08-09[facility] Instructions* Patient Instructions* Drake Otoole MD - 05/31/2021 8:00 AM EDT - Continue nasal saline rinse - Restart Flonase and Astelin nasal spray - Contact us if you would like to consider the surgery we discussed (septoplasty with turbinoplastyand maxillary sinusotomy) documented in this encounterSt[facility] History of Present illness Narrative* Drake Otoole MD - 04/28/2021 9:00 AM EDT Subjective Patient ID: Griselda Wright is a 35 y.o. female. Location: Paranasal sinuses Quality/Modifications: Patient previously seen with symptoms of extensive postnasal drip and chronic throat clearing. Associated with this was some hoarseness which waxed and waned in intensity. She is a longstanding history of steroid use for asthma. She also received several rounds of antibioticslast year for repeated upper respiratory infections versus sinusitis. She is also been utilizing Flonase and Zyrtec for chronic nasal congestion. This recently worsened and she developed some associated palpable upper cervical lymphadenopathy. She was diagnosed with sinusitis and provided with amoxicillin as well as a 2nd round of erythromycin. Her symptoms continue with mid facial pressure and occluding pressure and pain over the maxillary sinuses. She has some pain in the left ear as well. Nochange in hearing. She was told she may have some fluid in her ears. Timing: Symptoms have been chronic Duration: Several months Review of Systems Constitutional: Positive for fatigue. Negative for fever. HENT: Positive for congestion, ear pain, sinus pressure and sinus pain. Eyes: Negative for pain, discharge and visual disturbance. Respiratory: Positive for wheezing. Negative for shortness of breath and stridor. Cardiovascular: Negative. Gastrointestinal: Negative. Negative for abdominal distention and abdominal pain. Skin: Negative. Neurological: Positive for headaches. Hematological: Positive for adenopathy. Psychiatric/Behavioral: The patient is nervous/anxious. Objective Physical Exam Vitals and nursing note reviewed. Constitutional: Appearance: Normal appearance. HENT: Head: Normocephalic and atraumatic. Jaw: There is normal jaw occlusion. Tenderness (Tenderness in the left temporomandibular joint) present. Salivary Glands: Right salivary gland is not diffusely enlarged. Left salivary gland is not diffusely enlarged. Right Ear: Tympanic membrane, ear canal and external ear normal. Left Ear: Tympanic membrane, ear canal and external ear normal. Mouth/Throat: Mouth: Mucous membranes are moist. Pharynx: Oropharynx is clear. Eyes: General: Vision grossly intact. Conjunctiva/sclera: Conjunctivae normal. Neck: Trachea: Phonation normal. No tracheal deviation. Cardiovascular: Rate and Rhythm: Normal rate and regular rhythm. Pulmonary: Effort: Pulmonary effort is normal. Breath sounds: Normal breath sounds. No stridor. Musculoskeletal: Cervical back: Normal range of motion and neck supple. Muscular tenderness (Tenderness along the left sternocleidomastoid muscle) present. Lymphadenopathy: Cervical: No cervical adenopathy. Skin: General: Skin is warm and dry. Neurological: General: No focal deficit present. Mental Status: She is alert. Cranial Nerves: No cranial nerve deficit. Motor: No weakness. Assessment/Plan Diagnoses and all orders for this visit: Chronic maxillary sinusitis - CT SINUS W NAVIGATION; Future Gastroesophageal reflux disease, unspecified whether esophagitis present She has been on several rounds of antibiotics this year and has been on chronic nasal steroid sprays. She had repeated upper respiratory infections last year as well. We will obtain a CT of the paranasal sinuses to determine the extent and location of any mucosal disease or obstructive processes. We also discussed reflux signs and symptoms and that heartburn is often not associated with the effects of extra esophageal reflux disease. We discussed lifestyle modifications. We will continue our discussion and consider medical therapy as well when she returns to discuss her CT results documented in this [facility]07-07-2021 Instructions* Patient Instructions* Drake Otoole MD - 04/28/2021 9:00 AM EDT - Work with your dentist for your TMJ pain - Soft diet and light stretching and heat may help TMJ pain - Please obtain your sinus CT as we discussed - Please continue your current medications as prescribed documented in this [facility]06-23-2021 History of Present illness Narrative* Pradeep Champion MD - 04/14/2021 2:00 PM EDT Pt just finished Steroid and Antibiotic recently. Subjective Patient ID: Griselda Wright is a 35 y.o. female. Chief Complaint Patient presents with Asthma 3 mo f/u Pt is here for F/U Asthma. Was recently treated for URI/pharyngitis and Lymphadenitis with 2 courses of Atbx/steroids(Amoxicillin and Z-pack). (+)Increased postnasal drainage and clear rhinorrhea. (+)Ear fullness, facial discomfort/sinus congestion//pressure. Sx are a little relieved with use of Flonase spray and Zyrtec-D. (+)Occasional wheezing tracey. At night Compliant with BID use of Advair inhaler and daily Duoneb Rx. Visit Vitals BP 134/88 Pulse 95 Temp 36.3 C (97.3 F) Resp 12 Ht 1.651 m (5' 5 ) Wt 86.2 kg (190 lb) SpO2 99% BMI 31.62 kg/m Smoking Status Never Smoker BSA 1.94 m Allergies Allergen Reactions Levofloxacin Other reaction(s): tendon issues in heels Sulfamethoxazole-Trimethoprim Other reaction(s): All sulfa drugs - rash The following portions of the chart were reviewed this encounter and updated as appropriate: Past Medical History: Diagnosis Date Acute renal failure (ARF) ([facility]) 2014 Allergic rhinitis Anxiety Asthma Bipolar 1 disorder ([facility]) Depression Renal stones Past Surgical History: Procedure Laterality Date COLONOSCOPY ESOPHAGOGASTRODUODENOSCOPY WISDOM TOOTH EXTRACTION Social History Tobacco Use Smoking status: Never Smoker Smokeless tobacco: Never Used Substance Use Topics Alcohol use: Never Drug use: Never Family History Problem Relation Name Age of Onset Other (gastrointestinal disease) Father Current Outpatient Medications Medication Sig Dispense Refill albuterol (Ventolin HFA) 90 mcg/actuation inhaler Inhale 2 puffs every 4 (four) hours if needed forshortness of breath. 54 g 3 azelastine (Astelin) 137 mcg (0.1 %) nasal spray 1-2 SPRAYS IN EACH NASAL PASSAGE TWO TIMES PER DAY budesonide-formoteroL (Symbicort) 80-4.5 mcg/actuation inhaler Inhale 2 puffs 2 (two) times a day. Rinse mouth with water after use to reduce aftertaste and incidence of candidiasis. Do not swallow. (Patient not taking: Reported on 03/15/2021) 1 Inhaler 11 cetirizine (ZyrTEC) 10 mg tablet Take 1 tablet by mouth 1 (one) time each day at the same time. clonazePAM (KlonoPIN) 0.5 mg tablet Take 1 tablet by mouth if needed. cyclobenzaprine (Flexeril) 10 mg tablet As needed desvenlafaxine (Pristiq) 50 mg 24 hr tablet Take 1 tablet by mouth every night. fluticasone (Flonase Allergy Relief) 50 mcg/actuation nasal spray Administer 2 sprays into each nostril 1 (one) time each day. fluticasone propion-salmeteroL (Advair HFA) 115-21 mcg/actuation inhaler Inhale 2 puffs 2 (two) times a day. Rinse mouth with water after use to reduce aftertaste and incidence of candidiasis. Do notswallow. 36 g 3 fluticasone propion-salmeteroL (Advair HFA) 45-21 mcg/actuation inhaler Inhale 2 puffs 2 (two) times a day. Use with spacer ipratropium-albuteroL (Duo-Neb) 0.5-2.5 mg/3 mL nebulizer solution Take 3 mL by nebulization 4 (four) times a day if needed for wheezing or shortness of breath. 360 mL 4 levonorgestreL-ethinyl estrad (Jolessa) 0.15 mg-30 mcg (91) tablet Take 1 tablet by mouth 1 (one) time each day at the same time. nebulizer and compressor device Take 1 Device by nebulization every 4 (four) hours. With Kit and Supplies for lifetime. To use with nebulizer medication every 4 hours as directed. DX: J45.50 Asthma 1each 0 nebulizer and compressor device 1 Device every 4 (four) hours if needed (Use as directed by physician). DX: J45.909 Asthma With kit and supplies for lifetime 1 each 0 triamcinolone (Kenalog) 0.1 % cream Apply a thin layer to the affected areas by topical route 2 times per day as needed No current facility-administered medications for this visit. Review of Systems Constitutional: Positive for fatigue. Negative for activity change, appetite change, chills, diaphoresis, fever and unexpected weight change. HENT: Positive for congestion, ear pain, facial swelling, postnasal drip, sinus pressure, sinus pain, sore throat and trouble swallowing. Negative for dental problem, drooling, ear discharge, hearingloss, mouth sores, nosebleeds, rhinorrhea, sneezing, tinnitus and voice change. Eyes: Positive for discharge. Negative for photophobia, pain, redness, itching and visual disturbance. Respiratory: Positive for cough, shortness of breath and wheezing. Negative for apnea, choking, chest tightness and stridor. Occasional dry cough Cardiovascular: Negative. Gastrointestinal: Negative. Neurological: Positive for headaches. Objective Physical Exam Vitals and nursing note reviewed. Constitutional: General: She is awake. She is not in acute distress. Appearance: Normal appearance. She is well-developed and well-groomed. She is obese. She is not ill-appearing, toxic-appearing or diaphoretic. Interventions: She is not intubated. HENT: Head: Normocephalic and atraumatic. Mouth/Throat: Mouth: Mucous membranes are moist. Pharynx: Oropharynx is clear. Posterior oropharyngeal erythema present. No oropharyngeal exudate. Eyes: General: No scleral icterus. Extraocular Movements: Extraocular movements intact. Conjunctiva/sclera: Conjunctivae normal. Pupils: Pupils are equal, round, and reactive to light. Cardiovascular: Rate and Rhythm: Normal rate and regular rhythm. Pulses: Normal pulses. Heart sounds: Normal heart sounds, S1 normal and S2 normal. Heart sounds not distant. No murmur. Nofriction rub. No gallop. Pulmonary: Effort: Pulmonary effort is normal. No tachypnea, bradypnea, accessory muscle usage, prolonged expiration, respiratory distress or retractions. She is not intubated. Breath sounds: Normal breath sounds and air entry. No stridor, decreased air movement or transmitted upper airway sounds. No decreased breath sounds, wheezing, rhonchi or rales. Chest: Chest wall: No tenderness. Musculoskeletal: General: Normal range of motion. Cervical back: Normal range of motion and neck supple. No tenderness. Lymphadenopathy: Cervical: No cervical adenopathy. Skin: General: Skin is warm and dry. Capillary Refill: Capillary refill takes less than 2 seconds. Coloration: Skin is not jaundiced or pale. Findings: No bruising, erythema or rash. Neurological: General: No focal deficit present. Mental Status: She is alert and oriented to person, place, and time. Mental status is at baseline. Cranial Nerves: Cranial nerves are intact. No cranial nerve deficit, dysarthria or facial asymmetry. Psychiatric: Attention and Perception: Attention and perception normal. Mood and Affect: Mood and affect normal. Speech: Speech normal. Behavior: Behavior normal. Behavior is cooperative. Thought Content: Thought content normal. Cognition and Memory: Cognition normal. Judgment: Judgment normal. Assessment/Plan Diagnoses and all orders for this visit: Moderate persistent chronic asthma without complication Upper respiratory tract infection, unspecified type Cont. Current Rx plan for asthma(inhalers--Advair, prn Ventolin and Duoneb BID and Q4hrs prn emergencies), Her sx are relatively well controlled--moderate persistent in severity.. Ok refills inhalers/Neb solution if required. Add Mucinex 600mg PO BID to enhance sputum clearance. Persistent sinonasal sx/ear pain following completion of Atbx/steroids. Advise cont. Flonase spray and Zyrtec-D and schedule office appt for re- assessment/visit with ENT--Dr. Otoole documented in this [facility]St[facility] History of Present illness Narrative* Guillermo Nguyen, PHYSICIAN-BUSHING PRESS OPERATOR - 03/30/2021 3:00 PM EDT Griselda Wright, is a 35 y.o., female Patient comes in complaining of sore throat and swollen lymph nodes for the past month. Patient wasseen on 03/15 and diagnosed with sinusitis. Patient was given Augmentin and took to completion. Denies any sinus drainage or ear pain at this time. States that she is noted decreased and posterior cervical lymphadenopathy but still has the anterior cervical swollen lymph nodes. States that it does ca use mild pain at times. Respirations even unlabored. No acute distress. Mild tenderness to palpation. Patient denies any fever sweats or chills. Taking [id number] antihistamine, decongestant and NSAIDs without complete relief. Review of Systems HENT: Positive for sore throat. All other systems reviewed and are negative. Past Medical History: Diagnosis Date Acute renal failure (ARF) ([facility]) 2015 Allergic rhinitis Anxiety Asthma Bipolar 1 disorder ([facility]) Depression Renal stones Past Surgical History: Procedure Laterality Date COLONOSCOPY ESOPHAGOGASTRODUODENOSCOPY WISDOM TOOTH EXTRACTION Family History Problem Relation Name Age of Onset Other (gastrointestinal disease) Father Social History Socioeconomic History Marital status: Spouse name: Not on file Number of children: Not on file Years of education: Not on file Highest education level: Not on file Occupational History Not on file Tobacco Use Smoking status: Never Smoker Smokeless tobacco: Never Used Substance and Sexual Activity Alcohol use: Never Drug use: Never Sexual activity: Defer Other Topics Concern Not on file Social History Narrative Not on file Social Determinants of Health Financial Resource Strain: Difficulty of Paying Living Expenses: Not on file Food Insecurity: Worried About Running Out of Food in the Last Year: Not on file Ran Out of Food in the Last Year: Not on file Transportation Needs: Lack of Transportation (Medical): Not on file Lack of Transportation (Non-Medical): Not on file Physical Activity: Days of Exercise per Week: Not on file Minutes of Exercise per Session: Not on file Stress: Feeling of Stress : Not on file Social Connections: Frequency of Communication with Friends and Family: Not on file Frequency of Social Gatherings with Friends and Family: Not on file Attends Confucianism Services: Not on file Active Member of Clubs or Organizations: Not on file Attends Club or Organization Meetings: Not on file Marital Status: Not on file Intimate Partner Violence: Fear of Current or Ex-Partner: Not on file Emotionally Abused: Not on file Physically Abused: Not on file Sexually Abused: Not on file Current Outpatient Medications Medication Sig Dispense Refill albuterol (Ventolin HFA) 90 mcg/actuation inhaler Inhale 2 puffs every 4 (four) hours if needed forshortness of breath. 54 g 3 azelastine (Astelin) 137 mcg (0.1 %) nasal spray 1-2 SPRAYS IN EACH NASAL PASSAGE TWO TIMES PER DAY cetirizine (ZyrTEC) 10 mg tablet Take 1 tablet by mouth 1 (one) time each day at the same time. clonazePAM (KlonoPIN) 0.5 mg tablet Take 1 tablet by mouth if needed. cyclobenzaprine (Flexeril) 10 mg tablet As needed desvenlafaxine (Pristiq) 50 mg 24 hr tablet Take 1 tablet by mouth every night. fluticasone (Flonase Allergy Relief) 50 mcg/actuation nasal spray Administer 2 sprays into each nostril 1 (one) time each day. fluticasone propion-salmeteroL (Advair HFA) 115-21 mcg/actuation inhaler Inhale 2 puffs 2 (two) times a day. Rinse mouth with water after use to reduce aftertaste and incidence of candidiasis. Do notswallow. 36 g 3 fluticasone propion-salmeteroL (Advair HFA) 45-21 mcg/actuation inhaler Inhale 2 puffs 2 (two) times a day. Use with spacer ipratropium-albuteroL (Duo-Neb) 0.5-2.5 mg/3 mL nebulizer solution Take 3 mL by nebulization 4 (four) times a day if needed for wheezing or shortness of breath. 360 mL 4 levonorgestreL-ethinyl estrad (Jolessa) 0.15 mg-30 mcg (91) tablet Take 1 tablet by mouth 1 (one) time each day at the same time. nebulizer and compressor device Take 1 Device by nebulization every 4 (four) hours. With Kit and Supplies for lifetime. To use with nebulizer medication every 4 hours as directed. DX: J45.50 Asthma 1each 0 nebulizer and compressor device 1 Device every 4 (four) hours if needed (Use as directed by physician). DX: J45.909 Asthma With kit and supplies for lifetime 1 each 0 triamcinolone (Kenalog) 0.1 % cream Apply a thin layer to the affected areas by topical route 2 times per day as needed budesonide-formoteroL (Symbicort) 80-4.5 mcg/actuation inhaler Inhale 2 puffs 2 (two) times a day. Rinse mouth with water after use to reduce aftertaste and incidence of candidiasis. Do not swallow. (Patient not taking: Reported on 03/15/2021) 1 Inhaler 11 No current facility-administered medications for this visit. Allergies Allergen Reactions Levofloxacin Other reaction(s): tendon issues in heels Sulfamethoxazole-Trimethoprim Other reaction(s): All sulfa drugs - rash Nursing notes reviewed. Physical Exam Vitals and nursing note reviewed. Constitutional: Appearance: Normal appearance. HENT: Head: Normocephalic. Right Ear: Tympanic membrane, ear canal and external ear normal. Left Ear: Tympanic membrane, ear canal and external ear normal. Nose: Nose normal. Mouth/Throat: Mouth: Mucous membranes are moist. Pharynx: Oropharynx is clear. Eyes: Extraocular Movements: Extraocular movements intact. Conjunctiva/sclera: Conjunctivae normal. Pupils: Pupils are equal, round, and reactive to light. Neck: Trachea: Trachea and phonation normal. Cardiovascular: Rate and Rhythm: Normal rate and regular rhythm. Pulses: Normal pulses. Heart sounds: Normal heart sounds. No murmur. Pulmonary: Effort: Pulmonary effort is normal. No respiratory distress. Breath sounds: Normal breath sounds. No stridor. No wheezing, rhonchi or rales. Chest: Chest wall: No tenderness. Abdominal: General: Abdomen is flat. Bowel sounds are normal. Palpations: Abdomen is soft. Musculoskeletal: General: Normal range of motion. Cervical back: Normal range of motion. Lymphadenopathy: Cervical: Cervical adenopathy present. Right cervical: Superficial cervical adenopathy present. Left cervical: Superficial cervical adenopathy present. Skin: General: Skin is warm and dry. Capillary Refill: Capillary refill takes less than 2 seconds. Neurological: General: No focal deficit present. Mental Status: She is alert and oriented to person, place, and time. Psychiatric: Mood and Affect: Mood normal. Visit Vitals BP 158/88 Pulse 75 Temp 36.2 C (97.1 F) Resp 16 SpO2 96% Smoking Status Never Smoker No results found for this or any previous visit (from the past 24 hour(s)). No orders to display Procedures Assessment/Plan Diagnoses and all orders for this visit: Cervical lymphadenopathy - dexamethasone (Decadron) 4 mg/mL oral liquid 10 mg * Anayeli Sparrow LPN - 03/30/2021 3:00 PM EDT Pt c/o swollen lymph nodes. Pt states feeling light headed as well. Pt states swelling for about 4 weeks. Pt states she was seen 03/15/21 for same documented in this [facility]05-24-2021 History of Present illness Narrative* Patrick Guillermo R, PHYSICIAN-BUSHING PRESS OPERATOR - 03/15/2021 5:45 PM EDT Griselda Wright, is a 35 y.o., female Patient comes in complaining of fatigue, headache and swollen lymph nodes for the past 2 weeks. Patient has been taking qaeo-khh-lrwtyls medications without relief. Denies any cough, shortness of breath, difficulty breathing abdominal pain nausea vomiting diarrhea constipation vaginal discharge or bleeding or dysuria. Respirations even and unlabored. No acute distress. Denies any difficulty swallowing or eating. Review of Systems Constitutional: Positive for fatigue. Negative for chills and fever. HENT: Positive for congestion, rhinorrhea, sinus pressure, sinus pain and sore throat. Neurological: Positive for headaches. All other systems reviewed and are negative. Past Medical History: Diagnosis Date Acute renal failure (ARF) ([facility]) 2014 Allergic rhinitis Anxiety Asthma Bipolar 1 disorder ([facility]) Depression Renal stones Past Surgical History: Procedure Laterality Date COLONOSCOPY ESOPHAGOGASTRODUODENOSCOPY WISDOM TOOTH EXTRACTION Family History Problem Relation Name Age of Onset Other (gastrointestinal disease) Father Social History Socioeconomic History Marital status: Spouse name: Not on file Number of children: Not on file Years of education: Not on file Highest education level: Not on file Occupational History Not on file Tobacco Use Smoking status: Never Smoker Smokeless tobacco: Never Used Substance and Sexual Activity Alcohol use: Never Drug use: Never Sexual activity: Defer Other Topics Concern Not on file Social History Narrative Not on file Social Determinants of Health Financial Resource Strain: Difficulty of Paying Living Expenses: Not on file Food Insecurity: Worried About Running Out of Food in the Last Year: Not on file Ran Out of Food in the Last Year: Not on file Transportation Needs: Lack of Transportation (Medical): Not on file Lack of Transportation (Non-Medical): Not on file Physical Activity: Days of Exercise per Week: Not on file Minutes of Exercise per Session: Not on file Stress: Feeling of Stress : Not on file Social Connections: Frequency of Communication with Friends and Family: Not on file Frequency of Social Gatherings with Friends and Family: Not on file Attends Confucianism Services: Not on file Active Member of Clubs or Organizations: Not on file Attends Club or Organization Meetings: Not on file Marital Status: Not on file Intimate Partner Violence: Fear of Current or Ex-Partner: Not on file Emotionally Abused: Not on file Physically Abused: Not on file Sexually Abused: Not on file Current Outpatient Medications Medication Sig Dispense Refill albuterol (Ventolin HFA) 90 mcg/actuation inhaler Inhale 2 puffs every 4 (four) hours if needed forshortness of breath. 54 g 3 azelastine (Astelin) 137 mcg (0.1 %) nasal spray 1-2 SPRAYS IN EACH NASAL PASSAGE TWO TIMES PER DAY cetirizine (ZyrTEC) 10 mg tablet Take 1 tablet by mouth 1 (one) time each day at the same time. clonazePAM (KlonoPIN) 0.5 mg tablet Take 1 tablet by mouth if needed. cyclobenzaprine (Flexeril) 10 mg tablet As needed desvenlafaxine (Pristiq) 50 mg 24 hr tablet Take 1 tablet by mouth every night. fluticasone (Flonase Allergy Relief) 50 mcg/actuation nasal spray Administer 2 sprays into each nostril 1 (one) time each day. fluticasone propion-salmeteroL (Advair HFA) 45-21 mcg/actuation inhaler Inhale 2 puffs 2 (two) times a day. Use with spacer ipratropium-albuteroL (Duo-Neb) 0.5-2.5 mg/3 mL nebulizer solution Take 3 mL by nebulization 4 (four) times a day if needed for wheezing or shortness of breath. 360 mL 4 levonorgestreL-ethinyl estrad (Jolessa) 0.15 mg-30 mcg (91) tablet Take 1 tablet by mouth 1 (one) time each day at the same time. amoxicillin-pot clavulanate (Augmentin) 875-125 mg tablet Take 1 tablet by mouth 2 (two) times a day for 7 days. 14 tablet 0 budesonide-formoteroL (Symbicort) 80-4.5 mcg/actuation inhaler Inhale 2 puffs 2 (two) times a day. Rinse mouth with water after use to reduce aftertaste and incidence of candidiasis. Do not swallow. (Patient not taking: Reported on 03/15/2021) 1 Inhaler 11 fluticasone propion-salmeteroL (Advair HFA) 115-21 mcg/actuation inhaler Inhale 2 puffs 2 (two) times a day. Rinse mouth with water after use to reduce aftertaste and incidence of candidiasis. Do notswallow. 36 g 3 nebulizer and compressor device Take 1 Device by nebulization every 4 (four) hours. With Kit and Supplies for lifetime. To use with nebulizer medication every 4 hours as directed. DX: J45.50 Asthma 1each 0 nebulizer and compressor device 1 Device every 4 (four) hours if needed (Use as directed by physician). DX: J45.909 Asthma With kit and supplies for lifetime 1 each 0 triamcinolone (Kenalog) 0.1 % cream Apply a thin layer to the affected areas by topical route 2 times per day as needed No current facility-administered medications for this visit. Allergies Allergen Reactions Levofloxacin Other reaction(s): tendon issues in heels Sulfamethoxazole-Trimethoprim Other reaction(s): All sulfa drugs - rash Nursing notes reviewed. Physical Exam Vitals and nursing note reviewed. Constitutional: Appearance: Normal appearance. HENT: Head: Normocephalic. Right Ear: Hearing, tympanic membrane, ear canal and external ear normal. Left Ear: Hearing, tympanic membrane, ear canal and external ear normal. Nose: Rhinorrhea present. Rhinorrhea is clear. Right Sinus: Maxillary sinus tenderness and frontal sinus tenderness present. Left Sinus: Maxillary sinus tenderness and frontal sinus tenderness present. Mouth/Throat: Lips: [place]. Mouth: Mucous membranes are moist. Pharynx: Oropharynx is clear. Uvula midline. No pharyngeal swelling, oropharyngeal exudate, posterior oropharyngeal erythema or uvula swelling. Tonsils: No tonsillar exudate. Cardiovascular: Rate and Rhythm: Normal rate and regular rhythm. Pulses: Normal pulses. Heart sounds: Normal heart sounds. Pulmonary: Effort: Pulmonary effort is normal. No respiratory distress. Breath sounds: Normal breath sounds. No decreased breath sounds, wheezing, rhonchi or rales. Musculoskeletal: General: Normal range of motion. Cervical back: Normal range of motion. Skin: General: Skin is warm and dry. Neurological: General: No focal deficit present. Mental Status: She is alert and oriented to person, place, and time. GCS: GCS eye subscore is 4. GCS verbal subscore is 5. GCS motor subscore is 6. Cranial Nerves: Cranial nerves are intact. Sensory: Sensation is intact. Motor: Motor function is intact. Coordination: Coordination is intact. Gait: Gait is intact. Psychiatric: Mood and Affect: Mood normal. Visit Vitals Pulse 91 Temp 36.4 C (97.5 F) Resp 19 SpO2 96% Smoking Status Never Smoker No results found for this or any previous visit (from the past 24 hour(s)). No orders to display Procedures Assessment/Plan Diagnoses and all orders for this visit: Acute non-recurrent pansinusitis - amoxicillin-pot clavulanate (Augmentin) 875-125 mg tablet; Take 1 tablet by mouth 2 (two) times aday for 7 days. * Hortencia Verma LPN - 03/15/2021 5:45 PM EDT Patient presents today with 2 week hx of BAILEY, fatigue and sinus pressure. Patient also reports tender scalp. [facility] Instructions* Patient Instructions* Guillermo Nguyen APRN-CNP - 03/15/2021 5:45 PM EDT Patient Education Sinusitis (Sinus Infection; Acute Sinusitis; Chronic Sinusitis; Rhinosinusitis) Definition Sinusitis is inflammation of the sinus cavities. The sinus cavities are air- filled spaces in the skull. It is usually associated with infection. Sinusitis is called acute if it lasts for less than 4 weeks, subacute if it lasts 4 to 12 weeks, and chronic if symptoms last for more than 3 months. You may have recurrent sinusitis if you have repeated bouts of acute sinusitis. Sinus Infection Copyright [employer] Causes Infectious sinusitis is caused by a viral, bacterial, or (rarely) fungal infection of fluid in the sinus cavities. Infections are usually associated with acute sinusitis more than chronic. Risk Factors Factors that may increase your chance of sinusitis include: Recent viral infection Smoking or exposure to second-hand smoke Other sources of indoor or outdoor air pollution Allergies or asthma Abnormalities of the facial bones, sinuses, or nasal passages, such as: ? Deviated septum ? Nasal polyps ? Cleft palate ? Large adenoids Certain chronic illnesses, including: ? Cystic fibrosis ? Kartagener syndrome (a chronic lung disease) and immotile cilia syndrome ? Granulomatosis with polyangiitis rare disease that causes blood vessel dumont to become inflamed ? Sarcoidosis HIV infection and other disorders of the immune system Diabetes Head injury or a medical condition requiring a tube to be inserted into the nose Cocaine and other drugs inhaled through the nose Symptoms Sinusitis may cause: Facial congestion or fullness Facial pain or pressure that increases when you bend over or press on the area Headache Cough, which is often worse at night Nasal congestion not responding well to either decongestants or antihistamines Runny nose or postnasal drip Thick, yellow, or green mucus Bad breath Ear pain, pressure, or fullness Fever Fatigue Dental pain Initial improvement with sudden worsening of symptoms over the course of a few weeks Diagnosis Your doctor will ask about your symptoms and medical history. A physical exam will be done. Sinusitis is diagnosed based on its symptoms and tenderness of the sinuses when pressed. Tests may include: Holding a flashlight up to the sinuses to see if they light up CT scan or x-ray of the sinuses to look for fluid in the sinus Endoscopic examination of the sinuses threading a tiny, lighted tube into the nasal cavities to view the sinus opening Removing sinus fluid through a needle for testing (rare) You have may acute sinusitis when the following occurs: History of 10 or more days of colored mucous, or visibly infected mucus Tenderness over the sinuses Fever Difficulty smelling Treatment Most sinus infections are caused by a virus and will pass on their own in 7-10 days. Home care and medications can help manage symptoms. Infections that last longer or keep coming back may need more care. Home Care Secretions can build up in the nasal and sinus passages. This can add to pressure and pain. Secretions can be loosened with: Drinking throughout the day Nasal and sinus washes Steam treatments may include humidifier running in your bedroom or inhaling steam from bowl of hot water Medications Medicine may help manage symptoms until the sinusitis passes. Options may include: Thkr-yya-abcsqnm pain relievers. ? Note: Aspirin is not recommended for children with a current or recent viral infection. Check with your doctor before giving your child aspirin. Antihistamines to manage related allergies Intranasal corticosteroids may decrease swelling in the lining of the nose in people with allergies Decongestants to shrink nasal passages. Do not use nasal sprays for longer than 3 to 4 days in a row. Antibiotics are only effective for specific sinus infections. If a sinus infection lasts longer than expected or keeps coming back the doctor may suspect a bacterial infection and recommend antibiotics. Surgery Surgery may be recommended if above treatments have not provided relief for very troublesome, serious chronic sinusitis. Options may include 1 or more of the following: Repair of a deviated septum Removal of nasal polyps Functional endoscopic sinus surgery enlarge the sinuses to improve drainage Balloon sinuplasty to open the sinus passages Prevention To help reduce your chance of sinusitis: Have allergy testing to find out what things you are allergic to and to learn how to treat your allergies. ? Avoid substances that you know you are allergic to ? Stick with your allergy treatment plan If you get a cold, drink lots of fluids and use a decongestant. Use sinus washes as directed. Blow your nose gently, while pressing 1 nostril closed. If you must travel by air, use a nasal spray decongestant to decrease inflammation prior to takeoffand landing. Use a humidifier when you have a cold, allergic symptoms, or sinusitis. Use HEPA filters for your furnace and vacuum still cleaner to remove allergens from the air. Avoid cigarette smoke. Last Reviewed: June 2020 [facility] Medical Review Board Izabel Spann RN Updated: 11/20/2020 [facility] Miscellaneous Notes* ED Attestation Note - Julito Koehler MD - 02/14/2021 1:01 PM EDT I personally interviewed the patient. I personally examined the patient. I discussed the patient with midlevel provider. I agree with the midlevel's treatment plan. I agree with the midlevel's plan of care. I agree with the midlevel's dispo as documented. HPI / PE / MDM: 35yo F here with bilateral back pain for 1.5 weeks. She went to an recently and was told her creatinine was elevated. She states she was given some pill to turn her urine orange. Her creatinine was 0.9. She had some blood in her urine when she was at upon our viewing. She has had chest pain described as electrical shocks for months now. She overall appears well, I did review her records with her at urgent care and told her that her kidney function was completely fine and I did not see anyabnormalities with it. I am also not sure why they put her on Pyridium. Her pain is clearly musculoskeletal on her back, goes in a V shape from the low back up to the lower thoracic area, is reprodu cible on exam, is bilateral, and is paraspinal. Advised stretching and anti- inflammatories as well as Tylenol for this if needed, as well as warm baths or heating pads to the area. Just pending her urinalysis for discharge home. Patient's urine sample is questionable, a lot of squamous cells but she does have a lot of white blood cells and leukocyte Estrace. We will culture her urine, start her on Macrobid as my concern for pyonephritis is very low as she has no other symptoms other than back pain which I think is musculoskeletal. documented in this [id number] Emergency department Note* Shade Vaz CNP - 02/14/2021 11:47 AM EDT PCP - Renay Younger CNP Chief Complaint Patient presents with Flank Pain Back Pain Chest Pain HPI This is a 35-year-old female who presents to the ER complaining of flank pain and back pain. She actually was seen in urgent care about a week ago for the same complaints. She tells me is been going on for about a week and a half, intermittent complains of pain bilaterally to her flank. She had no fall or trauma. She denies any heavy lifting or injury. She denies any history of kidney problems. However while at urgent care she did have blood in her urine no infection. She also did have creatinine that she states was elevated. In reviewing in [facility] it was 0.9 her creatinine. She has not had anynausea or vomiting. She states she has chest pains intermittently for a long period of time. She describes them as a lightening bolt sensations that radiate down both arms. It was happening again theother day so she just wanted to be seen for that as well. She has no current chest pain at this time. No fever cough or cold symptoms. She denies actual dysuria. She did tell me that they gave her I think Pyridium due to she calls at the orange pills that make her urine orange. No other complaints this time. Review of Systems Constitutional: no fevers Skin: No rash Eyes: No discharge ENMT: No hemoptysis Genitourinary: no obstructive symptoms Endocrine: no polyuria Neurologic: no new numbness Psychiatric: No hallucinations Hematologic/Lymphatic: No abnormal bruising Allergic/Immunologic: no urticaria Other pertinent positives and negatives in HPI Previous Records Reviewed Past Medical History Past Medical History: Diagnosis Date Asthma Hypoglycemia Kidney stone Renal disorder [facility] 08/2015 Past Surgical History Past Surgical History: Procedure Laterality Date COLONOSCOPY UPPER GASTROINTESTINAL ENDOSCOPY WISDOM TOOTH EXTRACTION Family History History reviewed. No pertinent family history. Social History Social History Socioeconomic History Marital status: Spouse name: Not on file Number of children: Not on file Years of education: Not on file Highest education level: Not on file Occupational History Not on file Social Needs Financial resource strain: Not on file Food insecurity Worry: Not on file Inability: Not on file Transportation needs Medical: Not on file Non-medical: Not on file Tobacco Use Smoking status: Never Smoker Smokeless tobacco: Never Used Substance and Sexual Activity Alcohol use: No Drug use: No Sexual activity: Not on file Lifestyle Physical activity Days per week: Not on file Minutes per session: Not on file Stress: Not on file Relationships Social connections Talks on phone: Not on file Gets together: Not on file Attends judaism service: Not on file Active member of club or organization: Not on file Attends meetings of clubs or organizations: Not on file Relationship status: Not on file Other Topics Concern Not on file Social History Narrative Not on file Allergies Allergies Allergen Reactions Levaquin [Levofloxacin] Tendon issues Sulfa (Sulfonamide Antibiotics) Rash Medications There are no discharge medications for this patient. Physical Exam Initial Vital Signs BP 139/87 (BP Location: Right arm, Patient Position: Sitting) Pulse 93 Temp 98.3 F (36.8 C) (Oral) Resp 15 Ht 5' 5 Wt 83.9 kg (185 lb) LMP 01/30/2021 SpO2 96% BMI 30.79 kg/m Vital Signs During ED Visit (as charted by nursing) Patient Vitals for the past 24 hrs: BP Temp Temp src Pulse Resp SpO2 Height Weight 02/14/21 1101 139/87 98.3 F (36.8 C) Oral 93 15 96 % 5' 5 83.9 kg (185 lb) Physical Exam Vitals signs and nursing note reviewed. Constitutional: Appearance: Normal appearance. HENT: Head: Normocephalic and atraumatic. Nose: Nose normal. Mouth/Throat: Mouth: Mucous membranes are moist. Eyes: Extraocular Movements: Extraocular movements intact. Pupils: Pupils are equal, round, and reactive to light. Neck: Musculoskeletal: Normal range of motion and neck supple. Cardiovascular: Rate and Rhythm: Normal rate and regular rhythm. Pulses: Normal pulses. Heart sounds: Normal heart sounds. Pulmonary: Effort: Pulmonary effort is normal. Breath sounds: Normal breath sounds. Abdominal: Palpations: Abdomen is soft. Tenderness: There is right CVA tenderness and left CVA tenderness. Musculoskeletal: Normal range of motion. Skin: General: Skin is warm. Capillary Refill: Capillary refill takes less than 2 seconds. Neurological: General: No focal deficit present. Mental Status: She is alert and oriented to person, place, and time. Psychiatric: Mood and Affect: Mood normal. Behavior: Behavior normal. Thought Content: Thought content normal. Judgment: Judgment normal. IMPRESSION/ ED COURSE Laboratory Results Labs Reviewed URINALYSIS - Abnormal; Notable for the following components: Result Value Leukocyte Esterase, Urine Moderate (*) WBCs, Urine 30 (*) Bacteria, Urine Rare (*) Squamous Epithelial 12 (*) All other components within normal limits Narrative: Microscopic examination is performed on all urinalysis samples and only positive findings are reported. The test for blood on the chemical analytic portion of urinalysis may also be positive due to hemoglobinuria and myoglobinuria and if red blood cells are present they are quantified by microscopic examination. CHEM 7 - Normal Narrative: The eGFR should be used for monitoring renal function only and not for medication dosing. HCG, SERUM, QUALITATIVE - Normal Narrative: Negative: The result is less than or equal to 5 mIU/mL of HCG. URINE AEROBIC CULTURE CBC AND DIFFERENTIAL Narrative: The following orders were created for panel order CBC w/ Diff. Procedure Abnormality Status --------- ------ CBC Auto Differential[[id number]] Final result Please view results for these tests on the individual orders. CBC WITH AUTO DIFFERENTIAL Imaging Results CT Kidney Stone Preliminary Result No acute process. No ureteral calculus. /[facility] Workstation ID: [id number] The patient has been informed that they may have pre-hypertension or hypertension based on a blood pressure reading in the Emergency Department. I recommend that the patient call the primary care provider listed on their discharge instructions or a physician of their choice as soon as possible to arrange follow-up in the next 4 weeks for further evaluation of possible pre-hypertension or hypertension. . FINAL DIAGNOSIS No diagnosis found. Back pain uti Labs Reviewed CBC AND DIFFERENTIAL Narrative: The following orders were created for panel order CBC w/ Diff. Procedure Abnormality Status --------- ------ CBC Auto Differential[[id number]] In process Please view results for these tests on the individual orders. CHEM 7 URINALYSIS HCG, SERUM, QUALITATIVE CBC WITH AUTO DIFFERENTIAL Radiographic Imaging (if any) During ED Visit CT Kidney Stone (Results Pending) Medications Ordered/Given During ED Visit Medications sodium chloride (PF) (NS) flush 5 mL (has no administration in time range) And sodium chloride 0.9% (NS) (has no administration in time range) Procedures Note: To expedite correspondence this note was generated by [employer] voice recognition software. Somegrammatical or spelling errors may occur using the system. All imaging has been read by a Radiologist. Shade Vaz CNP 02/14/21 1429 * Chetan Duncan RN - 02/14/2021 10:54 AM EDT Pt arrives ambulatory with mask on c/o lower back and R flank pain for approx 1 week. Was seen at [facility] for this and told her creatinine levels were increased. Told to come back if pain doesn't get better. Also endorses lump on back. Also endorses CP and electric shocks down my arms . documented in this [id number] History of Present illness Narrative* Pradeep Champion MD - 01/13/2021 2:30 PM EDT Subjective Patient ID: Griselda Wright is a 35 y.o. female. Pt is here for F/U Asthma. Reports some improvement in nocturnal sx with use of Duoneb. (+)Daily TERRY, occasional cough and chest heaviness. No wheezing. Pt ran out of Advair inhaler few days ago. Asthma She complains of cough, shortness of breath and wheezing. Associated symptoms include a sore throat. Pertinent negatives include no chest pain. Her past medical history is significant for asthma. Review of Systems Constitutional: Negative for chills and diaphoresis. HENT: Positive for sore throat and voice change. Negative for congestion and nosebleeds. Respiratory: Positive for cough, chest tightness, shortness of breath and wheezing. Cardiovascular: Negative for chest pain and leg swelling. All other systems reviewed and are negative. Objective Physical Exam Vitals and nursing note reviewed. Constitutional: General: She is not in acute distress. Appearance: Normal appearance. She is obese. She is not ill-appearing, toxic- appearing or diaphoretic. HENT: Head: Normocephalic and atraumatic. Mouth/Throat: Pharynx: No oropharyngeal exudate or posterior oropharyngeal erythema. Eyes: General: No scleral icterus. Extraocular Movements: Extraocular movements intact. Conjunctiva/sclera: Conjunctivae normal. Pupils: Pupils are equal, round, and reactive to light. Cardiovascular: Rate and Rhythm: Normal rate and regular rhythm. Pulses: Normal pulses. Heart sounds: Normal heart sounds. No murmur. No friction rub. No gallop. Pulmonary: Effort: Pulmonary effort is normal. No accessory muscle usage or respiratory distress. Breath sounds: Normal breath sounds. No wheezing, rhonchi or rales. Chest: Chest wall: No tenderness. Musculoskeletal: General: No swelling. Normal range of motion. Cervical back: No tenderness. Lymphadenopathy: Cervical: No cervical adenopathy. Skin: General: Skin is warm and dry. Capillary Refill: Capillary refill takes less than 2 seconds. Coloration: Skin is not jaundiced or pale. Findings: No bruising, erythema or rash. Neurological: General: No focal deficit present. Mental Status: She is alert and oriented to person, place, and time. Mental status is at baseline. Cranial Nerves: No cranial nerve deficit. Psychiatric: Mood and Affect: Mood normal. Behavior: Behavior normal. Thought Content: Thought content normal. Judgment: Judgment normal. Assessment/Plan Diagnoses and all orders for this visit: Moderate persistent chronic asthma without complication Poorly controlled asthma sx due to recent COVID-19 pneumonitis. Cont. Duoneb--3ml BID and Q4hrs prn. Cont. Use of Albuterol HFA--Q4hrs prn emergencies; may use 30minutes prior to exercises. Refill, cont. Advair 115/21--2puffs BID w/spacer. Ok sample of Symbicort--until pt gets Advair inhaler from her pharmacy. Encouraged cont. Use of PO Zyrtec/Nasal steroids.. * Izzy Myers RMA - 01/13/2021 2:30 PM EDT Pt arrives to Room 1. [facility] History of Present illness Narrative* Pradeep Champion MD - 12/23/2020 10:45 AM EST Subjective F/U Asthma Patient ID: Griselda Wright is a 35 y.o. female. Pt was called today via telehealth for F/U Asthma. She was ill in 08/2020 due to COVID-19 resp. Infection which self resolved. Reports asthma sx are slightly worsened since then. More coughing spells tracey. at night, heavy breathing and wheezing. Reports using her rescue inhaler more frequently. Compliant with inhalers--Advair BID, Flonase spray, Zyrtec PO. Was recently seen by [facility]--Dr. Mccormick and Montelukast was discontinued due to mood changes.. Pt does not and did not get annual Flu vaccine. Asthma She complains of cough, shortness of breath and wheezing. Associated symptoms include postnasal drip and sneezing. Pertinent negatives include no chest pain, rhinorrhea or trouble swallowing. Her past medical history is significant for asthma. Review of Systems Constitutional: Positive for fatigue. HENT: Positive for postnasal drip and sneezing. Negative for nosebleeds, rhinorrhea, sinus pressure, trouble swallowing and voice change. Respiratory: Positive for cough, chest tightness, shortness of breath and wheezing. Cardiovascular: Negative for chest pain, palpitations and leg swelling. All other systems reviewed and are negative. Objective Physical Exam Assessment/Plan Diagnoses and all orders for this visit: Moderate persistent asthma, unspecified whether complicated COVID-19 virus infection Poorly controlled asthma sx due to recent COVID-19 pneumonitis. Will script for Duoneb--3ml BID and Q4hrs prn. Needs Nebulizer equipment/supplies. Encouraged cont. Use of Advair HFA(higher dose until sx improve) BID, PO Zyrtec. DC Singulair. Pt declined prednisone due to intolerable side effects. Pt advised to call back in 2weeks if sx do not improve. * Izzy Myers RMA - 12/23/2020 10:45 AM EST Called pt for telehealth. Pt would still like call later today. She had COVID in Aug 2020 and is still struggling with shortness of breath, some chest pain and severe headaches. She has another appt from 3:30p to 4:30p. [facility] Flank pain Abdominal pain, unspecified site documented in this encounter [employer] Phone: evaluation note* Diagnosis Acute bilateral low back pain without sciatica- Primary Acute UTI Urinary tract infection, site not specified documented in this encounter [facility] note* Diagnosis Acute non-recurrent pansinusitis- Primary documented in this [facility]* Diagnosis Cervical lymphadenopathy- Primary Enlargement of lymph nodes documented in this encounter [facility] note* Diagnosis Moderate persistent chronic asthma without complication- Primary Upper respiratory tract infection, unspecified type documented in this encounter [facility] note* Diagnosis Chronic maxillary sinusitis- Primary Gastroesophageal reflux disease, unspecified whether esophagitis present documented in this encounter [facility] note* Diagnosis Chronic maxillary sinusitis documented in this encounter [facility] note* Diagnosis Chronic maxillary sinusitis- Primary Nasal septal deviation Deviated nasal septum Hypertrophy of nasal turbinates documented in this encounter [facility] note* Diagnosis Postoperative pain- Primary Other acute postoperative pain Nasal septal deviation Deviated nasal septum Chronic maxillary sinusitis 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 ADHD Anxiety Anxiety state, unspecified Depression Depressive disorder, not elsewhere classified Chronic pain Other chronic pain Nasal septal deviation Deviated nasal septum Chronic maxillary sinusitis 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 documented in this encounter [facility] note* Diagnosis Chronic maxillary sinusitis- Primary Nasal septal deviation Deviated nasal septum documented in this encounter [facility] note* Diagnosis Chronic maxillary sinusitis- Primary Nasal septal deviation Deviated nasal septum Hypertrophy of nasal turbinates documented in this encounter [facility] note* Diagnosis Moderate persistent asthma, unspecified whether complicated- Primary COVID-19 virus infection documented in this encounter [facility] note* Diagnosis Moderate persistent chronic asthma without complication- Primary documented in this encounter [facility] note* Diagnosis Flank pain Abdominal pain, unspecified site RUQ pain Abdominal pain, right upper quadrant documented in this encounter [facility] Work Phone: evaluation noteNo [facility] [employer] Other Evaluation note* Diagnosis Well female exam with routine gynecological exam- Primary Routine gynecological examination Dysmenorrhea documented in this encounter [facility] noteNo assessment information [facility] Work Phone: Evaluation note* Diagnosis Onset Date Resolution Status Contact dermatitis acute Frequent falls acute Rhinitis, allergic acute Perioral dermatitis acute Skin cancer screening acute [facility] Work Phone: Evaluation note* Diagnosis Onset Date Resolution Status Contact dermatitis acute Frequent falls acute Rhinitis, allergic acute Frequent falls acute Perioral dermatitis acute Skin cancer screening acute Fatigue acute Frequent falls acute Menorrhagia acute Vertigo acute [facility] Work Phone: Evaluation note* Diagnosis Menometrorrhagia- Primary Excessive or frequent menstruation Dysmenorrhea Family planning Other general counseling and advice for contraceptive management Hx of endometriosis documented in this encounter [facility]* Diagnosis Encounter to discuss test results- Primary Other specified counseling Menometrorrhagia Excessive or frequent menstruation Dysmenorrhea Hx of endometriosis Family planning Other general counseling and advice for contraceptive management documented in this encounter [facility]* Diagnosis Onset Date Resolution Status Admit Date Chest pain acute February 21, 2025 9:45am RUQ pain acute February 21, 2025 9:45am [facility] Work Phone: Evaluation note* Diagnosis Abdominal pain, unspecified abdominal location- Primary documented in this encounter [facility] general Narrative - Reported* Type Description Date Medical History Anxiety, generalized Medical History Chronic daily headache Medical History Thyroid dysfunction Medical History Carpal tunnel syndrome, bilatera l Medical History Facial rash Medical History Mass of breast, right Medical History B12 deficiency Medical History Pain, female pelvic Medical History Vitamin deficiency Surgical History COLONOSCOPY 2016 Hospitalization History SEE SURGICAL HX [facility] Other Hospital Discharge instructions* Attachments The following attachments cannot be sent through Care Everywhere. * UTI (Urinary Tract Infection): Female (Colombian) * Back Pain (Colombian) * Back: Stretches: Exercises (Colombian) [facility] Orders* Referral to Dermatology Time Frame: 06/13/24, Location: None [facility] Work Phone: Hospital Discharge instructionsAmbulatory Orders* Referral to PRODUCT OPERATIONS ASSOCIATE Time Frame: 07/09/24, Location: None [facility] Work Phone: Reason for referral (narrative)No reason for referral information [facility] Work Phone: Discharge Instructions * James Story MD - 06/06/2018 We did an ultrasound which did not find any evidence of abscess or stones or abnormal stretching ofyour kidney. Your urine has a small amount of inflammation which may be remained from prior infection. Your kidney function is normal and you do not have a white count. Please follow up with your doctor in a few days if symptoms do not improve. You can take tylenol and ibuprofen. in this encounter Assessments Diagnosis Right flank pain - Primary Abdominal pain, unspecified site Diagnosis Viral URI Acute upper respiratory infections of unspecified site Advance Directives Advance Directive Response Recorded Date/ Time Documents on File Type Date Recorded Patient Laundry Housekeeping Aide Expl anation ACP-Advance Directive ACP-Power of Civil Cad Designer Documents on File Type Date Recorded Patient Laundry Housekeeping Aide Expl anation Advance Directives and Livin g Will 02/14/2021 12:00 PM Documents on File Type Date Recorded Patient Laundry Housekeeping Aide Expl anation Advance Directives and Living Will Power of Civil Cad Designer Documents on File Type Date Recorded Patient Laundry Housekeeping Aide Expl anation Advance Directives and Living Will Power of Civil Cad Designer Advance Directive Response Recorded Date/ Time Advance Directives No April 15 11:40am Chief Complaint and Reason for Visit Reason for Visit GRAN PT STS R FOOT P AIN LOWER BACK PAIN Chief Complaint rash on legs Chief Complaint rash on legs spot on face Reason for Visit Contact dermatitis Frequent falls Rhinitis, allergic Perioral dermatitis Skin cancer screening Chief Complaint rash on legs spot on face heavy/long periods Reason for Visit Contact dermatitis Frequent falls Rhinitis, allergic Frequent falls Perioral dermatitis Skin cancer screening Fatigue Frequent falls Menorrhagia Vertigo Chief Complaint Admit Date R30.0 December 31, 2024 10: 00am R Side Pain/Nauseous February 21, 2025 9:45a m Reason for Visit Admit Date Chest pain February 21, 2025 9:45am RUQ pain February 21, 2025 9:45am Chief Complaint Admit Date R Side Pain/Nauseous February 21, 2025 9:45a m Er follow up/ IBS March 07, 2025 10:21 am sore throat, fatigue, cough April 28 1:49pm Reason for Visit Admit Date Anxiety, generalized February 21, 2025 9:45a m Chest pain February 21, 2025 9:45am RAD (reactive airway disease) February 21 9:45am RUQ pain February 21, 2025 9:45am Gastroenteritis March 07, 2025 10:21 am Sore throat April 28, 2025 1:49p m Chief Complaint Admit Date sore throat, fatigue, cough April 28 1:49pm Left eye redness, discharge July 072024 9:03am Reason for Visit Admit Date Sore throat April 28, 2025 1:49p m Summary Purpose Family History No Family History Records FoundNo Family History Records FoundNo Family History Records FoundNo Family History Records FoundNo Family History Records FoundNo Family History Records FoundNo Family History Records Found Reason for Referral Status Reason Specialty Diagnoses / Procedures Referred By Contact Referred To Contact Pending Review Radiology Diagnoses Chronic maxillary sinusitis Procedures CT SINUS W NAVIGATION Drake Otoole MD [address] [place] [address] Status Reason Specialty Diagnoses / Procedures Referre d By Contact Referred To Contact Closed Radiology Diagnoses Chronic maxillary sinusitis Procedures CT SINUS W NAVIGATION Drake Otoole MD [address] [place] [address] Reason [facility] at [facility] [phone] Diagnosis 1 Generalized anxiety disorder (F41.1) Referral Organization [facility] [address] [facility] Referring Provider First Name Disha Referring Provider Last Name Anna Referring Provider Specialty Family Medi cine Referred Organization Unknown Facility Referred Provider Specialty Psychiatry Referral Priority Routine Reason [facility] Diagnosis 1 Generalized anxiety disorder (F41.1) Referral Organization [facility] [address] [facility] Referring Provider First Name Disha Referring Provider Last Name Anna Referring Provider Specialty Family Medi cine Referred Organization Unknown Facility Referred Provider Specialty Psychologist Referral Priority Routine Reason Dr. Awan Diagnosis 1 Frequent menstruatio n (N92.0) Referral Organization [facility] [address] [facility] Referring Provider First Name Disha Referring Provider Last Name Anna Referring Provider Specialty Family Medi cine Referred Organization Silvestre Alvarado [facility] Referred Address [address] [place] [id number] Referred Provider Specialty OB - Gynecol ogy Referral Priority Routine Additional Source Comments ED Provider Notes - James Story MD - 06/06/2018 4:15 PM EDTED Notes - Muriel De Dios RN - 06/06/2018 4:02 PM EDTED Notes - Muriel De Dios RN - 06/06/2018 3:57 PM EDT Miscellaneous Notes (unrecog nized section and content) Formatting of this note may be different from the original. ED PROVIDER NOTE [facility] EMERGENCY [facility]PARTMENT NAME: Griselda Wright AGE: 32 y.o. : 1985 VISIT DATE: 06/06/2018 CSN: [id number] PCP: Renay Younger CNP Chief Complaint Patient presents with Back Pain Leg Swelling Flank Pain HPI 32 yo female presents with flank pain. History provided by patient. Patient presents with right flank pain that started on Monday and has been persistent. Seen by MD on Monday, UA with UTI and started on cipro. Since then, she has noticed some swelling on her feet and ankles (although improved today best so far ) and by her face. She also had some pressure around her bladder area. [place] warm, but no fevers. Nausea, no vomiting. History of LULU but recovered. Past Medical History: Diagnosis Date Asthma Hypoglycemia Kidney stone Renal disorder LULU 08/2015 Past Surgical History: Procedure Laterality Date COLONOSCOPY UPPER GASTROINTESTINAL ENDOSCOPY WISDOM TOOTH EXTRACTION History reviewed. No pertinent family history. Social History Social History Marital status: Spouse name: N/A Number of children: N/A Years of education: N/A Occupational History Not on file. Social History Main Topics Smoking status: Never Smoker Smokeless tobacco: Never Used Alcohol use No Drug use: No Sexual activity: Not on file Other Topics Concern Not on file Social History Narrative No narrative on file Previous Medications No medications on file Allergies Allergen Reactions Levaquin [Levofloxacin] Tendon issues Sulfa (Sulfonamide Antibiotics) Rash Review of Systems Constitutional: Negative. Negative for fever. HENT: Negative. Respiratory: Negative. Negative for shortness of breath. Cardiovascular: Positive for leg swelling. Negative for chest pain. Gastrointestinal: Positive for abdominal pain (suprapubic, resolved). Negative for nausea and vomiting. Genitourinary: Positive for flank pain. Negative for frequency and hematuria. Skin: Negative. Negative for rash. Neurological: Negative. Negative for headaches. Psychiatric/Behavioral: Negative. Patient Vitals for the past 24 hrs: BP Temp Temp src Pulse Resp SpO2 Height Weight 06/06/18 1724 115/74 - - 68 (!) 20 99 % - - 06/06/18 1528 136/76 98.3 F (36.8 C ) Oral 62 18 98 % 5' 4 85.3 kg (188 lb) Physical Exam Constitutional: She is oriented to person, place, and time. She appears well-developed and well-nourished. No distress. HENT: Head: Normocephalic and atraumatic. Eyes: EOM are normal. Pupils are equal, round, and reactive to light. Neck: Normal range of motion. Neck supple. Cardiovascular: Normal rate. Pulmonary/Chest: Effort normal and breath sounds normal. Abdominal: Soft. She exhibits no distension. There is no tenderness. There is CVA tenderness (right). Musculoskeletal: Normal range of motion. She exhibits edema (trace pedal bilateral). Neurological: She is alert and oriented to person, place, and time. Skin: Skin is warm and dry. Capillary refill takes less than 2 seconds. She is not diaphoretic. Psychiatric: She has a normal mood and affect. Nursing note and vitals reviewed. Laboratory & Radiographic Imaging (if done): Results for orders placed or performed during the hospital encounter of 06/06/18 BMP Result Value Ref Range Sodium 139 135 - 145 mmol/L Potassium 3.9 3.5 - 5.1 mmol/L Chloride 104 98 - 108 mmol/L Bicarbonate 23 21 - 32 mmol/L Anion Gap 16 10 - 20 mmol/L Glucose 88 65 - 99 mg/dL BUN 10 8 - 25 mg/dL Creatinine 0.84 0.40 - 1.10 mg/dL eGFR 92 >=60 mL/min/1.73 m2 eGFR 106 >=60 mL/min/1.73 m2 BUN/Creatinine Ratio 11.9 10.0 - 20.0 Calcium 8.9 8.4 - 10.2 mg/dL Urinalysis Result Value Ref Range Color, Urine Colorless Colorless, Yellow Clarity, Urine Clear Clear Specific [place] 1.004 (L) 1.005 - 1.025 pH, Urine 5.0 5.0 - 7.0 Protein, Urine Negative Negative mg/dL Glucose, Urine Negative Negative mg/dL Ketones, Urine Negative Negative mg/dL Bilirubin, Urine Negative Negative Urobilinogen, Urine <2.0 <2.0 mg/dL Blood, Urine Small (A) Negative Nitrite, Urine Negative Negative Leukocyte Esterase, Urine Small (A) Negative WBCs, Urine 6 (H) 0 - 5 /hpf RBCs, Urine 1 0 - 3 /hpf Bacteria, Urine None Seen None Seen /hpf Squamous Epithelial <1 0 - 4 /hpf Transitional Epithelial <1 0 - 1 /hpf Urine Result Value Ref Range Beta-hCG, Ur, Qual Negative Negative Gold Top Result Value Ref Range Extra Tube Hold for add-ons. Light Blue Top Result Value Ref Range Extra Tube Hold for add-ons. Srinivasan Top Result Value Ref Range Extra Tube Hold for add-ons. CBC Auto Differential Result Value Ref Range WBC 9.13 4.50 - 11.00 K/mcL RBC 4.64 4.00 - 5.20 M/mcL Hemoglobin 13.9 12.0 - 16.0 g/dL Hematocrit 41.0 36.0 - 46.0 % MCV 88.4 80.0 - 100.0 fL MCH 30.0 26.0 - 34.0 pg MCHC 33.9 31.0 - 37.0 g/dL Platelets 295 150 - 400 K/mcL RDW - CV 12.2 11.6 - 14.8 % MPV 10.0 9.0 - 15.5 fL Neutrophils 64.9 % Lymphocytes 23.0 % Monocytes 9.2 % Eosinophils 2.2 % Basophils 0.4 % IG Percent 0.30 % Neutrophils Abs 5.92 1.70 - 7.00 K/mcL Lymphocytes Abs 2.10 0.90 - 4.00 K/mcL Monocytes Abs 0.84 0.30 - 0.90 K/mcL Eosinophils Abs 0.20 0.00 - 0.50 K/mcL Basophils Abs 0.04 0.00 - 0.30 K/mcL IG Absolute 0.03 0.00 - 0.30 K/mcL Nucleated RBC 0.0 % Nucleated RBC Abs 0.00 0.00 - 0.00 K/mcL US Renal and Bladder Final Result Sonographic appearance of the kidneys and bladder is within normal limits. No hydronephrosis. [facility] Workstation ID: [id number] Procedures [facility] Patient presents with right flank pain for a few days, treated with ciprofloxacin for suspected UTI. No UA or cultures available from her clinic. Right CVA tenderness, no abdominal tendermess. Ddx includes pyelo, stones, renal failure, nephrotic symptom, MSK. Low concern for pelvic or abdominal process based on exam. Labs reviewed: normal Cr, UA with minimal pyuria (possibly nearly resolved UTI), no leukocytosis. Ultrasound performed: no findings of hydro, stones, or abscess. Normal kidney Patient received toradol with improvement. Discussed with patient f/u with PMD in a few days for recheck, red flags to return. Patient agreeable with plan. . . Clinical Impression: SNOMED CT(R) 1. Right flank pain RIGHT FLANK PAIN ED Disposition ED Disposition Condition Comment Discharge Stable Griselda Wright discharged to home/self care in stable condition. Follow-up Information 1. M. Talisha Younger CNP. Specialty: Nurse Practitioner Why: if symptoms do not improve 1944 [facility] [id number] Contact information for after-discharge care Follow-up information has not been specified. New Prescriptions No medications on file James Story MD 06/06/181801 C/o of lower dull cramping in abdomen and rt and lt flank pain stabbing pressure off and on since Monday Yesterday and today she had swelling of face lips and ankles. Had swelling in feet on Monday. Patient reports being prescribed Ciprofloxacin and started it on Monday for a bladder infection. Patient ambulates into triage. Patient reports, I have a history of kidney problems. And I think I have a kidney infection. And I have been having swelling pain to my feet and ankles. And I have pain to my lower back in this encounter INFORMATION SOURCE (unrecogn ized section and content) DATE CREATED AUTHOR 12/24/2019 [facility] DATE CREATED AUTHOR AUTHOR'S ORGANIZ ATION 02/15/2021 [facility] DATE CREATED AUTHOR AUTHOR'S ORGANIZ ATION 04/04/2021 [facility] DATE CREATED AUTHOR AUTHOR'S ORGANIZ ATION 02/01/2023 [facility] DATE CREATED AUTHOR AUTHOR'S ORGANIZ ATION 09/03/2024 [facility] EPIC DATE CREATED AUTHOR AUTHOR'S ORGANIZ ATION 01/03/2025 [facility] DATE CREATED AUTHOR AUTHOR'S ORGANIZ ATION 03/02/2025 [facility] Reason for Visit (unrecogniz ed section and content) Reason Comments Flank Pain Back Pain Chest Pain Reason Comments Headache Reason Comments Edema Reason Comments Asthma 3 mo f/u Reason Comments Recurrent Sinusitis Status Reason Specialty Diagnoses / Procedures Referre d By Contact Referred To Contact Closed Radiology Diagnoses Chronic maxillary sinusitis Procedures CT SINUS W NAVIGATION Drake Otoole MD [address] [place] [address] Reason Comments Follow-up Sinus Specialty Diagnoses / Procedures Referred By Lary snyder Referred To Contact Diagnoses Nasal septal deviation Chronic maxillary sinusitis 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 Nasal septal deviation [J34.2] Chronic maxillary sinusitis [J32.0] 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] Procedures Case Request Operating Room: FUNCTIONAL ENDOSCOPIC SINUS SURGERY, SEPTOPLASTY, TURBINOPLASTY FUNCTIONAL ENDOSCOPIC SINUS SURGERY SEPTOPLASTY TURBINOPLASTY Drake Otoole MD [address] [place] [address] Referral ID Status Reason Start Date Expiration Date V isits Requested Visits Authorized [id number] Authorized 06/10/2021 06/10/2022 1 1 Reason Comments Post-op Specialty Diagnoses / Procedures Referred By Lary snyder Referred To Contact Otolaryngology Diagnoses [facility] Procedures POST-OP [facility] [address] [place] [address] Drake Otoole MD [address] [place] [address] Referral ID Status Reason Start Date Expiration Date V isits Requested Visits Authorized [id number] Authorized 07/07/2021 07/07/2022 4 4 Reason Comments Follow-up Pt states breathing much better. Pt states still having headaches and have nose pain. Reason Comments Asthma Reason Comments Asthma still not feeling be tter/allergies/raspy voice Reason Comments Gynecologic Exam Patient referred by Dr. Disha Castillo for heavy, prolonged periods in the past year which worsened in the past 3 months . Patient states that in May her period lasted 14 days. Patient reports that she has a period every month lasting 11-14 days with heavy bleeding and moderate cramping, taking Ibuprofen every 4-6 hours for relief. Changing a tampon with period panties every 3-4 hours. LMP 07/31/24. Does not use anything for birthcontrol. Not sexually active. Reason Comments Follow-up Patient here for a f ollow up after pelvic ultrasound due to heavy and painful periods. Denies other problems. LMP 08/31/24 Reason Comments Abdominal Pain Nausea Skin is sensitive/fe els cold. Has been going on and off for about 1 month. Had gallbladder ultrasound Scheduled Active and Recently Administ ered Medications (unrecognized section and content) Medication Order 06/30/2021 07/01/2021 07/02/2021 acetaminophen (Ofirmev) injection 1,000 mg (COMPLETED) 1,000 mg, intravenous, Administer over 15 Minutes, Once, On Mon07/02/21 at 1100, For 1 dose, Recovery (only), *Open tubing vent* 1100 (New Bag - Prov ider: Xochilt Gutierrez, YANG)1115 (Stopped - Provider: Xochilt Gutierrez RN) cocaine 4 % nasal solution (COMPLETED) nasal, Once, On Mon07/02/21 at 0845, For 1 dose, Intraprocedure, To be administered by physician in the OR 0845 (Due)0901 (Give n - Provider: Drake Otoole MD) ipratropium-albuteroL (Duo-Neb) 0.5-2.5 mg/3 mL nebulizer solution 3 mL (COMPLETED) 3 mL, nebulization, Once, On Mon07/02/21 at 0700, For 1 dose, Preprocedure 0720 (Given - Provid er: Jessy Cota RN) oxymetazoline (Afrin) 0.05 % nasal spray 3 spray (COMPLETED) 3 spray, Each Nostril, Once, On Mon07/02/21 at 0700, For 1 dose, Preprocedure, Please administer to patient on arrival in Pre-Op 0736 (Given - Provid er: Jessy Cota RN) Continuous Medication Order 06/30/2021 07/01/2021 07/02/2021 lactated Ringer's infusion (CANCELED) 100 mL/hr, intravenous, at 100 mL/hr, Continuous, Starting on Mon07/02/21 at 1045, Recovery (only) 1043 (Continued from OR - Provider: Xochilt Gutierrez RN - Comment: 1000 TO COUNT)1215 (Stopped - Provider: Ravi Dick RN) PRN Medication Order 06/30/2021 07/01/2021 07/02/2021 HYDROmorphone (Dilaudid) injection 0.5 mg (COMPLETED) 0.5 mg, intravenous, Every 5 min PRN, severe pain, Starting on Mon07/02/21 at 1040, For 4 doses, Recovery (only), Max total dose 2 mg. Hold for sat < 90 or resp < 10. 1042 (Given - Provid er: Xochilt Gutierrez RN)1049 (Given - Provider: Xochilt Gutierrez RN)1123 (Given - Provider: Xochilt Gutierrez RN)1137 (Given - Provider: Xochilt Gutierrez RN) lidocaine-epinephrine (Xylocaine W/EPI) 1 %-1:100,000 injection (CANCELED) As needed, Starting on Mon07/02/21 at 0901, Intraprocedure 0901 (Given - Provid er: Drake Otoole MD) mupirocin (Bactroban) 2 % ointment (CANCELED) As needed, Starting on Mon07/02/21 at 1020, Intraprocedure 1020 (Given - Provid er: Drake Otoole MD) sodium chloride 0.9 % irrigation solution (CANCELED) As needed, Starting on Mon07/02/21 at 0901, Intraprocedure 0901 (Given - Provid er: Drake Otoole MD) Care Teams (unrecognized sec tion and content) Cost Estimator Relationship Specialty Start Date End Date Jacy Younger, [employer]PERATOR [address] [place] [address] PCP - General 04/28/21 Cost Estimator Relationship Specialty Start Date End Date Jacy Youngeraine, [employer] OPERATOR [address] [place] [address] PCP - General 04/28/21 Cost Estimator Relationship Specialty Start Date End Date Jacy Youngeraine, [employer] OPERATOR [address] [place] [address] PCP - General 04/28/21 Cost Estimator Relationship Specialty Start Date End Date Ana Ayala DO [address] [facility] [place] [address] PCP - General 10/10/15 Cost Estimator Relationship Specialty Start Date End Date Disha Castillo MD [address] [place] [facility] [id number] PCP - General Family Medicine 11/22/23 Cost Estimator Relationship Specialty Start Date End Date Disha Castillo MD [address] [place] [facility] [address] PCP - General Family Medicine 11/22/23 Team Status: Active Member Role Status Dates Disha Castillo MD Primary Care Provider Active Team Status: Inactive Member Role Status Dates Disha Castillo MD Primary Care Provide r, Attending Provider Active Start: April 15, 2024 End: April 15, 2024 Team Status: Inactive Member Role Status Dates Disha Castillo MD Primary Care Provide r, Attending Provider Active Start: June 13, 2024 End: June 13, 2024 Team Status: Inactive Member Role Status Dates Disha Castillo MD Primary Care Provide r, Attending Provider Active Start: July 09, 2024 End: July 09, 2024 Cost Estimator Relationship Specialty Start Date End Date Disha Castillo MD [address] [place] [facility] [place] [address] PCP - General Family Medicine 11/22/23 Cost Estimator Relationship Specialty Start Date End Date Disha Castillo MD [address] [place] [facility] [address] PCP - General Family Medicine 11/22/23 Cost Estimator Relationship Specialty Start Date End Date Disha Castillo MD [address] [place] [facility] [address] PCP - General Family Medicine 11/22/23 Team Status: Inactive Member Role Status Dates Disha Castillo MD Primary Care Provide r, Attending Provider Active Start: December 31, 2024 End: December 31, 2024 Team Status: Inactive Member Role Status Dates Disha Castillo MD Primary Care Provide r, Attending Provider Active Start: February 21, 2025 End: February 21, 2025 Cost Estimator Relationship Specialty Start Date End Date Ana Ayala DO [address] [place] [phone] PCP - General 10/10/15 Team Status: Inactive Member Role Status Dates Disha Castillo MD Primary Care Provider Active Start: February 21, 2025 End: February 21, 2025 Disha Castillo MD Attending Provider Active St art: February 21, 2025 End: February 21, 2025 Team Status: Inactive Member Role Status Dates Disha Castillo MD Primary Care Provider Active Start: March 07, 2025 End: March 07, 2025 Disha Castillo MD Attending Provider Active St art: March 07, 2025 End: March 07, 2025 Team Status: Inactive Member Role Status Dates Disha Castillo MD Primary Care Provider Active Start: April 28, 2025 End: April 28, 2025 Griselda Mcrae APRN [employer] Attending Provider Act margaret Start: April 28, 2025 End: April 28, 2025 Team Status: Inactive Member Role Status Dates Disha Castillo MD Primary Care Provider Active Start: July 07, 2025 End: July 07, 2025 Magalis Hutton APRN Attending Provider Active Start: July 07, 2025 End: July 07, 2025 Goals (unrecognized section and content) Goals may be documented in a n alternate section Ordered Prescriptions (unrec ognized section and content) Prescription Sig Dispense Quantity Refills Last Filled Start Date End Date dicyclomine (BENTYL) 10 MG capsule Take 1 capsule by mouth 3 times daily as needed (abdominal pain) 15 capsule 03/01/2025 dicyclomine (BENTYL) 10 MG capsule Take 1 capsule by mouth 3 times daily as needed (abdominal pain) 15 capsule 03/01/2025 5 FOR RECORDS PERTAINING TO PATIENTS WHO ARE OR HAVE BEEN ENROLLED IN A CHEMICAL DEPENDENCY/SUBSTANCEABUSE PROGRAM, SOME INFORMATION MAY BE OMITTED. This clinical summary was aggregated from multiple sources. Caution should be exercised in using it in the provision of clinical care. This summary normalizes information from multiple sources, and as a consequence, information in this document may materially change the coding, format and clinical context of patient data. In addition, data may be omitted in some cases. CLINICAL DECISIONS SHOULD BE BASED ON THE PRIMARY CLINICAL RECORDS. [facility], [facility]. provides no warranty or guarantee of the accuracy or completeness of information in this document.
[2025-07-24 21:59] LABS: Anion Gap 15.0; Blood Urea Nitrogen 14.0 mg/dL (7.0-18.0); Calcium 8.6 mg/dL (8.5-10.1); Carbon Dioxide 23.3 mmol/L (21.0-32.0); Chloride 102 mmol/L (98-107); Estimated GFR (African America >60 (>=60 mL/min/1.73m^2); Estimated GFR (Non-African Ame >60 (>=60 mL/min/1.73m^2); Glucose 108 mg/dL (74-106); Potassium 3.3 mmol/L (3.5-5.1); Sodium 137 mmol/L (136-145)
[2025-07-24] MEDS: MECLIZINE HCL 12.5 MG TABLET 25 MG PO (22:22)
== END 2025-07-24 23:06 | disposition home or self-care (01) ==
PROVIDERS: Emergency Provider Emergency Medicine; PCP Family Medicine
DX: R42 Dizziness and giddiness (principal)
CPT/HCPCS: 36415; 70450; 80048; 84703; 85025; 93005; 99285